=== PATIENT | female | born 1960 | race Caucasian/White ===

== ENCOUNTER 2019-11-10 20:29 | Emergency (ER) | payer MEDICARE, SELFPAY ==
[2019-11-10 20:31] VITALS: BP 140/84; PULSE 91; RESP 16; TEMP 37; O2SAT 97
[2019-11-10 20:49] VITALS: BP 140/84; PULSE 91; RESP 16; TEMP 37; O2SAT 97; BMI 30.4
--- NOTE | 2019-11-10 20:57 | CT_ITS ---
Procedure: CT ABDOMEN PELVIS W CON Patient Age:59Y CLINICAL INDICATION: lower abd pain, bloody stools-started at noon monday. COMPARISON: No exams were available for comparison TECHNIQUE: 75 CC OPTIRAY 350 IV CONTRAST UTILIZED Axial images obtained with sagittal and coronal reformats. All CT scans at the facility use one or more dose reduction, viz: automated exposure control, m THE a/kV adjustment per patient size (including targeted exams where dose is matched to indication, i.e. head), or iterative reconstruction technique. FINDINGS: lower thorax: no acute finding THE moderate-generous size hiatal hernia measures up to 4.5 cm diameter. oblique ge junction is above the hiatus ABDOMEN: Liver: No masses or biliary dilatation. Gallbladder: small contracted GB. No radio opaque stones. CBD WNL Pancreas: No masses or peripancreatic fluid collections. spleen: normal size, subtle inhomogeneous enhancement of the spleen may likely reflects early enhancement pattern Adrenals: unremarkable Kidneys/ureters: unremarkable PELVIS: UTERUS NORMAL SIZE, TO THE LEFT OF MIDLINE. NO ADNEXAL MASSES. NO FREE FLUID Bladder: Nondistended. No obvious stones or masses. ABDOMEN & PELVIS: Stomach bowel: Nondistended. No obvious mass or thickening. LARGE BOWEL. [id number] stool at the right and transverse colon.. Upper normal wall thickness at right colon may merely reflect lack distension. however blood in stool of would encourage colonoscopy NO DIVERTICULITIS EVIDENT. NO SIGNIFICANT DIVERTICULAR DISEASE IDENTIFIED APPENDIX NORMAL, well visualized but. terminal ileum unremarkable Peritoneum: No abnormal fluid collections. No obvious inflammatory changes. No free air. Lymph nodes: No enlarged lymph nodes apparent. Vasculature: no evidence of abdominal aortic aneurysm.. minimal atherosclerotic calcification lower abdominal aorta. no retroperitoneal hemorrhage evident. Bones: no acute fracture pronounced degenerative arthritic changes of both hips. l3/4 with degenerative disc space narrowing and spondylosis IMPRESSION: no acute findings abdomen or pelvis Hiatal hernia., with upper normal wall thickness here upper normal wall thickness at the right colon WELL AREA towards splenic flexure noted-most likely reflecting lack distension.. however if the blood in stool persist of consider further evaluation with colonoscopy. prominent degenerative changes bilateral hip joints incidentally noted Dictated by: Noble Camarillo MD 11/11/2019 09:10 Electronically signed by Noble Camarillo MD in [place] 11/11/2019 09:10
[2019-11-10 21:00] VITALS: BP 134/81; PULSE 84; RESP 18; O2SAT 98
[2019-11-10 21:06] LABS: Microscopic, Urine URINE MICROSCOPIC (MICROSCOPIC)
[2019-11-10 21:13] LABS: Appearance,Urine CLEAR (Clear); Bilirubin,Urine Negative (Negative); Blood, Urine 1+ (Negative); Color,Urine YELLOW (Yellow); Glucose,Urine (UA) Negative (Negative); Ketones,Urine Negative (Negative); Leukocyte Esterase,Urine TRACE (Negative); Nitrate,Urine Negative (Negative); Protein,Urine Negative (Negative); Urobilinogen,Urine 0.2 EU/dl (0.2)
[2019-11-10 21:13] LABS: Basophils # 0.1 K/mm3 (0-0.2); Basophils % 1.1 % (0.1-2.0); Eosinophils # 0.1 K/mm3 (0.0-0.4); Eosinophils % 1.9 % (0.1-12.0); Hematocrit 42.4 % (37.0-47.0); Hemoglobin 13.3 g/dL (12.2-16.2); Lymphocytes # 2.4 K/mm3 (0.7-4.5); Lymphocytes % 34.4 % (10-50); Mean Corpuscular HGB Conc 31.5 g/dL (31.8-35.4); Mean Corpuscular Hemoglobin 28.7 pg (27.0-31.2); Mean Platelet Volume 8.3 fl (7.4-10.4); Monocytes # 0.4 K/mm3 (0.1-1.0); Monocytes % 5.3 % (1.7-9.3); Neutrophils # 4.1 K/mm3 (1.8-7.8); Neutrophils % 57.3 % (37.0-80.0); Platelet Count 253 K/mm3 (142-424); Red Blood Count 4.65 M/mm3 (4.20-5.40); Red Cell Distribution Width 13.6 % (11.5-17.5); White Blood Count 7.1 K/mm3 (4.8-10.8)
[2019-11-10 21:20] LABS: Occult Blood,Stool Positive (Negative)
[2019-11-10 21:22] LABS: Alanine Aminotransferase 32 U/L (12-78); Albumin Level 4.4 g/dl (3.5-5.0); Albumin/Globulin Ratio 1.4 (1.1-1.8); Alkaline Phosphatase 93 U/L (38-126); Amylase 68 U/L (30-110); Anion Gap 13.7 mEq/L (5-15); Aspartate Amino Transferase 48 U/L (14-36); Bilirubin,Total 0.3 mg/dl (0.2-1.3); Blood Urea Nitrogen 9 mg/dl (7-17); Calcium 9.3 mg/dl (8.4-10.2); Carbon Dioxide 24 mmol/L (22.0-30.0); Chloride 103 mmol/L (98-107); Creatinine Clearance Estimated 82 mL/min (50-200); Estimated Glomerular Filt Rate 64 ml/min (>60); GFR (African American) 77 ML/MIN (>60); Globulin 3.2 g/dL (1.3-3.2); Glucose 102 mg/dl (74-100); Lipase 215 U/L (23-300); Potassium 3.7 mmoL/L (3.5-5.1); Sodium 137 mmol/L (136-145); Total Protein,Serum 7.6 g/dl (6.3-8.2)
[2019-11-10 21:27] LABS: C-Reactive Protein 3.2 mg/L (0-4)
--- NOTE | 2019-11-10 21:28 | HMH.EDNVD ---
ED Disposition Clinical Impression: BRBPR (bright red blood per rectum) Abdominal pain Qualifiers: Abdominal location: lower abdomen, unspecified Qualified Code(s): R10.30 - Lower abdominal pain, unspecified Disposition: Home, Self-Care Condition on Discharge: Good Instructions: DI for Acute Abdomen Additional Instructions: call pcp in am Referrals: Provider,Referral, [Primary Care Provider] - - Critical Care Critical Care Time: No Attestation: On 11/10/19, the high probability of a clinically significant, sudden or life threatening deterioration of the following system(s) required my full and direct attention, intervention and personal management. The time I documented below is in addition to time spent performing reported procedures but includes the following listed in this critical care notation. Medical Decision Making - Medical Records Medical records reviewed: Yes: I reviewed the patient's medical records. - Azeem Inquiry Pt receiving controlled substance: No Vital Signs: 11/10/19 20:49 Temperature 98.6 F Temperature Source Oral Pulse Rate [Right] 91 H Respiratory Rate 16 Blood Pressure [Right Arm] 140/84 Blood Pressure Mean [Right Arm] 102 Blood Pressure Source [Right Arm] Automatic Cuff Blood Pressure Position [Right Arm] Sitting 02 Sat by Pulse Oximetry 97 Oxygen Delivery Method Room Air - Lab Data Lab results reviewed: Yes: I reviewed the patient's lab results. Lab Results 11/10/19 20:45: Urine Color Yellow, Urine Appearance Clear, Urine pH 6.0, Ur Specific [place] 1.010, Urine Protein Negative, Urine Glucose (UA) Negative, Urine Ketones Negative, Urine Blood 1+, Urine Nitrate Negative, Urine Bilirubin Negative, Urine Urobilinogen 0.2, Ur Leukocyte Esterase Trace, Urine RBC 3-5, Ur Squamous Epith Cells 5-10 11/10/19 21:02: WBC 7.1, RBC 4.65, Hgb 13.3, Hct 42.4, MCV 91.0, MCH 28.7, MCHC 31.5 L, RDW 13.6, Plt Count 253, MPV 8.3, Neut % (Auto) 57.3, Lymph % (Auto) 34.4, [place] % (Auto) 5.3, Eos % (Auto) 1.9, Baso % (Auto) 1.1, Neut # (Auto) 4.1, Lymph # (Auto) 2.4, [place] # (Auto) 0.4, Eos # (Auto) 0.1, Baso # (Auto) 0.1, ESR 25 11/10/19 21:02: Sodium 137, Potassium 3.7, Chloride 103, Carbon Dioxide 24, Anion Gap 13.7, BUN 9, Creatinine 0.90, Estimated Creat Clear 82, Estimated GFR 64, Est GFR ( Amer) 77, Glucose 102 H, Calcium 9.3, Total Bilirubin 0.3, AST 48 H, ALT 32, Alkaline Phosphatase 93, C-Reactive Protein 3.2, Total Protein 7.6, Albumin 4.4, Globulin 3.2, Albumin/Globulin Ratio 1.4, Amylase 68, Lipase 215 11/10/19 21:05: Stool Occult Blood Positive A Result diagrams: 11/10/19 21:02 11/10/19 21:02 Orders (Tests/Meds): ED MEDICATIONS Generic Name Dose Route Start Last Admin Trade Name Freq PRN Reason Stop Dose Admin Sodium Chloride 1,000 mls @ 999 mls/hr 11/10/19 21:00 11/10/19 21:10 Sod Chlor 0.9% 1000ml Bag IV 11/10/19 22:00 999 mls/hr .[id number] [place] Administration Discontinued Medications Generic Name Dose Route Start Last Admin Trade Name Freq PRN Reason Stop Dose Admin Ioversol 75 ml 11/10/19 22:19 11/10/19 22:20 Rad-Optiray 350 100ml Vial IV 11/10/19 22:20 75 ml ONCE ONE Administration Protocol Pantoprazole Sodium 80 mg 11/10/19 20:57 11/10/19 21:10 Protonix 40mg Vial IV 11/10/19 20:58 80 mg ONCE ONE Administration Sodium Chloride 10 ml 11/10/19 22:19 11/10/19 22:20 Rad-Saline Flush 10ml Syringe IV 11/10/19 22:20 10 ml ONCE ONE Administration ORDERS Category Date Time Status CT abdomen pelvis w con Stat Cat Scan 11/10/19 20:57 Taken - CT Data CT Scan: Abdomen, Pelvis Time Received: 23:[address] Reviewed: Yes: I have viewed the radiologist's interpretation Preliminary Findings: Normal/NAD Nausea/Vomiting/Diarrhea HPI - General Chief complaint: Abdominal Pain Stated complaint: Blood in stools, abd pain Time Seen by Provider: 11/10/19 21:00 Mode of Arrival: Ambulatory Source of Information:
[2019-11-10 21:39] LABS: Erythrocyte Sedimentation Rate 25 mm/hr (0-30)
[2019-11-10 22:00] VITALS: BP 139/80; PULSE 90; RESP 16; O2SAT 98
[2019-11-10 23:00] VITALS: BP 144/86; PULSE 89; RESP 18; O2SAT 97
--- NOTE | 2019-11-10 23:30 | PC.NURSE ---
saw was discharged prior to 2329. so not vitals for that time.
[2019-11-10 23:36] VITALS: BP 144/86; PULSE 89; RESP 16; TEMP 37; O2SAT 97
== END 2019-11-10 23:37 | disposition home or self-care (01) ==
PROVIDERS: Emergency Provider Emergency Medicine
DX: K62.5 Hemorrhage of anus and rectum (principal); R10.30 Lower abdominal pain, unspecified; F12.10 Cannabis abuse, uncomplicated; E78.5 Hyperlipidemia, unspecified; K21.9 Gastro-esophageal reflux disease without esophagitis; Z91.040 Latex allergy status
CPT/HCPCS: 74177; 80053; 81001; 82150; 82272; 83690; 85025; 85651; 86140; 96365; 96375; 99284; G0328; Q9967

== ENCOUNTER → 2020-03-11 18:51 | Outpatient (CLI) | payer MEDICARE, SELFPAY ==
[2020-03-11 19:04] LABS: Basophils # 0.1 K/mm3 (0-0.2); Basophils % 0.6 % (0.1-2.0); Eosinophils # 0.1 K/mm3 (0.0-0.4); Hematocrit 45.3 % (37.0-47.0); Hemoglobin 14.9 g/dL (12.2-16.2); Lymphocytes # 2.4 K/mm3 (0.7-4.5); Lymphocytes % 26.7 % (10-50); Mean Corpuscular HGB Conc 32.8 g/dL (31.8-35.4); Mean Corpuscular Hemoglobin 29.3 pg (27.0-31.2); Mean Corpuscular Volume 89.4 fl (81-99); Monocytes # 0.5 K/mm3 (0.1-1.0); Monocytes % 5.1 % (1.7-9.3); Neutrophils # 5.9 K/mm3 (1.8-7.8); Neutrophils % 66.6 % (37.0-80.0); Platelet Count 351 K/mm3 (142-424); Red Blood Count 5.07 M/mm3 (4.20-5.40); Red Cell Distribution Width 13.3 % (11.5-17.5); White Blood Count 8.9 K/mm3 (4.8-10.8)
[2020-03-11 19:09] LABS: Chloride 103 mmol/L (98-107)
[2020-03-11 19:10] LABS: Potassium 4.6 mmoL/L (3.5-5.1); Sodium 140 mmol/L (136-145)
[2020-03-11 19:12] LABS: Alanine Aminotransferase 16 U/L (12-78); Anion Gap 14.6 mEq/L (5-15); Aspartate Amino Transferase 26 U/L (14-36); Blood Urea Nitrogen 13 mg/dl (7-17); Carbon Dioxide 27 mmol/L (22.0-30.0); Estimated Glomerular Filt Rate 85 ml/min (>60); GFR (African American) 103 ML/MIN (>60)
[2020-03-11 19:13] LABS: Albumin Level 4.1 g/dl (3.5-5.0); Albumin/Globulin Ratio 1.3 (1.1-1.8); Alkaline Phosphatase 93 U/L (38-126); Bilirubin,Total 0.5 mg/dl (0.2-1.3); Calcium 10.2 mg/dl (8.4-10.2); Chol/HDL Ratio 6.6 (1-3.5); Cholesterol 283 mg/dl (140-200); Globulin 3.1 g/dL (1.3-3.2); Glucose 123 mg/dl (74-100); HDL Cholesterol 43 mg/dl (40-60); Total Protein,Serum 7.2 g/dl (6.3-8.2); Triglycerides 243 mg/dl (30-150); VLDL Cholesterol 49 mg/dL (0-40)
[2020-03-11 19:29] LABS: Free T4 (Free Thyroxine) 1.33 ng/dl (0.78-2.19)
[2020-03-11 19:44] LABS: Thyroid Stimulating Hormone 2.82 uIU/mL (0.465-4.68)
== END ==
PROVIDERS: Visit Provider Emergency Medicine
DX: R10.9 Unspecified abdominal pain (principal); E05.90 Thyrotoxicosis, unspecified without thyrotoxic crisis or storm; Z79.899 Other long term (current) drug therapy
CPT/HCPCS: 80053; 80061; 84439; 84443; 85025

== ENCOUNTER → 2020-09-29 14:33 | Outpatient (CLI) | payer MEDICARE, BC, SELFPAY ==
[2020-09-29 14:51] LABS: Basophils # 0.1 K/mm3 (0-0.2); Basophils % 0.9 % (0.1-2.0); Eosinophils # 0.1 K/mm3 (0.0-0.4); Eosinophils % 1.3 % (0.1-12.0); Hematocrit 42.7 % (37.0-47.0); Hemoglobin 13.8 g/dL (12.2-16.2); Lymphocytes # 2.3 K/mm3 (0.7-4.5); Lymphocytes % 33.7 % (10-50); Mean Corpuscular HGB Conc 32.4 g/dL (31.8-35.4); Mean Corpuscular Hemoglobin 29.1 pg (27.0-31.2); Mean Corpuscular Volume 89.7 fl (81-99); Mean Platelet Volume 9.3 fl (7.4-10.4); Monocytes # 0.4 K/mm3 (0.1-1.0); Monocytes % 5.3 % (1.7-9.3); Neutrophils # 4.1 K/mm3 (1.8-7.8); Neutrophils % 58.9 % (37.0-80.0); Platelet Count 321 K/mm3 (142-424); Red Blood Count 4.76 M/mm3 (4.20-5.40); Red Cell Distribution Width 13.8 % (11.5-17.5)
[2020-09-29 14:55] LABS: Alanine Aminotransferase 14 U/L (12-78); Albumin Level 4.3 g/dl (3.5-5.0); Albumin/Globulin Ratio 1.4 (1.1-1.8); Alkaline Phosphatase 85 U/L (38-126); Anion Gap 14.1 mEq/L (5-15); Aspartate Amino Transferase 25 U/L (14-36); Bilirubin,Total 0.8 mg/dl (0.2-1.3); Blood Urea Nitrogen 16 mg/dl (7-17); Carbon Dioxide 23 mmol/L (22.0-30.0); Chloride 107 mmol/L (98-107); Chol/HDL Ratio 4.2 (1-3.5); Cholesterol 178 mg/dl (140-200); Estimated Glomerular Filt Rate 85 ml/min (>60); GFR (African American) 103 ML/MIN (>60); Glucose 97 mg/dl (74-100); HDL Cholesterol 42 mg/dl (40-60); Potassium 4.1 mmoL/L (3.5-5.1); Sodium 140 mmol/L (136-145); Total Protein,Serum 7.3 g/dl (6.3-8.2); Triglycerides 104 mg/dl (30-150); VLDL Cholesterol 21 mg/dL (0-40)
[2020-09-29 15:05] LABS: Direct LDL Cholesterol 115.36 mg/dL (100-129)
[2020-09-29 15:12] LABS: Free T4 (Free Thyroxine) 1.34 ng/dl (0.78-2.19)
[2020-09-29 15:14] LABS: 25-OH Vitamin D, Total < 12.8 ng/mL (30-100)
[2020-09-29 15:25] LABS: Thyroid Stimulating Hormone 2.39 uIU/mL (0.465-4.68)
[2020-09-29 17:11] LABS: Erythrocyte Sedimentation Rate > 140 mm/hr (0-30)
== END ==
PROVIDERS: Visit Provider Emergency Medicine
DX: R10.9 Unspecified abdominal pain (principal); R63.4 Abnormal weight loss; E78.5 Hyperlipidemia, unspecified; E55.9 Vitamin D deficiency, unspecified
CPT/HCPCS: 80053; 80061; 82306; 84439; 84443; 85025; 85651

== ENCOUNTER → 2020-10-06 08:57 | Outpatient (CLI) | payer MEDICARE, BC, SELFPAY ==
--- NOTE | 2020-10-06 08:57 | MR_ITS ---
PROCEDURE: MR LUMBAR SPINE WO CON CLINICAL INDICATION: back pain Pt c/o lbp with bilateral leg weakness, rt worse than left. Pt denies trauma or injury and states she cannot walk without a cane. Pt states she has had symptoms [id number]. COMPARISON: No exams were available for comparison TECHNIQUE: Standard multiplanar multiecho sequences are performed without contrast. 3-D MIP and myelographic images are also rendered and reviewed FINDINGS: There is normal alignment. The spinal cord ends at the L1 level. L1-L2: Small anterior osteophytes. Incidental lipomas or hemangiomas at T12 L1 and L2. L2-L3: Unremarkable. L3-L4: Degenerative disc disease with type 2 endplate changes. Minimal bulging disc with mild facet ligamentum hypertrophy with mild bilateral foraminal narrowing. L4-5: Minimal bulging disc slightly eccentric toward the left. Mild facet hypertrophic change. L5-S1: Minimal bulging disc. Mild facet and ligamentum hypertrophy. No canal stenosis or extruded herniated disc evident. 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 IMPRESSION: Mild lumbar spondylosis as detailed above. No extruded herniated disc or canal stenosis. Please see above for detail. Dictated by: Scot Warner MD 10/08/2020 11:07 Scot Warner MD in [facility] 10/08/2020 11:07
--- NOTE | 2020-10-06 09:42 | XR_ITS ---
PROCEDURE: XR HIP RT 2-3V W/PELVIS CLINICAL INDICATION: hip pain right hip COMPARISON: No exams were available for comparison FINDINGS: Severe osteoarthritic changes are involving the right hip with loss of joint space osteosclerosis and formation with subchondral cystic changes the femoral head and acetabulum. No fracture or dislocation. No lytic or blastic change. IMPRESSION: Severe osteoarthritis right. Dictated by: Scot Warner MD 10/06/2020 16:19 Scot Warner MD in [facility] 10/06/2020 16:19
--- NOTE | 2020-10-06 09:42 | XR_ITS ---
PROCEDURE: XR HIP LT 2-3V W/PELVIS CLINICAL INDICATION: hip pain COMPARISON: No exams were available for comparison FINDINGS: There are severe osteoarthritic changes of the left hip with loss of joint space osteosclerosis osteophyte formation and subchondral cystic changes of the femoral head and acetabulum. No fracture or dislocation. There are some dysplastic changes the left femoral head with mild flattening. IMPRESSION: Severe osteoarthritis of the left hip with developing dysplastic changes of the femoral head. Dictated by: Scot Warner MD 10/06/2020 16:20 Scot Warner MD in [facility] 10/06/2020 16:20
== END ==
PROVIDERS: PCP Emergency Medicine; Visit Provider Emergency Medicine
DX: M54.16 Radiculopathy, lumbar region (principal); M54.5 Low back pain; M25.552 Pain in left hip
CPT/HCPCS: 72148; 73502; 76376

== ENCOUNTER → 2020-10-08 07:52 | Outpatient (CLI) | payer MEDICARE, BC, SELFPAY ==
--- NOTE | 2020-10-08 07:52 | MM_ITS ---
PROCEDURE: MM DIG SCREENING MAMM BI W/CAD Digital Breast Tomosynthesis Included CLINICAL INDICATION: screening There is no personal or family history of breast cancer. We have requested previous films [place], [place] approximately 3 weeks ago and they have not arrived as yet. COMPARISON: No exams were available for comparison TECHNIQUE: Standard CC and MLO images and 3D Tomosynthesis was obtained. R2 CAD reviewed. FINDINGS: Mild scattered diffuse fibroglandular densities are seen throughout both breasts. Numerous benign-appearing microcalcifications are seen in each breast. There is no suspicious lesion and no suspicious microcalcifications. If previous studies arrive an addendum can be dictated IMPRESSION: Fibrofatty parenchyma with no suspicious lesions seen BI-RAD Category: 2 Benign Finding(s) FOLLOW-UP: 1YR 1 Year Follow-up (A letter has been sent to the patient regarding results of the study.) Dictated by: Dr. Héctor Marcelino MD 10/30/2020 07:42 Dr. Héctor Marcelino MD in [facility] 10/30/2020 07:42
== END ==
PROVIDERS: PCP Emergency Medicine; Visit Provider Emergency Medicine
DX: Z12.31 Encounter for screening mammogram for malignant neoplasm of breast (principal)
CPT/HCPCS: 77063; 77067

== ENCOUNTER → 2020-10-19 09:48 | Outpatient (CLI) | payer MEDICARE, MEDICAID, SELFPAY ==
--- NOTE | 2020-10-19 10:01 | XR_ITS ---
PROCEDURE: XR DEXA AXIAL SKELETON CLINICAL HISTORY: screening COMPARISON: No exams were available for comparison FINDINGS: The right hip BMD is 0.828 grams/cm2 with a T-score of -0.9. The left hip BMD is 0.751 with a T-score of -1.6. The lumbar spine BMD is 1.054 with a T-score of 0.1. IMPRESSION: Osteopenia of the left hip joint, associated with moderately increased fracture risk. FRAX score for a 10 year fracture risk as described below; Major osteoporotic fracture at 27 percent Hip fracture 0.6 percent. Based on these results a follow-up exam is recommended in 2 year. Dictated by: Hiral Mitchell 10/19/2020 10:58 Hiral Mitchell in [facility] 10/19/2020 10:58
== END ==
PROVIDERS: PCP Emergency Medicine; Visit Provider Emergency Medicine
DX: Z78.0 Asymptomatic menopausal state (principal)
CPT/HCPCS: 77080

== ENCOUNTER 2020-11-06 09:00 | Outpatient (RCR) | payer MEDICARE, BC, SELFPAY ==
--- NOTE | 2020-10-05 13:47 | HMH.PTOPEV ---
PT Outpatient Evaluation Rehab PT Outpatient Evaluation Start: 10/05/20 13:36 Freq: Status: Active Protocol: Document 10/05/20 13:36 HELENE (Rec: 10/05/20 13:47 HELENE [id number]) Electronically Signed By Jerry Nesbitt, PT 10/05/20 13:36 Outpatient Therapy Subjective History Subjective History Pt reports insidious onset B LE pain and weakness over the last ~12 months. Pt reports s/ s have gotten progressively worse recently, and 'I've gotten really stiff in my hips '. Pt reports severe B hip/ thigh area pain and weakness, swelling in L>R LE, pain in B ankles, intermittent LBP, and intermittent episodes 'where it feels like my left leg is going to give out'. Chief Complaint Pain,Stiff,Swelling,Gives out/ Unstable,Paresthesia,Weakness Symptom Type Ache,Sharp,Dull,Stabbing, Burning,Numbness,Tingling Symptoms Relieved By Rest/Positioning Symptoms Aggravated By Standing,Bending/Stooping, Physical Activity,Walking, Lifting Prior Functional Limitations Lifting,Housework,Standing, Walking,Balance,Bending/ Stooping Current Functional Limitations Lifting,Housework,Standing, Walking,Balance,Bending/ Stooping Symptom Description Constant but Variable Level of pain today (0-10) 9 Pain scale - at its best (0-10) 8 Pain scale - at its worst (0-10) 10 Lumbopelvic Eval Posture Thoracic Spine Posture Standing Position Flattened Lumbar Spine Posture Standing Position Flattened Assistive device Assistive Devices Straight Cane Gait Observation General Gait Pattern Observation Narrow Based Gait,Ataxic Gait Palapation tenderness bilateral paraspinal tenderness Yes: 2/4 buttock tenderness Yes: 3/4 Manual Muscle Test Bilateral Knee Extension Strength Grade 4 Good Knee Flexion Strength Grade 4 Good Hip Flexion Strength Grade 3+ Fair+ Hip Abduction Strength Grade 3 Fair Hip Adduction Strength Grade 3 Fair Hip External Rotation Strength Grade 3 Fair Hip Internal Rotation Strength Grade 3 Fair Gluteus Gianluca Strength Grade 3+ Fair+ Extensor Hallucis Longus Strength Grade 4 Good Ankle Dorsiflexion Strength Grade 4 Good Gastronemius/Soleus Strength Grade 4 Good Hip/Knee Eval Palpation T
--- NOTE | 2020-11-06 09:27 | HMH.RHREAS ---
Rehab Reassessment Rehab OP Re-assessment Start: 11/06/20 09:15 Freq: Status: Active Protocol: Document 11/06/20 09:15 HELENE (Rec: 11/06/20 09:27 HELENE [id number]) Electronically Signed By Jerry Nesbitt, PT 11/06/20 09:15 Rehab Re-assessment Subjective Subjective PT REPORTS 6-8/10 GLOBAL BACK AND BLE PAIN ON VAS, AND FEELS IMPROVEMENT IN B LE STRENGTH, ENDURANCE, AND GAIT Objective Objective Notes TUG: W/SC 19SEC MMT: B HIP FLX 3+/5, B KNEE EXT 4--4/5, B KNEE FLX 4/5, B HIP EXT,ABD,ADD 3+/5 TTP: B LUMBAR PARA MM 2-3/4 TINETTI: 12 PROM:B HIP FLX W/KNEE FLXED 0- 90, HIP W/KNEE EXT'D 0-40 Assessment Progress Assessment Progressing as Expected Assessment Notes PT W/IMPROVED ROM, GAIT, AND STRENGTH Patient goals met STG'S 01/01 Goals Not Met STG'S 12/01, LTG'S 06/03 Plan Plan PT TO CONT. W/SKILLED P.T. TO MAKE FURTHER IMPROVEMENTS WITH BALANCE, STRENGTH, AND ROM TO ALLOW FOR OPTIMAL FUNCTION Frequency of Therapy 2-3X/WK Duration of therapy 4-6 WKS Time and Billing Re-Eval Time 15 Re-Eval Billing Units 0 PHYSICIAN CERTIFICATION: I certify the specified therapy services for Yoly Olivier are required, authorized, and reviewed every 30 days.
== END 2020-11-06 09:05 | disposition home or self-care (01) ==
LOC: PT 09:00
PROVIDERS: PCP Emergency Medicine; Visit Provider Emergency Medicine
DX: R26.89 Other abnormalities of gait and mobility
CPT/HCPCS: 97010; 97110; 97140; 97163; 97164

== ENCOUNTER → 2020-11-17 09:23 | Outpatient (CLI) | payer MEDICARE, BC, SELFPAY ==
--- NOTE | 2020-11-17 09:26 | CA_ITS ---
APPROVED REPORT EXAM: Comprehensive 2D, Doppler, and color-flow Echocardiogram Customer Relations Assistant: Arianne Douglas CRT Ht: 5 ft 2 in Wt: 160lbs BSA: 1.74 BP: 162/86 mmHg Indications: Hyperlipidemia, Hypertension/HDD, GERD, PRE op hip replacement 2D Dimensions LVOT 1.72 cm (M/F) 1.5-2.5 LA Volume 39.30 mL LA Volume Index 22.60 mL/m2 (M/F) 16-34 M-Mode Dimensions RVDd 2.63 cm (0.9-2.6) LA Diam 3.49 cm (1.9-4.0) LVDd 3.73 cm (3.5-5.7) Ao Diam 3.45 cm (2.0-3.7) LVDs 2.67 cm (3.5-5.7) IVSd 0.98 cm (0.6-1.1) PWd 1.02 cm (0.6-1.1) EF (Teich) 55.60% FS 28.40% EDV (Teich) 59.30 mL TAPSE 1.62 (<1.7) ESV (Teich) 26.30 mL LV Diastology E Decel Time 163.00 (160-240 msec) E/A Ratio 0.59 MED E' 6.50 (< 7 cm/sec) MED A' 9.20 cm/s E'/MED E' Ratio 9.60 (>14) LAT E' 6.00 (<10 cm/sec) LAT A' 12.60 cm/s E/LAT E' Ratio 10.40 (>14) Aortic Valve AO Peak GR. 5.40 mmHg Mitral Valve MV E Max French. 62.00 (40-130 cm/s) MV A Velocity 106.00 (40-130 cm/s) E/A Ratio 0.59 MV Decel. Time 163.00 (160-240 ms) MV PHT 48.00 ms Pulmonary Valve PV Peak Velocity 70.00 (50-150 cm/s) Tricuspid Valve TR P. Velocity 258.00 cm/s RAP Estimate 10.00 mmHg RVSP 36.60 mmHg Left Ventricle Left atrium is mildly enlarged, left ventricle is normal size, mild concentric left ventricular hypertrophy, visually estimated ejection fraction 55% with no regional wall motion abnormality. Grade 1 diastolic dysfunction seen without tissue Doppler evidence of raise left atrial pressure. Right Ventricle Right atrium and right ventricle are normal size and contractility. Aortic Valve Aortic valve is minimally calcified without aortic stenosis or aortic insufficiency. Mitral Valve Mitral valve grossly normal, there is trace mitral regurgitation. Tricuspid Valve Tricuspid grossly normal, there is trace tricuspid regurgitation, tricuspid regurgitation jet velocity is inadequate for calculation of the right ventricular systolic pressure. Pulmonic Valve Pulmonic valve is poorly visualized. Great Vessels Aortic root is normal size. Pericardium No significant pericardial effusion noted. Conclusion 1. Mildly enlarged left atrium, normal left ventricular size, mild concentric left ventricular hypertrophy, visually estimated ejection fraction 55% with no regional wall motion abnormality, grade 1 diastolic dysfunction seen without tissue Doppler evidence of raise left atrial pressure. 2. Trace mitral and tricuspid regurgitation. 3. No significant pericardial effusion noted. Electronically signed by : Jonathon 11/17/2020 19:03:06
== END ==
PROVIDERS: PCP Emergency Medicine; Visit Provider Orthopaedic Surgery
DX: Z01.810 Encounter for preprocedural cardiovascular examination (principal); M25.552 Pain in left hip
CPT/HCPCS: 93306

== ENCOUNTER → 2020-11-19 06:33 | Outpatient (CLI) | payer MEDICARE, BC, SELFPAY ==
--- NOTE | 2020-11-19 06:37 | CT_ITS ---
PROCEDURE: CT HIP LT WO CON CLINICAL HISTORY: LT hip osteoarthrits lt hip preop planning COMPARISON: CT CT ABDOMEN PELVIS W CON from 11/10/2019 CR XR HIP LT 2-3V W/PELVIS from 10/06/2020 TECHNIQUE: Axial images obtained with sagittal and coronal reformats. All CT scans at the facility use one or more dose reduction, viz: automated exposure control, ma/kV adjustment per patient size (including targeted exams where dose is matched to indication, i.e. head), or iterative reconstruction technique. FINDINGS: There are severe osteoarthritic changes of the left hip with loss of joint space superiorly. Numerous subcortical cysts are present in the acetabulum and in the femoral head superiorly with some mild cortical collapse of the femoral head laterally. Prominent osteophytes are present. There is a faint calcific density along the inferior aspect of the hip joint at the femoral head and neck region consistent with a loose body at 18 mm. No significant hip joint effusion. No bony destructive process. IMPRESSION: Severe osteoarthritis of the left hip with subchondral cystic changes and dysplastic changes of the femoral head and suspected loose body along the inferior aspect of the hip joint. Dictated by: Scot Warner MD 11/20/2020 13:49 Scot Warner MD in [facility] 11/20/2020 13:49
== END ==
PROVIDERS: PCP Emergency Medicine; Visit Provider Orthopaedic Surgery
DX: M16.12 Unilateral primary osteoarthritis, left hip (principal)
CPT/HCPCS: 73700

== ENCOUNTER → 2020-11-21 08:16 | Outpatient (CLI) | payer MEDICARE, BC, SELFPAY ==
[2020-11-21 08:19] LABS: Microscopic, Urine URINE MICROSCOPIC (MICROSCOPIC)
[2020-11-21 08:57] LABS: Basophils # 0.1 K/mm3 (0-0.2); Basophils % 0.8 % (0.1-2.0); Eosinophils # 0.1 K/mm3 (0.0-0.4); Hematocrit 42.7 % (37.0-47.0); Hemoglobin 13.8 g/dL (12.2-16.2); Lymphocytes # 1.9 K/mm3 (0.7-4.5); Lymphocytes % 29.1 % (10-50); Mean Corpuscular HGB Conc 32.4 g/dL (31.8-35.4); Mean Corpuscular Hemoglobin 28.8 pg (27.0-31.2); Mean Corpuscular Volume 88.9 fl (81-99); Mean Platelet Volume 8.3 fl (7.4-10.4); Monocytes # 0.3 K/mm3 (0.1-1.0); Monocytes % 4.9 % (1.7-9.3); Neutrophils # 4.2 K/mm3 (1.8-7.8); Neutrophils % 63.1 % (37.0-80.0); Platelet Count 289 K/mm3 (142-424); Red Cell Distribution Width 13.5 % (11.5-17.5); White Blood Count 6.6 K/mm3 (4.8-10.8)
[2020-11-21 10:13] LABS: Appearance,Urine CLEAR (Clear); Bilirubin,Urine Negative (Negative); Blood, Urine TRACE-I (Negative); Color,Urine YELLOW (Yellow); Glucose,Urine (UA) Negative (Negative); Ketones,Urine Negative (Negative); Leukocyte Esterase,Urine Negative (Negative); Nitrate,Urine Negative (Negative); PH,Urine 7.5 (5.0-8.5); Protein,Urine Negative (Negative); Urobilinogen,Urine 0.2 EU/dl (0.2)
[2020-11-21 10:15] LABS: Chloride 105 mmol/L (98-107); Potassium 4.3 mmoL/L (3.5-5.1); Sodium 140 mmol/L (136-145)
[2020-11-21 10:18] LABS: Alanine Aminotransferase 12 U/L (12-78); Albumin Level 4.2 g/dl (3.5-5.0); Albumin/Globulin Ratio 1.6 (1.1-1.8); Alkaline Phosphatase 84 U/L (38-126); Anion Gap 11.3 mEq/L (5-15); Aspartate Amino Transferase 22 U/L (14-36); Bilirubin,Total 0.6 mg/dl (0.2-1.3); Blood Urea Nitrogen 13 mg/dl (7-17); Calcium 9.9 mg/dl (8.4-10.2); Carbon Dioxide 28 mmol/L (22.0-30.0); Estimated Glomerular Filt Rate 102 ml/min (>60); GFR (African American) 123 ML/MIN (>60); Globulin 2.7 g/dL (1.3-3.2); Glucose 107 mg/dl (74-100); Total Protein,Serum 6.9 g/dl (6.3-8.2)
[2020-11-21 10:29] LABS: Amorphous Sediment,Urine 1+ /lpf; RBC,Urine Occasional #/hpf (0-3)
== END ==
PROVIDERS: Visit Provider Orthopaedic Surgery
DX: K62.5 Hemorrhage of anus and rectum (principal); M16.9 Osteoarthritis of hip, unspecified
CPT/HCPCS: 36415; 80053; 81001; 85025; 86850

== ENCOUNTER 2020-11-23 08:35 | Observation (INO) | payer MEDICARE, BC, SELFPAY ==
[2020-11-23] VITALS (26 sets, daily range): BP systolic 80–140; BP diastolic 45–86; PULSE 62–116; RESP 12–20; TEMP 36.3–37.7; O2SAT 98–100; BMI 29.4
--- NOTE | 2020-11-23 08:41 | ECG_ITS ---
APPROVED REPORT Exam: Resting ECG HR:85 bpm ECG Measurements Heart Rate 85 AXES NE 152 P 31 QRSd 72 QRS 22 QT 380 T 32 QTc 452 Conclusion Normal sinus rhythm Normal ECG Electronically signed by : Jaden Trivedi, 11/24/2020 08:49:57
--- NOTE | 2020-11-23 08:41 | XR_ITS ---
PROCEDURE: XR CHEST PORTABLE CLINICAL HISTORY: pre-op COMPARISON: No exams were available for comparison FINDINGS: The cardiomediastinal silhouette and pulmonary vascularity are within normal limits. The lungs are clear without infiltrates, suspicious nodules, or pleural effusions. No acute bony abnormalities. IMPRESSION: No acute findings. Dictated by: Scot Warner MD 11/23/2020 09:21 Scot Warner MD in [place] 11/23/2020 09:21
[2020-11-23 09:21] LABS: Coronavirus 19 IgG Antibody Negative (Negative); Coronavirus 19 IgM Antibody Negative (Negative)
--- NOTE | 2020-11-23 10:03 | HMH.ANESCL ---
[facility] Anesthesia Checklist - Structural Data Admitted From: Home Planned Operative Procedure/s: l RAMAKRISHNA Consent for Planned Operative Procedure(s) Verified: Yes - Additional verifications Anesthesia Reactions: No Hx Blood Transfusions: No Blood Transfusion Reaction: No - Airway Assessment C-Spine Mobility Assessed: Yes TMJ Mobility Assessed: Yes Dentition: Dentures-good fit - Neurological Assessment Level of Consciousness: Awake, Alert, Appropriate - Anesthesia Plan Anesthesia Risk discussed: Yes Anesthesia Plan: Verified ASA Class: II Anesthesia Type: MAC w/Spinal [facility] History I have reviewed the patient's past medical history: Yes Medical History: Reports:: Gastroesophageal Reflux Disease(GERD), Hyperlipidemia, Hypertension, Seizures (2 years ago) Denies:: Cancer, Diabetes Mellitus Type 1, Diabetes Mellitus Type 2, Internal Pacemaker, MRSA *Have you ever received a pneumonia vaccine?: Yes *Have you received a flu vaccine this season?: Yes Other Medical History: Denies: Blood Transfusion Reaction Anesthesia experience/problems:: none Other Surgeries: Yes: Tubal Ligation. No: Pacemaker Amputation: No Fractures: No - *Social History Last grade of school completed: High school graduate Smoking Status: Never smoker Alcohol Intake: never Substance Use Type: marijuana *Occupational Status:: unemployed Housing: apartment Household Members: significant other *Travel in the last 8 weeks: None Family Hx:: Hyperlipidemia, Heart Attack, Cancer, Hypertension, Stroke
--- NOTE | 2020-11-23 14:51 | P.PN_ITS ---
[facility] Anesthesia Record Part I Intake, IV Amount: 2,500 Estimated blood loss (mL): 250 Urine output (mL): 450 Blood Pressure: 80/50 SaO2: 100 Pulse Rate: 73 Respiratory Rate: 12 Temperature: 97.8 F Patient is:: Awake, Stable Stable to PACU at:: 14:40
--- NOTE | 2020-11-23 14:51 | XR_ITS ---
PROCEDURE: XR HIP LT 2-3V W/PELVIS CLINICAL INDICATION: surgery follow-up surgery COMPARISON: CR XR HIP LT 2-3V W/PELVIS from 10/06/2020 FINDINGS: Status post left hip hemiarthroplasty. There is good alignment. No evidence of orthopedic complication. Postsurgical gas is present. There is a Adams catheter in place. Osteoarthritic changes are present involving the right hip severe in nature. IMPRESSION: Status post left-sided hip hemiarthroplasty with good alignment Dictated by: Scot Warner MD 11/23/2020 15:44 Scot Warner MD in [place] 11/23/2020 15:44
[2020-11-23 15:16] LABS: Microscopic,Cath URINE MICROSCOPIC (MICROSCOPIC)
[2020-11-23 15:31] LABS: Appearance,Urine/Cath CLEAR (Clear); Bilirubin,Cath Negative (Negative); Blood, Urine/Cath TRACE-L (Negative); Color,Urine/Cath YELLOW (Yellow); Glucose,Urine/Cath (UA) Negative (Negative); Ketones,Urine/Cath Negative (Negative); Leukocyte Esterase,Cath Negative (Negative); Nitrate,Cath Negative (Negative); Protein,Urine/Cath Negative (Negative); Specific Gravity, Urine/Cath 1.025 (1.005-1.030); Urobilinogen,Cath 0.2 EU/dl (0.2)
[2020-11-23 15:48] LABS: Bacteria,Urine/Cath 1+ /lpf
[2020-11-23 15:49] LABS: Mucus,Urine/Cath 1+ /lpf
--- NOTE | 2020-11-23 15:55 | PC.NURSE ---
Report received from Nataliia CHOUDHURY.
--- NOTE | 2020-11-23 16:09 | HMH.OPNOTE ---
Date of procedure: 11/23/20 Pre-op Diagnosis:: Advanced degenerative joint disease, left hip Post-op Diagnosis:: Same Procedure performed:: Uncemented total hip arthroplasty, left hip Surgeon:: Gurmeet Mitchell MD Paper Colorer(s):: Yeni Britt HAND POTTER:: Matthew Hutton Anesthesia: spinal Estimated blood loss (mL): 200 Clinical Note:: Patient is a 60-year-old female with severe degenerative arthritis of her left hip, unresponsive to conservative management. The arthritis is causing severe pain and significant disability and has not responded well to conservative management. Her mobility, ADLs and quality of life is severely impacted. The pain is also affecting her lifestyle, activities of daily living and significantly impacting her sleep. Also she is at a high risk of falls from the arthritis and stiffness. Therefore a total hip arthroplasty is indicated to relieve pain and to reduce the disability and risk of falls. She also has significant degenerative joint disease of the right hip; she is more symptomatic on the left side and has decided to proceed with a left total hip arthroplasty to begin with. Please refer to my office note for full details. Operative findings:: Preoperative examination and imaging findings were consistent with the above diagnosis. Intraoperatively, end-stage degenerative arthritis of the hip joint is noted. The femoral head is grossly arthritic and misshapen. The capsule and soft tissue around the hip joint were contacted with marked decrease in hip range of motion. The joint capsule and surrounding soft tissue were thickened and inflamed. Broken off osteophytes/loose bodies were noted around the edge of the acetabulum. Marked thinning of the posterior acetabular wall noted. The bone quality is good. Overall it was a difficult procedure given the amount of acetabular wear, degree of arthritis and stiffness of the hip joint. Operative note:: On the day of the procedure the patient was met in the preoperative area and the patient was positively identified. A physical examination was performed and documented. The operative site was appropriately marked and initialed by me. I again reviewed the diagnosis, natural history and management options in detail including both nonsurgical and surgical. We discussed the proposed surgery, risks and benefits and alternatives in detail. The complications discussed include but are not limited to infection, bleeding, injury to nerves, blood vessels and tendons, DVT and PE, fracture, limb length inequality, dislocation, implant malpositioning, implant failure, squeaking, loosening, acetabular wear, osteolysis, periprosthetic femur fracture, heterotopic ossification, abductor weakness and limp, incomplete relief of pain, incomplete recovery of function, chronic pain, likely need for further surgery in future including revision, anesthetic complications including heart attack, stroke and even . We also discussed the postoperative recovery and rehabilitation. Patient verbalized a good understanding and wished to proceed with the proposed surgery. Patient understood the risks, agreed to proceed with surgery, signed the consent form and no guarantees or assurances were given or implied. The patient was brought to the operating room and a spinal anesthesia was administered by the tobacco stripping machine operator. The patient was then positioned in the right lateral decubitus position with the left hip facing up. We used [place] hip positioner for this. All the bony prominences were appropriately padded. The left hip was then prepped with isopropyl alcohol followed by chlorhexidine and draped in the usual sterile fashion. The entire operative team wore isolation suits and the Operating Room traffic was controlled. The skin incision was marked for a posterior approach to the hip joint. The perineum and the operative site were sealed off with Ioban drape. A preprocedure timeout was performed as per hospital protocol identifying the patien
--- NOTE | 2020-11-23 16:19 | PC.NURSE ---
Dr Mitchell and Johann Patterson PANELBOARD TANK PUMPER both at bedside. See emar for further orders.
--- NOTE | 2020-11-23 16:25 | PC.NURSE ---
Pt arrived to floor via bed and Pacu staff x2. Pt fully alert and oriented. S/P left hip arthroplasty. Abduction device in place and is to remain in place for 6wks. Ice pack to left hip incision site. Site dressing is foam tape that is CDI. SCUD device x1 on rt leg, thigh high. Lungs clear throughout. Hypoactive bs all quads. No edema. Pulses strong ble. Left foot and leg remain mostly numb still as well as her rt arm and hand. (Reports Carpal Tunnel in this hand). Adams Cath patent to bsd with clear yellow urine noted in tubing and drainage bag. LR now infusing at 75ml /hr.
--- NOTE | 2020-11-23 16:50 | HMH.ORTHHP ---
*Admission Date: 11/23/20 *Reason for consult:: S/p total hip arthroplasty, left *History of present illness: Patient is a 60-year-old female who has advanced degenerative arthritis of both her hip joints unresponsive to conservative management. She was admitted to hospital following an uncomplicated primary left total hip arthroplasty earlier today. She has been having worsening bilateral hip pain for many years. There is no history of any injury. She moved to [place] from [place] last year. She says her hip pain has gradually gotten worse over the years. Her left hip is worse than the right. She localizes the pain to anterior and posterior aspect of the hip joints with radiation into the upper thigh and both knee joints. All the symptoms are worse on the left side. She reports that she has constant pain and rates that a 6 out of 10 at rest and a 10 out of 10 at its worst. She states standing, sitting and walking aggravates her pain. She has tried over the counter arthritis medication, heat and rest with no relief. She also reports severe stiffness of both hip joints. Her walking ability is severely limited and she cannot walk even few feet without pain. She uses a cane to walk with and has severe limp. All her activities of daily living and walking are severely limited because of the hip pain and stiffness. She also reports night pain and sleep disturbance on a daily basis. Her left hip gives out and she is at risk of falls. No history of any distal tingling or numbness. She reports some low back pain without radicular symptoms as well as bilateral hip pain. She reports no improvement with physical therapy. No history of any previous hip injections or surgery. No history of any previous significant hip injuries. She is retired, lives with her son and does not work. Her medical history includes hypertension, hyperlipidemia, GERD and osteopenia. She is a non-smoker. Evaluation including clinical examination, x-rays and CT scan are consistent with severe degenerative arthritis of the left hip. A left total hip arthroplasty is indicated to reduce the risk of falls, improve her pain, mobility and quality of life. The surgical and nonsurgical alternatives were discussed in detail with the patient as well as the risks and benefits of the surgery. Please refer to my office note for full details. [facility] History I have reviewed the patient's past medical history: Yes Medical History: Reports:: Gastroesophageal Reflux Disease(GERD), Hyperlipidemia, Hypertension, Seizures (2 years ago) Denies:: Cancer, Diabetes Mellitus Type 1, Diabetes Mellitus Type 2, Internal Pacemaker, MRSA *Have you ever received a pneumonia vaccine?: Yes *Have you received a flu vaccine this season?: Yes Other Medical History: Denies: Blood Transfusion Reaction Anesthesia experience/problems:: none Other Surgeries: Yes: Tubal Ligation. No: Pacemaker Amputation: No Fractures: No - *Social History Last grade of school completed: High school graduate Smoking Status: Never smoker Alcohol Intake: never Substance Use Type: marijuana *Occupational Status:: unemployed Housing: apartment Household Members: significant other *Travel in the last 8 weeks: None Family Hx:: Hyperlipidemia, Heart Attack, Cancer, Hypertension, Stroke Review of Systems - Review of Systems Review of systems:: pertinent systems reviewed and negative unless documented below - Constitutional Denies chills, Denies fever(s) - Eyes Denies change in vision - ENT Denies abnormal hearing - *Cardiovascular Denies chest pain, Denies shortness of breath - *Respiratory Denies chest congestion, Denies shortness of breath - *Gastrointestinal Denies abdominal pain, Denies change in bowel habits - *Musculoskeletal Reports abnormal walking, Reports joint pain, Reports deformity, Reports limited joint movement - Integumentary/Breasts Denies non-healing lesions, Denies skin ulcer - *Neurologic Reports abnorma
--- NOTE | 2020-11-23 19:23 | PC.NURSE ---
Report given to JuaniRN
[2020-11-24] VITALS (11 sets, daily range): BP systolic 96–133; BP diastolic 52–90; PULSE 68–112; RESP 14–20; TEMP 36.4–37.4; O2SAT 97–99
--- NOTE | 2020-11-24 00:57 | PC.NURSE ---
REPORT CALLED TO COURTNEY ROUSE RN AT THIS TIME
--- NOTE | 2020-11-24 04:55 | PC.NURSE ---
shift summary pt is alert and oriented X4. pts lung sounds are clear with sats maintained 95% or above on room air, with a rate ranging from 16-18. pts pain is controlled at this time. pt denies nausea, vomiting, or diarrhea. dressing in place cdi. olivera in place with clear yellow in color urine.
[2020-11-24 06:11] LABS: Basophils % 0.3 % (0.1-2.0); Eosinophils # 0.1 K/mm3 (0.0-0.4); Hematocrit 30.7 % (37.0-47.0); Hemoglobin 10.3 g/dL (12.2-16.2); Lymphocytes # 1.6 K/mm3 (0.7-4.5); Mean Corpuscular HGB Conc 33.7 g/dL (31.8-35.4); Mean Corpuscular Hemoglobin 29.4 pg (27.0-31.2); Mean Corpuscular Volume 87.1 fl (81-99); Mean Platelet Volume 8.1 fl (7.4-10.4); Monocytes # 0.4 K/mm3 (0.1-1.0); Monocytes % 6.7 % (1.7-9.3); Neutrophils # 3.7 K/mm3 (1.8-7.8); Platelet Count 224 K/mm3 (142-424); Red Blood Count 3.52 M/mm3 (4.20-5.40); Red Cell Distribution Width 13.6 % (11.5-17.5); White Blood Count 5.8 K/mm3 (4.8-10.8)
[2020-11-24 06:20] LABS: Anion Gap 4.6 mEq/L (5-15); Blood Urea Nitrogen 13 mg/dl (7-17); Carbon Dioxide 27 mmol/L (22.0-30.0); Chloride 108 mmol/L (98-107); Creatinine Clearance Estimated 68 mL/min (50-200); Estimated Glomerular Filt Rate 102 ml/min (>60); GFR (African American) 123 ML/MIN (>60); Glucose 104 mg/dl (74-100); Potassium 3.6 mmoL/L (3.5-5.1); Sodium 136 mmol/L (136-145)
[2020-11-24 06:41] LABS: Calcium 8.3 mg/dl (8.4-10.2)
--- NOTE | 2020-11-24 07:41 | HMH.PHAVTE ---
[facility] Pharm[facility] VTE Monitoring - Patient Demographics Admission date: 11/23/20 Report Date: 11/24/20 Time: 07:41 Allergies/Adverse Reactions: Patient Allergies latex Allergy (Intermediate, Verified 11/23/20 09:00) Rash Height: 1.57 m Weight: 73.028 kg Patient Problems: Current Active Problems Primary osteoarthritis of left hip (Acute) S/P total hip arthroplasty (Acute) - VTE Risk Labs: VTE Related Lab Results Hgb 10.3 g/dL (12.2-16.2) L 11/24/20 05:34 Hct 30.7 % (37.0-47.0) L 11/24/20 05:34 Plt Count 224 K/mm3 (142-424) 11/24/20 05:34 BUN 13 mg/dl (7-17) 11/24/20 05:34 Creatinine 0.60 mg/dl (0.52-1.04) 11/24/20 05:34 Estimated Creat Clear 68 mL/min (50-200) 11/24/20 05:34 Was VTE Risk Assessment Performed: Yes VTE Score: 2 VTE Risk Level: Very Low Risk - Prophylaxis VTE Prophylaxis Ordered?: Yes Types of VTE Prophylaxis: IPCS Thigh High, Pharmacological Location of Applied Device: Right Leg Pharmacologic Type: Other (XARELTO)
--- NOTE | 2020-11-24 07:42 | HMH.PHAINT ---
MEDICATION RECONCILIATION COMPLETED ON PATIENT USING EXTERNAL FILL HISTORY FROM PHARMACY. -DEYANIRA ROBERTO, TALAD
--- NOTE | 2020-11-24 10:04 | SW/DCPLANNER ---
Addendum entered by [facility] 11/27/20 13:48: Per Chyna with [facility] they can accept this patient for today. Patient will discharge today. COVID results (negative) have been faxed. I have spoke with nurse (Susu) and she will inform Valarie that patient will discharge today. Addendum entered by [facility] 11/27/20 09:38: Chyna with [facility] is still waiting to hear back from patients insurance. Chyna has stated that another COVID swab will be needed for this patient. This has been ordered. I will continue to follow up with Chyna. Addendum entered by [facility] 11/26/20 13:27: I have spoke with Chyna from [facility]: currently still waiting for approval from insurance. Addendum entered by [facility] 11/26/20 09:43: Patient is aware and concurs with [facility] for SNF level of care if accepted. Addendum entered by [facility] 11/26/20 09:40: Thea from [facility] notified yesterday evening that [facility] has denied approval for this patient due to being out of network. Updated patient information has been faxed to Chyna with [facility] and prior auth has been started. I will continue to follow up with Chyna. Addendum entered by [facility] 11/25/20 09:20: Thea with [facility] has started precert for this patient. I will continue to follow up with patient/Thea. Patient information has also been faxed to [facility] and they are willing to accept if [facility] is out of network. Addendum entered by [facility] 11/24/20 10:47: Patient information has been faxed to Emil Morillo and [facility]. Original Note: I have spoke with this patient this morning regarding discharge plans once patient is medically stable for discharge. Patient did have a hip replacement surgery yesterday 11/23/20. Patient stated that she resides at home with her son whom works 12 hour shifts at [employer]. Patient stated that she feels she will need placement at time of discharge. Patient resides in [place] and is interested in [facility] or [facility] at time of discharge. I will speak with Loren from [facility] and Thea from [facility] regarding this referral. Patients insurance is [employer] Medicare and will require a prior authorization. I will follow up with patient once I speak with facilities.
--- NOTE | 2020-11-24 10:25 | HMH.PTEV ---
Physical Therapy Evaluation Rehab PT IP Evaluation Start: 11/23/20 16:04 Freq: ONCE Status: Active Protocol: Document 11/24/20 10:18 [facility] (Rec: 11/24/20 10:25 [facility] [id number]) Subjective/History History History kaia is a 60-year-old female who has advanced degenerative arthritis of both her hip joints unresponsive to conservative management. She was admitted to hospital following an uncomplicated primary left total hip arthroplasty earlier today. She has been having worsening bilateral hip pain for many years. There is no history of any injury. She moved to [place] from [place] last year. She says her hip pain has gradually gotten worse over the years. Her left hip is worse than the right. She localizes the pain to anterior and posterior aspect of the hip joints with radiation into the upper thigh and both knee joints. All the symptoms are worse on the left side. She reports that she has constant pain and rates that a 6 out of 10 at rest and a 10 out of 10 at its worst. She states standing, sitting and walking aggravates her pain. She has tried over the counter arthritis medication, heat and rest with no relief. She also reports severe stiffness of both hip joints. Her walking ability is severely limited and she cannot walk even few feet without pain. She uses a cane to walk with and has severe limp. All her activities of daily living and walking are severely limited because of the hip pain and stiffness. She also reports night pain and sleep disturbance on a daily basis.
--- NOTE | 2020-11-24 10:52 | HMH.CONS ---
*Admission Date: 11/23/20 *Reason for consult:: Medical *History of present illness: 60-year-old female patient lying in bed resting quietly she denies any respiratory distress or chest pain during the night, reports pain is at a tolerable level. A left total hip arthroplasty performed 11/23/20. Discussed possible discharge to rehab facility and she is agreeable to this [facility] History I have reviewed the patient's past medical history: Yes Medical History: Reports:: Gastroesophageal Reflux Disease(GERD), Hyperlipidemia, Hypertension, Seizures (2 years ago) Denies:: Cancer, Diabetes Mellitus Type 1, Diabetes Mellitus Type 2, Internal Pacemaker, MRSA *Have you ever received a pneumonia vaccine?: Yes *Have you received a flu vaccine this season?: Yes Other Medical History: Denies: Blood Transfusion Reaction Anesthesia experience/problems:: none Laterality Cases: Left: Arthroscopy Hip, Bilateral: Carpal Tunnel Release Other Surgeries: Yes: No Previous Surgery, Tubal Ligation. No: Pacemaker Amputation: No Fractures: Yes - *Social History Last grade of school completed: 9th or 10th Smoking Status: Never smoker Alcohol Intake: never Substance Use Type: marijuana *Occupational Status:: disabled Housing: house Household Members: children *Travel in the last 8 weeks: None Family Hx:: Asthma, Cancer, Coronary Artery Disease, Diabetes, Heart Attack, Hyperlipidemia, Hypertension, Stroke, Substance abuse, Alcoholism Review of Systems - Review of Systems Review of systems:: pertinent systems reviewed and negative unless documented below - Constitutional Denies anorexia, Denies fatigue - Eyes Denies blind spots, Denies change in vision - ENT Denies abnormal hearing, Denies nosebleed - *Cardiovascular Denies chest pain, Denies shortness of breath - *Respiratory Denies change in phlegm color, Denies chest congestion - *Gastrointestinal Denies abdominal pain, Denies change in stools - *Musculoskeletal Reports abnormal walking, Reports joint pain - *Neurologic Reports abnormal walking, Denies abnormal hearing, Denies dizziness, Denies numbness, Denies tingling/numbness/burning sensations, Denies seizure-like activity - Psychiatric Denies abnormal sleep pattern, Denies hearing things others do not hear, Denies behavioral changes - Endocrine Denies cold intolerance, Denies heat intolerance - Hematologic/Lymphatic Denies easy bleeding, Denies easy bruising - Allergic/Immunologic Denies GI upset with certain foods, Denies tongue swelling Meds Home Medications Medication Instructions Recorded Confirmed Type Cholecalciferol (Vitamin D3) 1,000 unit PO DAILY 11/19/20 11/23/20 History [Vitamin D3 1,000 Unit Cap] Cholecalciferol (Vitamin D3) 1,250 mcg PO WEEKLY 11/19/20 11/23/20 History [Vitamin D3 50,000 unit Cap] Gabapentin 600 mg PO TID 11/19/20 11/23/20 History Hydrocod/Acet 5/325 mg [[place] 1 tab PO TID 11/19/20 11/23/20 History 5/325mg tablet] Allergies Allergy/AdvReac Type Severity Reaction Status Date / Time latex Allergy Intermediate Rash Verified 11/23/20 09:00 Exam Vital signs and Labs for Last 24 Hours: Temp Pulse Resp BP Pulse Ox 98.4 F 103 H 16 122/70 99 11/24/20 08:00 11/24/20 08:00 11/24/20 08:00 11/24/20 08:00 11/24/20 08:00 Laboratory Results - last 24 hr 11/23/20 10:40: Urine Color Yellow, Urine Appearance Clear, Urine pH 6.0, Ur Specific [place] 1.025, Urine Protein Negative, Urine Glucose (UA) Negative, Urine Ketones Negative, Urine Blood Trace-l, Urine Nitrate Negative, Urine Bilirubin Negative, Urine Urobilinogen 0.2, Ur Leukocyte Esterase Negative, Urine RBC 3-5, Urine WBC 3-5, Ur Squamous Epith Cells 3-5, Urine Bacteria 1+ 11/24/20 05:34: WBC 5.8, RBC 3.52 L D, Hgb 10.3 L, Hct 30.7 L, MCV 87.1, MCH 29.4, MCHC 33.7, RDW 13.6, Plt Count 224, MPV 8.1, Neut % (Auto) 64.0, Lymph % (Auto) 28.0, [place] % (Auto) 6.7, Eos % (Auto) 1.0, Baso % (Auto) 0.3, Neut # (Auto) 3.7
--- NOTE | 2020-11-24 11:04 | HMH.OTEV ---
OT Inpatient Evaluation Rehab OT IP Evaluation Start: 11/23/20 16:04 Freq: ONCE Status: Complete Protocol: Document 11/24/20 10:59 [facility] (Rec: 11/24/20 11:03 [facility] [id number]) Rehab OT IP Assessment Subjective History Pt oriented x 3 on arrival for evaluation. Pt had a L total hip arthroplasty on 11/23/20. Pt has a past medical history of GERD, Hyperlipidemia, HTN, and Seizures. Pt claims prior to surgery she lived at home alone. She did report two of her sons would stay with her ever now and then . Pt claims she was completely independent with all ADLs and IADL's. Pt would use a cane or walker when needed due to hip/knee pain. Subjective I hope this helps. Objective Patient Orientation Person,Place,Birthday Upper Extremity Gross ROM WFL Bed Mobility bed mobility-scooting,bed mobility - supine/sit,bed mobility - rolling Assist Level Moderate x 1 (50% assist) Transfer Training Sit/Stand Transfer Assist Level Moderate x 2 (50% assist) Rehab OT IP prob,goals,plan Problems Date of Evaluation: 11/24/20 OT IP Problems Bed Mobility,Transfers,Gait, Balance,Self care,Safety Rehab Potential Rehab Potential Good Equipment Needs Assistive Devices Rolling / Wheeled Walker Plan OT intervention Plan Bed Mobility,Transfers,Gait, Balance,Self care,Safety, Therapeutic Exercise OT Plan Frequency BID Duration LOS Discharge Goals Bed Mobility Ability Assistance x1 Sit to Stand Chair Transfer Ability Minimal x 1 (25% assist) Chair Transfer Ability Minimal x 1 (25% assist) Chair Transfer Technique Sit to/from Ambulatory Chair Transfer Assistive Devices Rolling Walker Feeding Ability Independent Lower Body Dressing Ability Assistance X1 Upper Body Dressing Ability Standby Assistance Bathing Ability Assistance x1 Performing Toilet Hygiene Ability Standby Assistance Overall Commode/Toilet Transfer Ability Assistance x1 Commode/Toilet Transfer Technique Sit to/from Ambulatory Discharge Plan OT Discharge Plan Pt reports concern about retu
--- NOTE | 2020-11-24 12:55 | HMH.ANESII ---
[facility] Anesthesia Record Part II Discharge Time: 15:50 Destination: Medical Surgical Department PACU nurse assessment reviewed?: Yes Patient Condition:: Good Anesthesia Complications:: None Swallowing reflex intact?: Yes Cyanosis?: No Blood Pressure: 122/76 Pulse Rate: 68 Temperature: 97.5 F Mental Status: Alert & Oriented Pain level:: 0 Nausea and/or vomitting:: None Intake, IV Amount: 0
--- NOTE | 2020-11-24 13:16 | HMH.ORTHPN ---
Subjective Date: 11/24/20 Time: 12:00 Principal diagnosis: S/p total hip arthroplasty, left Interval history: Patient is status post LEFT total hip arthroplasty post op day #1. Patient is lying down in the bed; says she is doing well and reports no problems. Patient has minimal pain and says it's well-controlled with medication. No history of any nausea or vomiting. No history of any cough, chest pain, shortness of breath or palpitations. Patient says she is eating and drinking well. No history of any distal tingling or numbness. She reports having some numbness and pain in her right arm after surgery but this has since resolved. PN: Obj Ex Vital signs: Temp Pulse Resp BP Pulse Ox 97.5 F L 68 17 122/76 97 11/24/20 12:56 11/24/20 12:56 11/24/20 12:38 11/24/20 12:56 11/24/20 12:38 Narrative: Laboratory Results - last 24 hr 11/23/20 10:40: Urine Color Yellow, Urine Appearance Clear, Urine pH 6.0, Ur Specific [place] 1.025, Urine Protein Negative, Urine Glucose (UA) Negative, Urine Ketones Negative, Urine Blood Trace-l, Urine Nitrate Negative, Urine Bilirubin Negative, Urine Urobilinogen 0.2, Ur Leukocyte Esterase Negative, Urine RBC 3-5, Urine WBC 3-5, Ur Squamous Epith Cells 3-5, Urine Bacteria 1+ 11/24/20 05:34: WBC 5.8, RBC 3.52 L D, Hgb 10.3 L, Hct 30.7 L, MCV 87.1, MCH 29.4, MCHC 33.7, RDW 13.6, Plt Count 224, MPV 8.1, Neut % (Auto) 64.0, Lymph % (Auto) 28.0, [place] % (Auto) 6.7, Eos % (Auto) 1.0, Baso % (Auto) 0.3, Neut # (Auto) 3.7, Lymph # (Auto) 1.6, [place] # (Auto) 0.4, Eos # (Auto) 0.1, Baso # (Auto) 0.0 11/24/20 05:34: Sodium 136, Potassium 3.6, Chloride 108 H, Carbon Dioxide 27, Anion Gap 4.6 L, BUN 13, Creatinine 0.60, Estimated Creat Clear 68, Estimated GFR 102, Est GFR ( Amer) 123, Glucose 104 H, Calcium 8.3 L D Intake & Output 11/22/20 11/23/20 11/24/20 11/25/20 11:59 11:59 11:59 11:59 Intake Total 3220 / 3220 840 / 840 Output Total 3800 / 3800 Balance -580 / -580 840 / 840 Weight 161 lb Exam General appearance: alert, active, awake, no acute distress Cardiovascular: regular rate & rhythm, normal peripheral pulses Respiratory: No respiratory distress noted, speaks in full sentences ABD: soft and non tender Neuro: alert, awake, oriented x 3 Psych: normal mood and affect Genitourinary: Catheter in situ. On examination of the lower extremities the limb lengths are equal. Thigh and calf are soft and nontender. On examination of the LEFT hip the dressings are clean, dry and intact. No bleeding, soakage or strikethrough noted. Distal pulses are 2+. Distal sensation is intact to light touch throughout. No motor deficits noted distally. On examination of her right upper extremity, she has full range of pain-free movements. Distal neurovascular status is intact. - Urinary Catheter Management Adams Cath placed during this visit: no Progress Note: A&P (1) Primary osteoarthritis of left hip Status: Acute (2) S/P total hip arthroplasty Status: Acute Assessment and Plan for All Diagnoses:: I have reviewed the clinical findings and progress with the patient. Patient is doing well and reports no problems. Patient is mobilizing well weightbearing as tolerated on the LEFT side with the walker and to continue the same. Continue DVT prophylaxis. Continue abduction pillow when in bed and continue standard precautions for the posterior approach hip replacement. Discontinue IV fluids. Discontinue the urinary catheter. Case management looking into discharge planning.
--- NOTE | 2020-11-24 16:14 | PC.NURSE ---
Addendum entered by Anni Zacarias RN 11/24/20 19:16: aware of blood culture results. Original Note: PT IS A&OX4. SHE HAS C/O PAIN X1 THIS SHIFT, MEDICATION ADMIN PER MAR WITH FAVORABLE RELIEF. SHE IS ON RA. SHE SAT IN CHAIR FOR APPROX. 1 HOUR TODAY. SHE IS A X1 ASSIST WITH A WALKER TO BED/CHAIR. ABDUCTOR PILLOW IN PLACE WHEN IN BED. GREY REMOVED PER MD PAGE ORDER AND IVF DC/D PER HIS ORDER. CALL LIGHT WITHIN REACH, VSS. WILL CONT. TO MONITOR.
--- NOTE | 2020-11-24 19:17 | PC.NURSE ---
PT IS A&OX4. SHE HAS C/O PAIN X1 THIS SHIFT, MEDICATION ADMIN PER MAR WITH FAVORABLE RELIEF. SHE IS ON RA. SHE SAT IN CHAIR FOR APPROX. 1 HOUR TODAY. SHE IS A X1 ASSIST WITH A WALKER TO BED/CHAIR. ABDUCTOR PILLOW IN PLACE WHEN IN BED. GREY REMOVED PER MD PAGE ORDER AND IVF DC/D PER HIS ORDER. CALL LIGHT WITHIN REACH, VSS. WILL CONT. TO MONITOR.
[2020-11-25] VITALS (8 sets, daily range): BP systolic 96–154; BP diastolic 51–80; PULSE 85–105; RESP 15–20; TEMP 36.4–37.2; O2SAT 98–100; BMI 32.8
--- NOTE | 2020-11-25 04:18 | PC.NURSE ---
pt stated pain to left hip prn med given per order. abductor pillow in place while in bed. assist to bsc. vss. alert and oriented. call light in reach. pt slept most of shift. will continue to monitor
[2020-11-25 07:41] LABS: Basophils % 0.4 % (0.1-2.0); Eosinophils # 0.1 K/mm3 (0.0-0.4); Eosinophils % 1.3 % (0.1-12.0); Hematocrit 31.3 % (37.0-47.0); Hemoglobin 10.2 g/dL (12.2-16.2); Lymphocytes # 2.1 K/mm3 (0.7-4.5); Lymphocytes % 24.6 % (10-50); Mean Corpuscular HGB Conc 32.7 g/dL (31.8-35.4); Mean Corpuscular Hemoglobin 28.8 pg (27.0-31.2); Mean Corpuscular Volume 88.1 fl (81-99); Monocytes # 0.6 K/mm3 (0.1-1.0); Monocytes % 6.5 % (1.7-9.3); Neutrophils # 5.8 K/mm3 (1.8-7.8); Neutrophils % 67.1 % (37.0-80.0); Platelet Count 235 K/mm3 (142-424); Red Blood Count 3.55 M/mm3 (4.20-5.40); Red Cell Distribution Width 13.6 % (11.5-17.5); White Blood Count 8.6 K/mm3 (4.8-10.8)
[2020-11-25 07:48] LABS: Anion Gap 5.2 mEq/L (5-15); Blood Urea Nitrogen 14 mg/dl (7-17); Calcium 8.4 mg/dl (8.4-10.2); Carbon Dioxide 29 mmol/L (22.0-30.0); Chloride 108 mmol/L (98-107); Creatinine Clearance Estimated 76 mL/min (50-200); Estimated Glomerular Filt Rate 102 ml/min (>60); GFR (African American) 123 ML/MIN (>60); Glucose 98 mg/dl (74-100); Potassium 3.2 mmoL/L (3.5-5.1); Sodium 139 mmol/L (136-145)
--- NOTE | 2020-11-25 09:00 | HMH.CONFU ---
Internal Medicine - PN: Subj *Date: 11/25/20 *Time: 09:14 Interval history: 60-year-old female patient sitting up in bed, she reports she did have some increased pain during the night, explained to patient to ask for pain medicine when pain begins and not wait until very intense. Thank you for involving medicine team in the care of this patient Exam Vital signs and Labs for Last 24 Hours: Temp Pulse Resp BP Pulse Ox 97.5 F L 89 16 99/51 L 100 11/25/20 07:43 11/25/20 07:43 11/25/20 07:43 11/25/20 07:43 11/25/20 07:43 Laboratory Results - last 24 hr 11/25/20 07:19: WBC 8.6 D, RBC 3.55 L, Hgb 10.2 L, Hct 31.3 L, MCV 88.1, MCH 28.8, MCHC 32.7, RDW 13.6, Plt Count 235, MPV 8.0, Neut % (Auto) 67.1, Lymph % (Auto) 24.6, [place] % (Auto) 6.5, Eos % (Auto) 1.3, Baso % (Auto) 0.4, Neut # (Auto) 5.8, Lymph # (Auto) 2.1, [place] # (Auto) 0.6, Eos # (Auto) 0.1, Baso # (Auto) 0.0 11/25/20 07:19: Sodium 139, Potassium 3.2 L, Chloride 108 H, Carbon Dioxide 29, Anion Gap 5.2, BUN 14, Creatinine 0.60, Estimated Creat Clear 76, Estimated GFR 102, Est GFR ( Amer) 123, Glucose 98, Calcium 8.4 I & O for Last 24 hours: Intake & Output 11/22/20 11/23/20 11/24/20 11/25/20 23:59 23:59 23:59 23:59 Intake Total 2500 / 2500 2400 / 2520 500 / 500 Output Total 4550 / 4550 Balance 2500 / 1500 -2150 / -2029 500 / 500 Weight 161 lb 178 lb 9 oz - Constitutional no acute distress - *Routine HEENT Exam Head: Present: normocephalic Eye: Present: EOMI ENT: Present: mucous membranes moist - *Routine Neck Exam Present: supple, trachea midline. Absent: tracheal deviation - *Routine Respiratory Exam Present: CTA bilaterally. Absent: accessory muscle use - *Routine Cardiovascular Exam Present: RRR - *Routine Abdominal Exam Present: soft, normoactive bowel sounds. Absent: tenderness, rigid - *Routine Extremities Exam Present: pulses intact, tenderness. Absent: cyanosis, edema, calf tenderness - *Routine Skin Exam Present: dry, warm, wounds. Absent: intact, cyanosis Comments: Skin clean dry and intact left hip - *Routine Neurological Exam Present: alert, oriented X3. Absent: sensory deficit, pronator drift, altered mental status - Routine Psychiatric Exam Present: normal affect, normal thought process. Absent: auditory hallucinations, visual hallucinations Assessment and Plan (1) Primary osteoarthritis of left hip Status: Acute Category: Medical Code(s): M16.12 - Unilateral primary osteoarthritis, left hip (2) S/P total hip arthroplasty Status: Acute Qualifiers: Laterality: left Qualified Code(s): Z96.642 - Presence of left artificial hip joint Category: Surgical Code(s): Z96.649 - Presence of unspecified artificial hip joint - Assessment and plan all Dx Assessment and Plan for all problems:: Rounded with Dr. Newton, all orders per Dr. Newton: 1. Would recommend Xarelto for anticoagulation 2. Patient is agreeable to rehab and primary care agrees
--- NOTE | 2020-11-25 16:37 | P.PN_ITS ---
Subjective Date: 11/25/20 Time: 16:30 Principal diagnosis: S/p total hip arthroplasty, left Interval history: Patient is status post LEFT total hip arthroplasty post op day #2. Patient is lying down on the bed and says she is doing well; she reports no problems. Patient has minimal pain and says it's well-controlled with medication. No history of any nausea or vomiting. No history of any cough, chest pain, shortness of breath or palpitations. Patient says she is eating and drinking well. No history of any distal tingling or numbness. PN: Obj Ex Vital signs: Temp Pulse Resp BP Pulse Ox 98.3 F 85 18 96/62 L 99 11/25/20 11:40 11/25/20 11:40 11/25/20 11:40 11/25/20 11:40 11/25/20 11:40 Narrative: Laboratory Results - last 24 hr 11/25/20 07:19: WBC 8.6 D, RBC 3.55 L, Hgb 10.2 L, Hct 31.3 L, MCV 88.1, MCH 28.8, MCHC 32.7, RDW 13.6, Plt Count 235, MPV 8.0, Neut % (Auto) 67.1, Lymph % (Auto) 24.6, [place] % (Auto) 6.5, Eos % (Auto) 1.3, Baso % (Auto) 0.4, Neut # (Auto) 5.8, Lymph # (Auto) 2.1, [place] # (Auto) 0.6, Eos # (Auto) 0.1, Baso # (Auto) 0.0 11/25/20 07:19: Sodium 139, Potassium 3.2 L, Chloride 108 H, Carbon Dioxide 29, Anion Gap 5.2, BUN 14, Creatinine 0.60, Estimated Creat Clear 76, Estimated GFR 102, Est GFR ( Amer) 123, Glucose 98, Calcium 8.4 Intake & Output 11/23/20 11/24/20 11/25/20 11/26/20 11:59 11:59 11:59 11:59 Intake Total 3220 / 3220 2180 / 2180 240 / 240 Output Total 3800 / 3800 750 / 750 Balance -580 / -580 1430 / 1430 240 / 240 Weight 161 lb 178 lb 9 oz Exam General appearance: alert, active, awake, no acute distress Cardiovascular: regular rate & rhythm, normal peripheral pulses Respiratory: No respiratory distress noted, speaks in full sentences ABD: soft and non tender Neuro: alert, awake, oriented x 3 Psych: normal mood and affect On examination of the lower extremities the limb lengths are equal. Thigh and calf are soft and nontender. On examination of the LEFT hip the dressings are clean, dry and intact. The dressings are changed by me. There is no soakage of the dressings. The incision looks clean and healthy. No evidence of any infection or other complications is noted. Distal pulses are 2+. Distal sensation is intact to light touch throughout. No motor deficits noted distally. - Urinary Catheter Management Adams Cath placed during this visit: no Progress Note: A&P (1) Primary osteoarthritis of left hip Status: Acute (2) S/P total hip arthroplasty Status: Acute Assessment and Plan for All Diagnoses:: I have reviewed the clinical findings and progress with the patient. Patient is doing well and reports no problems. Patient is mobilizing well weightbearing as tolerated on the LEFT side with a walker and to continue the same. Continue DVT prophylaxis. Continue abduction pillow when in bed and continue standard precau tions for the posterior approach hip replacement. Case management looking into discharge planning. Follow-up in my office in 2 weeks? time with check x-ray. Please feel free to call our office at [phone] for any orthopaedic questions. Continue medical management as per Dr. Newton.
--- NOTE | 2020-11-25 17:29 | PC.NURSE ---
it was noted this am to have redness to bottom and a dressing was placed for further protection, pt removed dressing from her bottom. pt took self to bathroom after being educated on the importance of asking for assistance d/t being weak post surgery, pt refused to let staff put a new dressing on, has refused to let staff turn her in bed, has refused to let staff pull her up in bed, she insist she does it herself even after being educated by multiple nurses about shearing and causing breakdown to her bottom. she refused to let staff take a photo of her buttocks to show the redness. Nette Payan rn and Jayna Pretty rn was present. otherwise, pt is A7Ox4, has c/o pain x2 this shift, states adequate relief when reassessed. has had abductor pillow in place t/o shift. does well when ambulating with staff and walker to bathroom.
--- NOTE | 2020-11-26 02:30 | PC.NURSE ---
No acute changes overnight. Pt A&O x4. Pt has c/o incisional pain, norco given per mar with desired effects. Lugns CTA, on room air. Pt able to ambulate with standby assist and walker to bathroom. Incision on left hip CDI. Bowel sounds x4, no BM this shift. IV patent, SL. VSS, call light in reach. no concerns at this time.
[2020-11-26 03:34] VITALS: BP 93/55; PULSE 90; RESP 16; TEMP 36.9; O2SAT 98
[2020-11-26 04:43] VITALS: BMI 33.3
[2020-11-26 07:53] VITALS: BP 134/93; PULSE 118; RESP 20; TEMP 37.1; O2SAT 98
--- NOTE | 2020-11-26 12:17 | HMH.ACPN2 ---
Internal Medicine - PN: Subj *Date: 11/26/20 *Time: 08:10 Interval history: pt seen this am. pt states she is getting oob and doing well. pt states she has two open areas to buttocks. Exam Vital signs and Labs for Last 24 Hours: Temp Pulse Resp BP Pulse Ox 98.7 F 118 H 20 134/93 H 98 11/26/20 07:53 11/26/20 07:53 11/26/20 07:53 11/26/20 07:53 11/26/20 07:53 I & O for Last 24 hours: Intake & Output 11/24/20 11/25/20 11/26/20 11/27/20 11:59 11:59 11:59 11:59 Intake Total 3220 / 3220 2180 / 2180 960 / 960 Output Total 3800 / 3800 750 / 750 450 / 450 Balance -580 / -580 1430 / 1430 510 / 510 Weight 178 lb 9 oz 181 lb 3 oz - Constitutional no acute distress - *Routine HEENT Exam Head: Present: normocephalic Eye: Present: PERRL ENT: Present: mucous membranes moist - *Routine Neck Exam Present: supple. Absent: lymphadenopathy - *Routine Respiratory Exam Present: CTA bilaterally - *Routine Cardiovascular Exam Present: RRR - *Routine Abdominal Exam Present: soft, normoactive bowel sounds. Absent: tenderness - *Routine Extremities Exam Present: normal capillary refill. Absent: cyanosis, clubbing, edema - *Routine Skin Exam Present: warm. Absent: rash Comments: dressing to left hip c/d/i two small open areas with dark lines on coccyx - *Routine Neurological Exam Present: alert, oriented X3 - Routine Psychiatric Exam Present: normal affect Assessment and Plan (1) Primary osteoarthritis of left hip Status: Acute Category: Medical Code(s): M16.12 - Unilateral primary osteoarthritis, left hip (2) S/P total hip arthroplasty Status: Acute Qualifiers: Laterality: left Qualified Code(s): Z96.642 - Presence of left artificial hip joint Category: Surgical Code(s): Z96.649 - Presence of unspecified artificial hip joint (3) Stage II decubitus ulcer Status: Acute Qualifiers: Pressure injury location: sacral region Qualified Code(s): L89.152 - Pressure ulcer of sacral region, stage 2 Category: Medical Code(s): L89.92 - Pressure ulcer of unspecified site, stage 2 - Assessment and plan all Dx Assessment and Plan for all problems:: rounded with dr ontiveros all orders per dr ontiveros apply polymen to buttocks turn q2 ok to dc when ready
--- NOTE | 2020-11-26 12:25 | HMH.DCSUM ---
General - General Admission date:: 11/23/20 Discharge date: 11/27/20 [facility] HPI: Patient is a 60-year-old female with advanced degenerative arthritis of both hip joints unresponsive to conservative management. Patient was admitted to hospital following an uncomplicated primary left total hip arthroplasty on 11/23/2020. She has been having worsening pain in both her hip joints for several years and the condition has gradually gotten worse. Her left side is more symptomatic than the right. She states that over the last few months, her pain has gradually gotten worse. She localizes the pain to anterior and posterior aspect of the hip joints with radiation into the upper thigh and both knee joints. All the symptoms are worse on the left side. She reports that she has constant pain and rates that a 6 out of 10 at rest and a 10 out of 10 at its worst. She states standing, sitting and walking aggravates her pain. She has tried over the counter arthritis medication, heat and rest with no relief. She also reports severe stiffness of both hip joints. Her walking ability is severely limited and she cannot walk even few feet without pain. She uses a cane to walk with and has severe limp. All her activities of daily living and walking are severely limited because of the hip pain and stiffness. She also reports night pain and sleep disturbance on a daily basis. Her left hip gives out and she is at risk of falls. No history of any distal tingling or numbness. She reports some low back pain without radicular symptoms as well as bilateral hip pain. She reports no improvement with physical therapy. No history of any previous hip injections or surgery. No history of any previous significant hip injuries. She is retired, lives with her son and does not work. Her medical history includes hypertension, hyperlipidemia, GERD and osteopenia. She is a non-smoker. Evaluation including clinical examination, x-rays and CT scan are consistent with severe degenerative arthritis of the left hip. A left total hip arthroplasty is indicated to reduce the risk of falls, improve her pain, mobility and quality of life. The surgical and nonsurgical alternatives were discussed in detail with the patient as well as the risks and benefits of the surgery. Please refer to my office note for full details. Hospital Course Hospital Course: Following uncomplicated primary total hip arthroplasty, patient was admitted to the inpatient service and has progressed well. The postoperative check x-ray was satisfactory with good alignment and fixation of the components. Patient was advised to ambulate weightbearing as tolerated on the LEFT side. Patient managed this very well using the walker. Her pain is well controlled with oral analgesics. The surgical incision is clean and dry without any active discharge or signs of infection. Distal neurovascular status is intact. No clinical evidence of DVT. Patient is eating and drinking well without any problems. Patient is medically stable at the time of discharge and was medically cleared for discharge by Dr. Dumas. Patient was also cleared for discharge by physical therapy. The dressings were changed on the second postoperative day and the wound is healthy and healing well. No signs of any erythema, induration or discharge. Patient was started on Xarelto 10 mg daily for DVT prophylaxis after surgery. On the day of discharge, the wound is clean and dry. The patient's vital signs have been stable throughout and patient is afebrile at the time of discharge. She is being discharged to a residential facility for postoperative rehab. Condition at discharge: improved and stable. Treatments and Procedures: Total hip arthroplasty, left hip; date of surgery 11/23/2020. Objective Vital signs: Temp Pulse Resp BP Pulse Ox 98.7 F 118 H 20 134/93 H 98 11/26/20 07:53 11/26/20 07:53 11/26/20 07:53 11/26/20 07:53 11/26/20 07:53 no acute dist
--- NOTE | 2020-11-26 13:12 | P.PN_ITS ---
Subjective Date: 11/26/20 Time: 12:30 Principal diagnosis: S/p total hip arthroplasty, left Interval history: Patient is status post LEFT total hip arthroplasty post op day #3. Patient is lying down on the bed and says she is doing well. Patient has minimal pain and says it's well-controlled with medication. No history of any nausea or vomiting. No history of any cough, chest pain, shortness of breath or palpitations. Patient says she is eating and drinking well. No history of any distal tingling or numbness. She still awaiting acceptance by SNF for rehab. PN: Obj Ex Vital signs: Temp Pulse Resp BP Pulse Ox 98.7 F 118 H 20 134/93 H 98 11/26/20 07:53 11/26/20 07:53 11/26/20 07:53 11/26/20 07:53 11/26/20 07:53 Narrative: Exam General appearance: alert, active, awake, no acute distress Cardiovascular: regular rate & rhythm, normal peripheral pulses Respiratory: No respiratory distress noted, speaks in full sentences ABD: soft and non tender Neuro: alert, awake, oriented x 3 Psych: normal mood and affect On examination of the lower extremities the limb lengths are equal. Thigh and calf are soft and nontender. On examination of the LEFT hip the dressings are cl prisca, dry and intact. She has early stage pressure ulceration over the sacral area. Distal pulses are 2+. Distal sensation is intact to light touch throughout. No motor deficits noted distally. - Urinary Catheter Management Adams Cath placed during this visit: no Progress Note: A&P (1) Primary osteoarthritis of left hip Status: Acute (2) S/P total hip arthroplasty Status: Acute (3) Stage II decubitus ulcer Status: Acute Assessment and Plan for All Diagnoses:: I have reviewed the clinical findings and progress with the patient. Patient is doing well and reports no problems. Patient is mobilizing well weightbearing as tolerated on the LEFT side with the walker and to continue the same. Continue DVT prophylaxis. Continue abduction pillow when in bed and continue standard precautions for the posterior approach hip replacement. Protect the sacral area with appropriate dressing and turning the patient frequently. Case management looking into discharge planning-still awaiting insurance approval for transfer to a assisted facility. Recommend DVT prophylaxis for 6 weeks postop. Follow-up in my office in 2 weeks? time with check x-ray. Please feel free to c all our office at [phone] for any orthopaedic questions. Medical management as per Dr. Newton/Dr. Daugherty.
[2020-11-26 15:47] VITALS: BP 135/82; PULSE 105; RESP 18; TEMP 36.8; O2SAT 97
--- NOTE | 2020-11-26 19:53 | PC.NURSE ---
Pt alert and oriented and able to make needs known. RR even and unlabored. Meds given per sep. Have encouraged pt to rotate off coccyx and encouraged a pressure dsg on coccyx. Pt has refused and says she wants to leave coccyx madhu. Redness noted to coccyx. Have called and made Dr. Newton's office aware so he can look at as well. VSS. Lungs cta, s1,s2,bs x 4. Educated pt on abductor pillow, while in bed,verbs understanding. CB in reach.
[2020-11-26 19:57] VITALS: RESP 18
[2020-11-26 20:00] VITALS: BP 138/75; PULSE 114; RESP 16; TEMP 36.8; O2SAT 99
[2020-11-26 23:20] VITALS: RESP 17
[2020-11-27 01:44] VITALS: RESP 18
[2020-11-27 04:00] VITALS: BP 133/67; PULSE 105; RESP 16; TEMP 36.8; O2SAT 100
--- NOTE | 2020-11-27 04:40 | PC.NURSE ---
Pt oriented times 4. Difficult for patient to control pain this shift. At beginning of shift she stated That girl just kept moving my legs so rough and was found in tears due to throbbing pain in LLE. Gave pain Rx x 3 throughout this shift. Patient has not called out since 0200 for pain medicine and is resting comfortably with eyes closed. Patient has redness to sacral and coccyx area. Patient refused to apply a mepilex to bottom. Patient has been alternating sleeping Right and left side this shift, will continue to monitor for any acute changes.
[2020-11-27 05:38] VITALS: BMI 32.4
[2020-11-27 08:00] VITALS: BP 148/75; PULSE 95; RESP 16; TEMP 37.3; O2SAT 98
--- NOTE | 2020-11-27 10:00 | P.PN_ITS ---
Internal Medicine - PN: Subj *Date: 11/27/20 *Time: 08:00 Interval history: pt states she had to take morphine due to pain. pt states she is doing well, walking in room and sitting up in chair Exam Vital signs and Labs for Last 24 Hours: Temp Pulse Resp BP Pulse Ox 99.2 F 95 H 16 148/75 H 98 11/27/20 08:00 11/27/20 08:00 11/27/20 08:00 11/27/20 08:00 11/27/20 08:00 I & O for Last 24 hours: Intake & Output 11/24/20 11/25/20 11/26/20 11/27/20 11:59 11:59 11:59 11:59 Intake Total 3220 / 3220 2180 / 2180 960 / 960 1505 / 1505 Output Total 3800 / 3800 750 / 750 450 / 450 1000 / 1000 Balance -580 / -580 1430 / 1430 510 / 510 505 / 505 Weight 178 lb 9 oz 181 lb 3 oz 176 lb 4 oz - Constitutional no acute distress - *Routine HEENT Exam Head: Present: normocephalic Eye: Present: PERRL ENT: Present: mucous membranes moist - *Routine Neck Exam Present: supple. Absent: lymphadenopathy - *Routine Respiratory Exam Present: CTA bilaterally - *Routine Cardiovascular Exam Present: RRR - *Routine Abdominal Exam Present: soft, normoactive bowel sounds. Absent: tenderness - *Routine Extremities Exam Absent: cyanosis, clubbing, edema - *Routine Skin Exam Present: warm. Absent: rash Comments: dressing to left hip c/d/i 2 small stage 2 on coccyx with purple streaks - *Routine Neurological Exam Present: alert, oriented X3 - Routine Psychiatric Exam Present: normal affect Assessment and Plan (1) Primary osteoarthritis of left hip Status: Acute Category: Medical Code(s): M16.12 - Unilateral primary osteoarthritis, left hip (2) S/P total hip arthroplasty Status: Acute Qualifiers: Laterality: left Qualified Code(s): Z96.642 - Presence of left artificial hip joint Category: Surgical Code(s): Z96.649 - Presence of unspecified artificial hip j oint - Assessment and plan all Dx Assessment and Plan for all problems:: waiting for ltc placement
--- NOTE | 2020-11-27 14:17 | HMH.ORTHPN ---
Subjective Date: 11/27/20 Time: 14:15 Principal diagnosis: S/p total hip arthroplasty, left Interval history: Patient is status post LEFT total hip arthroplasty post op day #4. Patient is sitting up on the bed; says she is doing well [place]. She reports some pain and says it's well-controlled with as needed pain medication. No history of any nausea or vomiting. No history of any cough, chest pain, shortness of breath or palpitations. Patient says she is eating and drinking well. No history of any distal tingling or numbness. PN: Obj Ex Vital signs: Temp Pulse Resp BP Pulse Ox 99.2 F 95 H 16 148/75 H 98 11/27/20 08:00 11/27/20 08:00 11/27/20 08:00 11/27/20 08:00 11/27/20 08:00 Narrative: Exam General appearance: alert, active, awake, no acute distress Cardiovascular: regular rate & rhythm, normal peripheral pulses Respiratory: No respiratory distress noted, speaks in full sentences ABD: soft and non tender Neuro: alert, awake, oriented x 3 Psych: normal mood and affect On examination of the lower extremities the limb lengths are equal. Thigh and calf are soft and nontender. On examination of the LEFT hip the dressings are clean, dry and intact. Distal pulses are 2+. Distal sensation is intact to light touch throughout. No motor deficits noted distally. Patient has a sacral decubitus ulcer which is protected with dressing. - Urinary Catheter Management Adams Cath placed during this visit: no Progress Note: A&P (1) Primary osteoarthritis of left hip Status: Acute (2) S/P total hip arthroplasty Status: Acute Assessment and Plan for All Diagnoses:: I have reviewed the clinical findings and progress with the patient. Patient is doing well without any major problems. Patient is mobilizing well weightbearing as tolerated on the LEFT side with the walker and to continue the same. Continue DVT prophylaxis. Continue abduction pillow when in bed and continue standard precautions for the posterior approach hip replacement. Patient is approved for transfer to [facility] for rehab. Follow-up in my office in 10 days? time with check x-ray. Please feel free to call our office at [phone] for any orthopaedic questions. Continue medical management as per Dr. Newton.
--- NOTE | 2020-11-27 16:14 | PC.NURSE ---
THIS RN PLACED 4X4 POLYMER ON PATIENT'S COCCYX AREA DUE TO STAGE II ULCER. THIS RN PROVIDED D/C INSTRUCTIONS AND WOUND CARE TO [facility] AT [facility], NO QUESTIONS ASKED.
== END 2020-11-27 15:20 ==
LOC: 2ND 08:37 → OB 15:51 → ICU 11-24 01:00 → 2ND 11-24 14:49
PROVIDERS: Admitting Provider Orthopaedic Surgery; PCP Emergency Medicine; Visit Provider Orthopaedic Surgery
PROC: (CPT 27130; principal; 2020-11-23 10:30)
DX: M16.12 Unilateral primary osteoarthritis, left hip (principal); I10 Essential (primary) hypertension; E78.5 Hyperlipidemia, unspecified; Z79.899 Other long term (current) drug therapy; L89.152 Pressure ulcer of sacral region, stage 2
CPT/HCPCS: 27130; 36415; 71045; 73502; 80048; 81001; 85025; 86328; 93005; 94761; 96374; 97116; 97161; 97166; 97530; 97535; C1713; C1776; G0283; G0378; J3370; U0003

== ENCOUNTER 2020-11-29 11:23 | Emergency (ER) | payer MEDICARE, BC, SELFPAY ==
[2020-11-29] VITALS (8 sets, daily range): BP systolic 104–139; BP diastolic 58–94; PULSE 78–115; RESP 16–22; TEMP 36.6–37; O2SAT 94–100; BMI 31.2
--- NOTE | 2020-11-29 11:44 | HMH.EDGENADL ---
ED Disposition Clinical Impression: Acute postoperative pain of left hip, Left leg swelling Disposition: Home, Self-Care Condition on Discharge: Good Additional Instructions: Percocet as prescribed for pain. Do not take [place] while taking Percocet. Dr. Mitchell's office will call you tomorrow to arrange follow-up. Additional instructions for CONTROLLED SUBSTANCES: You have been prescribed a medication that is a controlled substance. Controlled substances include pain medications known as opiates and sedative nerve medications known as benzodiazepines. Tramadol, fioricet, and gabapentin are also controlled substances. Some common opiates include: Codeine (such as Tylenol #3) Hydrocodone (Vicodin, Lortab, Lorcet, [place]) Oxycodone (Percocet, Percodan, Oxycodone, Oxy IR) Some common benzodiazepines include: Diazepam (Valium) Lorazepam (Ativan) Alprazolam (Xanax) Clonazepam (Klonopin) Oxazepam (Serax) All of these controlled substances are highly addictive and frequently abused. Misuse can and frequently does lead to addiction as well as overdose and . Medication should be stored in a locked cabinet or other secure storage unit. Do not store the medication in a motor vehicle. Short term supplies, 3 days or less, are prescribed because of the highly addictive nature of the medication. Any of the controlled substance medication NOT taken should be disposed of properly and NOT SAVED. The recommended method of disposing of unused medications is: Place the medicines in a sealable plastic bag. If the medicine is a solid, crush it or add water to dissolve it. Add something undesirable (cat litter, coffee grounds, etc.) Dispose of sealed bag in household trash Do not flush or pour unused medicines down a sink or drain. Controlled substances should not be shared, given away or sold. Because of the addictive nature and frequent abuse, these medications are sometimes stolen. These medications should be kept in a safe place where they cannot be stolen. Do not keep them in your car or purse. Lost or stolen prescriptions for controlled substances WILL NOT BE REFILLED in this emergency department, regardless of whether a police report was filed. Prescriptions: Oxycodone HCl/Acetaminophen [Percocet 5/325mg tablet] 1 tab PO Q6HP PRN #15 tab PRN Reason: Moderate To Severe Pain Transmission Status: Received by [id number] Referrals: Frank Newton MD [Primary Care Provider] - - Critical Care Critical Care Time: No Attestation: On 11/29/20, the high probability of a clinically significant, sudden or life threatening deterioration of the following system(s) required my full and direct attention, intervention and personal management. The time I documented below is in addition to time spent performing reported procedures but includes the following listed in this critical care notation. Medical Decision Making - Medical Records Medical records reviewed: Yes: I reviewed the patient's medical records. MR Comment: Reviewed operative report 11/23/2020, reviewed discharge summary - Azeem Inquiry Pt receiving controlled substance: Yes Azeem was queried for this patient: Yes Risks and benefits of using a controlled substance: were discussed with pt by me Vital Signs: 11/29/20 11:26 11/29/20 12:00 11/29/20 12:31 Temperature 98.6 F Temperature Source Oral Pulse Rate 110 H 99 H Pulse Rate [Radial] 115 H Respiratory Rate 22 Blood Pressure 131/94 H 104/58 L Blood Pressure [Right Arm] 139/68 Blood Pressure Mean 102 77 Blood Pressure Mean [Right Arm] 91 Blood Pressure Position [Right Arm] Sitting 02 Sat by Pulse Oximetry 98 98 99 Oxygen Delivery Method Room Air 11/29/20 13:00 11/29/20 13:30 11/29/20 14:00 Temperature Temperature Source Pulse Rate 92 H 101 H 96 H Pulse Rate [Radial] Respiratory Rate 18 Blood Pressure 126/73 132/74 132/72 Blood Pressure [Right
--- NOTE | 2020-11-29 12:23 | CA_ITS ---
APPROVED REPORT Bilateral Lower Extremity Venous Study for DVT. Steam Fitter: JANY Indications swelling L leg, recent Lt hip replacement 11/23/2020 Vein Imaging CFV (L): compressive, spontaneous, phasic, augmentation FEM (L): compressive, spontaneous, phasic, augmentation POP (L): compressive, spontaneous, phasic, augmentation DFV (L): compressive, spontaneous, phasic, augmentation PTV (L): compressive, spontaneous, phasic, augmentation GSV (L): compressive, spontaneous, phasic, augmentation Peroneals (L):compressive, spontaneous, phasic, augmentation GAS (L): compressive, spontaneous, phasic, augmentation Findings Negative for DVT at this time. Conclusion Negative for DVT Soft tissue edema. Electronically signed by : Hiral Mitchell, 12/02/2020 16:58:36
--- NOTE | 2020-11-29 12:26 | XR_ITS ---
PROCEDURE INFORMATION: Exam: XR Left Hip Exam date and time: 11/29/2020 12:26 PM Age: 60 years old Clinical indication: Hip pain; Prior surgery; Surgery date: 3-7 days post-operative; Surgery type: Left hip surgery on 11/23/2020, severe pain since having surgery. ; Additional info: Pain, recent hip replacement TECHNIQUE: Imaging protocol: XR Left hip. Views: 2 or 3 views hip with pelvis when performed. COMPARISON: CR XR HIP LT 2-3V W/PELVIS 11/23/2020 2:56 PM FINDINGS: Bones/joints: osseous structures of the pelvis are without an acute process. rami are intact. Sacroiliac joints without separation/diastases/fracture. Iliac bones without acute process. Degenerative changes within the visualized portions of the caudal aspect of the lumbar spine. Total hip arthroplasty on the left. No dislocation or acute fracture. No evidence of loosening. Severe degenerative changes within the right hip including joint space narrowing, bony sclerosis, osteophytosis and mild remodeling. Soft tissues: Unremarkable. IMPRESSION: 1. No acute process. 2. Total hip arthroplasty on the left. No dislocation or acute fracture. No evidence of loosening. 3. Severe degenerative changes within the right hip including joint space narrowing, bony sclerosis, osteophytosis and mild remodeling. Bone on bone appearance.
--- NOTE | 2020-11-29 12:28 | PC.NURSE ---
vascular called in for doppler
--- NOTE | 2020-11-29 13:55 | PC.NURSE ---
MD Jefferson paged per ER physician request.
--- NOTE | 2020-11-29 14:00 | PC.NURSE ---
dsging applied to lt hip, sacral dsging applied to coccyx
--- NOTE | 2020-11-29 14:19 | PC.NURSE ---
DENISE report given to
== END 2020-11-29 16:10 | disposition home or self-care (01) ==
PROVIDERS: Emergency Provider Emergency Medicine; PCP Emergency Medicine
DX: G89.18 Other acute postprocedural pain (principal); M16.12 Unilateral primary osteoarthritis, left hip; I10 Essential (primary) hypertension; K21.9 Gastro-esophageal reflux disease without esophagitis; E78.5 Hyperlipidemia, unspecified; Z91.040 Latex allergy status; Z79.899 Other long term (current) drug therapy
CPT/HCPCS: 73502; 93971; 99282

== ENCOUNTER → 2021-01-12 12:42 | Outpatient (CLI) | payer MEDICARE, BC, SELFPAY ==
--- NOTE | 2021-01-12 12:49 | XR_ITS ---
PROCEDURE: XR HIP LT 2-3V W/PELVIS CLINICAL INDICATION: sp LT TOTAL HIP sx 11/23/20 COMPARISON: CR XR HIP LT 2-3V W/PELVIS from 11/29/2020 FINDINGS: Total left hip prosthesis is present on the left with good alignment and no obvious orthopedic complication. No significant change. IMPRESSION: Good alignment status post total left hip prosthesis Dictated by: Scot Warner MD 01/12/2021 13:37 Scot Warner MD in [place] 01/12/2021 13:37
== END ==
PROVIDERS: PCP Emergency Medicine; Visit Provider Orthopaedic Surgery
DX: M25.552 Pain in left hip; Z96.642 Presence of left artificial hip joint
CPT/HCPCS: 73502

== ENCOUNTER → 2021-04-02 09:23 | Outpatient (CLI) | payer MEDICARE, BC, SELFPAY ==
--- NOTE | 2021-04-02 09:29 | XR_ITS ---
PROCEDURE: XR HIP RT 2-3V W/PELVIS CLINICAL INDICATION: right hip pain COMPARISON: CR XR HIP RT 2-3V W/PELVIS from 10/06/2020 CR XR HIP LT 2-3V W/PELVIS from 01/12/2021 FINDINGS: There is severe osteoarthritic changes of the right hip with subchondral cystic changes. There is loss of the hip joint space with osteophyte formation. These findings are similar compared to 10/06/2020. No fracture or dislocation. IMPRESSION: Severe osteoarthritis of the right hip with subchondral cystic changes Dictated by: Scot Warner MD 04/02/2021 14:55 Scot Warner MD in [place] 04/02/2021 14:55
--- NOTE | 2021-04-02 09:29 | XR_ITS ---
PROCEDURE: XR HAND RT MIN 3V CLINICAL INDICATION: right hand pain COMPARISON: No exams were available for comparison FINDINGS: No fracture or dislocation. No lytic or blastic change. There is normal mineralization. Osteoarthritic changes are present involving the 1st metacarpal-carpal joint. The 1st interphalangeal joint, the DIP and PIP joints of digits 4 through. No erosive change. No fracture or dislocation. Other findings:None. IMPRESSION: Mild osteoarthritis Dictated by: Scot Warner MD 04/02/2021 14:57 Scot Warner MD in [place] 04/02/2021 14:57
--- NOTE | 2021-04-02 09:29 | XR_ITS ---
PROCEDURE: XR HIP LT 2-3V W/PELVIS CLINICAL INDICATION: left total hip COMPARISON: CR XR HIP LT 2-3V W/PELVIS from 01/12/2021 CR XR HIP RT 2-3V W/PELVIS from 04/02/2021 FINDINGS: Total left hip prosthesis is in place. There is good alignment with no significant change. No evidence of orthopedic hardware malfunction. IMPRESSION: Good alignment status post total left hip prosthesis placement Dictated by: Scot Warner MD 04/02/2021 14:59 Scot Warner MD in [place] 04/02/2021 14:59
== END ==
PROVIDERS: PCP Emergency Medicine; Visit Provider Orthopaedic Surgery
DX: M25.551 Pain in right hip (principal); M79.641 Pain in right hand; Z96.641 Presence of right artificial hip joint
CPT/HCPCS: 73130; 73502

== ENCOUNTER 2021-04-02 11:15 | Outpatient (RCR) | payer MEDICARE, BC, SELFPAY | END 2021-04-02 11:57 | disposition home or self-care (01) | LOC: OT 11:15 | PROVIDERS: Visit Provider Orthopaedic Surgery | DX: G56.01 Carpal tunnel syndrome, right upper limb (principal) | CPT/HCPCS: 97763 ==

== ENCOUNTER → 2021-06-29 08:58 | Outpatient (CLI) | payer MEDICARE, BC, MEDICAID, SELFPAY ==
--- NOTE | 2021-06-29 09:11 | XR_ITS ---
PROCEDURE: XR WRIST LT MIN 3V CLINICAL INDICATION: left wrist pain/CTS COMPARISON: CR XR WRIST RT MIN 3V from 06/29/2021 FINDINGS: No fracture or dislocation. No significant arthritic change. There is a well-circumscribed lucency involving the lunate measuring 4 mm consistent with a benign-appearing cyst. Along the dorsal aspect of the wrist at the distal carpal region there appears to be a small bony exostosis. IMPRESSION: No acute finding. 4 mm cystic lesion of the lunate. Mild bony hypertrophy along the dorsal aspect of the wrist distally Dictated by: Scot Warner MD 06/29/2021 14:11 Scot Warner MD in [place] 06/29/2021 14:11
--- NOTE | 2021-06-29 09:11 | XR_ITS ---
PROCEDURE: XR WRIST RT MIN 3V CLINICAL INDICATION: RIGHT WRIST PAIN/ CTS COMPARISON: No exams were available for comparison FINDINGS: No fracture or dislocation. No lytic or blastic change. There is normal mineralization. Minimal osteoarthritic change 1st metacarpal-carpal joint. Mild generalized osteopenia Other findings:None. IMPRESSION: Minimal osteoarthritis 1st carpal metacarpal joint with mild osteopenia Dictated by: Scot Warner MD 06/29/2021 14:31 Scot Warner MD in [place] 06/29/2021 14:31
== END ==
PROVIDERS: PCP Emergency Medicine; Visit Provider Orthopaedic Surgery
DX: G56.03 Carpal tunnel syndrome, bilateral upper limbs (principal)
CPT/HCPCS: 73110

== ENCOUNTER 2021-07-02 09:49 | Emergency (ER) | payer MEDICARE, BC, MEDICAID, SELFPAY ==
[2021-07-02] VITALS (8 sets, daily range): BP systolic 115–137; BP diastolic 73–88; PULSE 94–110; RESP 16–18; TEMP 36.8; O2SAT 96–98; BMI 31.6
--- NOTE | 2021-07-02 10:23 | CT_ITS ---
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 All CT scans at the facility use one or more dose reduction, viz: automated exposure control, ma/kV adjustment per patient size (including targeted exams where dose is matched to indication, i.e. head), or iterative reconstruction technique. FINDINGS: No midline shift, mass effect, intracranial hemorrhage, hydrocephalus, or extra-axial fluid collection is evident. The calvarium has an unremarkable appearance. No mastoid effusion. No sinus air-fluid level. IMPRESSION: No acute intracranial finding Dictated by: Scot Warner MD 07/02/2021 10:54 Scot Warner MD in [place] 07/02/2021 10:54
[2021-07-02 10:34] LABS: Basophils # 0.1 K/mm3 (0-0.2); Basophils % 0.9 % (0.1-2.0); Eosinophils # 0.2 K/mm3 (0.0-0.4); Eosinophils % 2.6 % (0.1-12.0); Hematocrit 44.1 % (37.0-47.0); Hemoglobin 14.7 g/dL (12.2-16.2); Lymphocytes # 2.5 K/mm3 (0.7-4.5); Lymphocytes % 41.6 % (10-50); Mean Corpuscular HGB Conc 33.4 g/dL (31.8-35.4); Mean Corpuscular Hemoglobin 30.7 pg (27.0-31.2); Mean Corpuscular Volume 91.7 fl (81-99); Mean Platelet Volume 8.4 fl (7.4-10.4); Monocytes # 0.4 K/mm3 (0.1-1.0); Monocytes % 5.9 % (1.7-9.3); Neutrophils # 2.9 K/mm3 (1.8-7.8); Platelet Count 285 K/mm3 (142-424); Red Blood Count 4.81 M/mm3 (4.20-5.40); Red Cell Distribution Width 12.9 % (11.5-17.5)
--- NOTE | 2021-07-02 10:35 | PC.NURSE ---
pt to CT
[2021-07-02 10:48] LABS: Chloride 107 mmol/L (98-107)
[2021-07-02 10:49] LABS: Potassium 3.9 mmoL/L (3.5-5.1); Sodium 141 mmol/L (136-145)
[2021-07-02 10:51] LABS: Blood Urea Nitrogen 13 mg/dl (7-17); Creatinine Clearance Estimated 79 mL/min (50-200); Estimated Glomerular Filt Rate 101 ml/min (>60); GFR (African American) 123 ML/MIN (>60)
[2021-07-02 10:52] LABS: Alanine Aminotransferase 21 U/L (12-78); Albumin Level 4.2 g/dl (3.5-5.0); Albumin/Globulin Ratio 1.5 (1.1-1.8); Alkaline Phosphatase 60 U/L (38-126); Anion Gap 17.9 mEq/L (5-15); Aspartate Amino Transferase 33 U/L (14-36); Bilirubin,Total 0.4 mg/dl (0.2-1.3); Calcium 9.4 mg/dl (8.4-10.2); Carbon Dioxide 20 mmol/L (22.0-30.0); Globulin 2.8 g/dL (1.3-3.2); Glucose 98 mg/dl (74-100)
[2021-07-02 10:58] LABS: Ethyl Alcohol < 10 mg/dl (0-10)
[2021-07-02 11:32] LABS: Lactic Acid 1.3 mmol/L (0.7-2.1)
--- NOTE | 2021-07-02 12:12 | PC.NURSE ---
pt is now more alert, states she does have hx of seizures. States she was previously [place] but states has not been on seizure medication since moving.
--- NOTE | 2021-07-02 12:23 | PC.NURSE ---
Pt ambulating with staff assistance to bathroom
[2021-07-02 12:34] LABS: Microscopic, Urine URINE MICROSCOPIC (MICROSCOPIC)
--- NOTE | 2021-07-02 12:40 | HMH.EDGENADL ---
ED Disposition Clinical Impression: Generalized seizure Urinary tract infection Qualifiers: Hematuria presence: with hematuria Disposition: Home, Self-Care Condition on Discharge: Good Instructions: DI for Seizure Disorder -- Adult Additional Instructions: Please refrain from driving, taking baths alone, operating heavy machinery or swimming alone until you are able to be evaluated by a neurologist. You have been given referral for neurology on an outpatient basis to help manage your seizure disorder. If your condition worsens or any other concerns arise, please return to the emergency department for reassessment. Referrals: Frank Newton MD [Primary Care Provider] - Marlena Lagunas MD [Staff Physician] - - Critical Care Critical Care Time: No Attestation: On 07/02/21, the high probability of a clinically significant, sudden or life threatening deterioration of the following system(s) required my full and direct attention, intervention and personal management. The time I documented below is in addition to time spent performing reported procedures but includes the following listed in this critical care notation. Medical Decision Making - Medical Records Medical records reviewed: Yes: I reviewed the patient's medical records. - Azeem Inquiry Pt receiving controlled substance: Yes (Has home Rx for norco ) Azeem was queried for this patient: No (No controlled substances in the ER) Risks and benefits of using a controlled substance: were not discussed with pt by me Vital Signs: 07/02/21 09:50 07/02/21 10:00 07/02/21 10:30 Temperature 98.2 F Temperature Source Oral Pulse Rate 103 H 99 H Pulse Rate [Right Radial] 110 H Respiratory Rate 18 18 18 Blood Pressure 119/73 121/82 Blood Pressure [Right Arm] 125/74 Blood Pressure Mean 82 95 Blood Pressure Mean [Right Arm] 91 Blood Pressure Source [Right Arm] Automatic Cuff Blood Pressure Position [Right Arm] Supine 02 Sat by Pulse Oximetry 97 98 97 Oxygen Delivery Method Room Air Room Air Room Air 07/02/21 11:00 07/02/21 11:30 07/02/21 12:00 Temperature Temperature Source Pulse Rate 101 H 94 H 97 H Pulse Rate [Right Radial] Respiratory Rate 16 16 16 Blood Pressure 137/88 115/76 128/84 Blood Pressure [Right Arm] Blood Pressure Mean 100 89 93 Blood Pressure Mean [Right Arm] Blood Pressure Source [Right Arm] Blood Pressure Position [Right Arm] 02 Sat by Pulse Oximetry 98 97 98 Oxygen Delivery Method Room Air Room Air Room Air - Lab Data Lab results reviewed: Yes: I reviewed the patient's lab results. Lab Results 07/02/21 10:00: WBC 6.0, RBC 4.81, Hgb 14.7, Hct 44.1, MCV 91.7, MCH 30.7, MCHC 33.4, RDW 12.9, Plt Count 285, MPV 8.4, Neut % (Auto) 49.0, Lymph % (Auto) 41.6, Irion % (Auto) 5.9, Eos % (Auto) 2.6, Baso % (Auto) 0.9, Neut # (Auto) 2.9, Lymph # (Auto) 2.5, Irion # (Auto) 0.4, Eos # (Auto) 0.2, Baso # (Auto) 0.1 07/02/21 10:00: Sodium 141, Potassium 3.9, Chloride 107, Carbon Dioxide 20 L, Anion Gap 17.9 H, BUN 13, Creatinine 0.60, Estimated Creat Clear 79, Estimated GFR 101, Est GFR ( Amer) 123, Glucose 98, Calcium 9.4, Total Bilirubin 0.4, AST 33, ALT 21, Alkaline Phosphatase 60, Total Protein 7.0, Albumin 4.2, Globulin 2.8, Albumin/Globulin Ratio 1.5 07/02/21 10:00: Plasma/Serum Alcohol < 10 07/02/21 11:07: Lactate 1.3 07/02/21 12:27: Urine Color Yellow, Urine Appearance Clear, Urine pH 6.0, Ur Specific Pryor 1.020, Urine Protein Negative, Urine Glucose (UA) Negative, Urine Ketones Negative, Urine Blood Trace-i, Urine Nitrate Positive, Urine Bilirubin Negative, Urine Urobilinogen 0.2, Ur Leukocyte Esterase Negative, Urine RBC 3-5, Urine WBC 3-5, Ur Squamous Epith Cells Occasional, Urine Bacteria None 07/02/21 12:27: Urine Opiates Screen Positive H, Urine Methadone Screen Negative, Ur Barbituates Screen Negative, Ur Phencyclidine Scrn Negative, Ur Amphetamines Screen Negative, U Benzodiazepines Scrn Negative, Uri
[2021-07-02 12:42] LABS: Appearance,Urine CLEAR (Clear); Bilirubin,Urine Negative (Negative); Blood, Urine TRACE-I (Negative); Color,Urine YELLOW (Yellow); Glucose,Urine (UA) Negative (Negative); Ketones,Urine Negative (Negative); Leukocyte Esterase,Urine Negative (Negative); Nitrate,Urine POSITIVE (Negative); Protein,Urine Negative (Negative); Urobilinogen,Urine 0.2 EU/dl (0.2)
[2021-07-02 12:54] LABS: Squamous Epithelial Cell,Urine Occasional #/hpf (0-5)
[2021-07-02 12:57] LABS: Benzodiazepines Screen,Urine Negative ng/ml (<200)
[2021-07-02 12:58] LABS: Amphetamine/Metha Screen,Urine Negative ng/ml (<1000)
[2021-07-02 12:59] LABS: Barbiturates Screen,Urine Negative ng/ml (<200); Cannabinoid Screen,Urine Negative ng/ml (<50)
[2021-07-02 13:00] LABS: Cocaine Screen,Urine Negative ng/ml (<300)
[2021-07-02 13:01] LABS: Methadone Screen,Urine Negative ng/ml (<300); Opiate Screen,Urine Positive ng/ml (<300)
[2021-07-02 13:02] LABS: Phencyclidine Screen,Urine Negative ng/ml (<25)
--- NOTE | 2021-07-02 14:05 | PC.NURSE ---
have called pt son to notify him pt is ready for d/c
== END 2021-07-02 14:53 | disposition home or self-care (01) ==
PROVIDERS: Emergency Provider Emergency Medicine; PCP Emergency Medicine
DX: G40.009 Localization-related (focal) (partial) idiopathic epilepsy and epileptic syndromes with seizures of localized onset, not intractable, without status epilepticus (principal); N39.0 Urinary tract infection, site not specified; K21.9 Gastro-esophageal reflux disease without esophagitis; E78.5 Hyperlipidemia, unspecified; I10 Essential (primary) hypertension; Z79.899 Other long term (current) drug therapy
CPT/HCPCS: 70450; 80053; 80305; 81001; 83605; 85025; 99283

== ENCOUNTER → 2021-08-30 16:00 | Outpatient (CLI) | payer MEDICARE, BC, SELFPAY ==
[2021-08-30 14:58] LABS: Amphetamine/Metha Screen,Urine Negative ng/ml (<1000)
[2021-08-30 14:59] LABS: Barbiturates Screen,Urine Negative ng/ml (<200); Benzodiazepines Screen,Urine Negative ng/ml (<200)
[2021-08-30 15:00] LABS: Cannabinoid Screen,Urine Negative ng/ml (<50); Cocaine Screen,Urine Negative ng/ml (<300)
[2021-08-30 15:01] LABS: Methadone Screen,Urine Negative ng/ml (<300)
[2021-08-30 15:02] LABS: Opiate Screen,Urine Negative ng/ml (<300); Phencyclidine Screen,Urine Negative ng/ml (<25)
== END ==
PROVIDERS: Visit Provider Emergency Medicine
DX: R56.9 Unspecified convulsions (principal); Z79.899 Other long term (current) drug therapy
CPT/HCPCS: 80305

== ENCOUNTER → 2021-09-06 09:46 | Outpatient (CLI) | payer MEDICARE, MEDICAID, SELFPAY ==
[2021-09-06 11:28] LABS: Sodium 138 mmol/L (136-145)
[2021-09-06 11:29] LABS: Chloride 105 mmol/L (98-107); Potassium 5.3 mmoL/L (3.5-5.1)
[2021-09-06 11:32] LABS: Calcium 9.3 mg/dl (8.4-10.2); Glucose 86 mg/dl (74-100)
[2021-09-06 11:33] LABS: Anion Gap 9.3 mEq/L (5-15); Blood Urea Nitrogen 14 mg/dl (7-17); Carbon Dioxide 29 mmol/L (22.0-30.0); Estimated Glomerular Filt Rate 73 ml/min (>60); GFR (African American) 88 ML/MIN (>60)
== END ==
PROVIDERS: PCP Emergency Medicine; Visit Provider Specialist
DX: G40.909 Epilepsy, unspecified, not intractable, without status epilepticus (principal)
CPT/HCPCS: 36415; 80048

== ENCOUNTER → 2021-09-08 07:49 | Outpatient (CLI) | payer MEDICARE, BC, SELFPAY ==
--- NOTE | 2021-09-08 07:49 | MR_ITS ---
FINAL REPORT CLINICAL HISTORY: seizure ACTIVITY 15ML PROHANCE INJECTED PRIOR CT HEAD 07-02-21 FINDINGS: Multiplanar MR imaging of the brain was performed without and with contrast. There is mild age-appropriate atrophy. Scattered foci of increased T2 signal are seen in the cerebral white matter that have a nonspecific appearance but likely represent mild chronic ischemic/gliotic changes. There is no evidence of intracranial hemorrhage or mass. No abnormal ventricular dilatation is identified. There is no evidence of shift of the midline structures. No abnormal extra-axial fluid collection is seen. No area of abnormal restricted diffusion is identified. The posterior fossa and brainstem have an unremarkable appearance. No abnormal contrast enhancement is seen. Normal major vessel vascular flow voids are seen. IMPRESSION: Mild atrophy and chronic ischemic/gliotic changes. No acute intracranial abnormality. Reviewed, Interpreted and Dictated by Dudley Sagastume III, MD Transcribed by Karson Win Authenticated by Dudley Sagastume III, MD on 09/08/2021 11:39:07 AM [facility]
== END ==
PROVIDERS: PCP Emergency Medicine; Visit Provider Specialist
DX: G40.909 Epilepsy, unspecified, not intractable, without status epilepticus (principal)
CPT/HCPCS: 70553; A9576

== ENCOUNTER → 2021-09-16 06:02 | Outpatient (CLI) | payer MEDICARE, BC, SELFPAY ==
--- NOTE | 2021-09-16 06:04 | CA_ITS ---
APPROVED REPORT Exam: Pharmacologic Technologist: Fara Ho, Ht: 5 ft 2 in Wt: 161 lbs BSA: 1.74 m2 HR: 91 bpm BP: 141/86 mmHg Rhythm: NSR, PVC Medical History Medical History: HTN, Hyperlipidemia Medications: Hydrocodone,,,,, Acetaminophen,,,,, Levetiracetam,,,,, DOxycycline,,,,, CHOLECALCIFEROL,,,,, Allergies: LATEX Cardiac Risk Factors: HTN, Hyperlipidemia, FHX of CAD Stress Test Details Test: LEXISCAN HR Resting HR: 90 bpm Max Heart Rate (APMHR): 158.911830 bpm Max HR Achieved: 114 bpm Target HR (85% APMHR): 134.203410 bpm % of APMHR: 72.15 Recovery HR: 106 bpm BP Resting BP: 141/86 mmHg Max BP: 141/86 mmHg Recovery BP: 133.0/76.0 mmHg ECG Resting ECG: NSR, PVC Clinical Exercise duration: 04:10 min Highest Stage Achieved: Exercise capacity: 1.0 METs Stress ECG Conclusion PT HAD MILD SOA, MILD CHEST PRESSURE, AND MILD STOMACH CRAMPS. NO SIGNIFICANT CHANGES. UNREMARKABLE LEXISCAN STRESS. MYOVIEW IMAGES REPORTED SEPARATELY. Test Summary REST 03:57 . . 90 . 141/ 86 . . Stage 1 01:00 . . 113 . . . . Stage 2 01:00 . . 110 . 105/ 62 . . Stage 3 01:00 . . 108 . 104/ 63 . . Stage 4 01:00 . . 103 . . . . Stage 4 01:10 . . 102 . . . Stop exercise at 04:10 RECOVERY 01:00 . . 99 . 109/ 70 . . RECOVERY 02:00 . . 108 . 109/ 70 . . RECOVERY 03:00 . . 96 . 139/ 80 . . RECOVERY 04:00 . . 102 . 133/ 76 . . RECOVERY 04:27 . . 101 . 133/ 76 . . Electronically signed by : Jonathon Mon MD 09/17/2021 09:19:33
--- NOTE | 2021-09-16 06:04 | NM_ITS ---
APPROVED REPORT Exam: Nuclear Stress Test Indication: FM HX, SOB, PALPITATIONSFATIGUE, ABN EKG Patient Location: Outpatient Stress Tech: Amrita Baker [place] Tech:Yeni Quintero VALERIEJose RT(R)(N) Ht: 5 ft 2 in Wt: 147 lbs Bra Size: 38DD HR: 91 bpm BP: 141/86 mmHg BSA: 1.68 m2 BMI: 26.8 History: FM HX, SOB, PALPITATIONSFATIGUE, ABN EKG PT COULD NOT LAY ON STOMACH FOR PRONE Procedure: Patient received a 0.4 mg of intravenous Lexiscan, resting heart rate 91 bpm, resting blood pressure 141/86 mmHg, with Lexiscan maximum heart rate achived was 113 bpm which is Less than 85 % of the maximum predicted heart rate and blood pressure was 105/62 mmHg. With Lexiscan, patient denied any complaint of chest pain. Electrocardiogram Resting electrocardiogram shows sinus rhythm nonspecific ST-T changes, with Lexiscan there is less than 1.[address] segment depression noted from the baseline EKG. The EKG portion of the Lexiscan is nondiagnostic. Cardiac Stress and Resting SPECT Images: Cardiac Stress and Resting SPECT images were obtained using technetium 99m Myoview 31.1 mCi stress and 10.61 mCi at rest. Gated SPECT for analysis of segmental wall motion and calculation of the ejection fraction also done. Cardiac stress and resting SPECT images show uniform myocardial activity without segmental perfusion abnormality, computer derived ejection is 58% with no regional wall motion abnormality. Right ventricle is normal size and contractility. There is transient ischemic dilatation noted in the study which is likely falsely abnormal. Conclusion: 1. The EKG portion of the Lexiscan is nondiagnostic. 2. No scintigraphic evidence of reversible ischemia seen, computer derived ejection fraction 58% with no regional wall motion abnormality, right ventricle is normal size and contractility. There is transient ischemic dilatation noted in the study which is likely falsely abnormal. 3. Likely normal Lexiscan Myoview study. Electronically signed by : Jonathon Mon MD 09/17/2021 09:22:24
--- NOTE | 2021-09-16 06:04 | CA_ITS ---
APPROVED REPORT EXAM: Comprehensive 2D, Doppler, and color-flow Echocardiogram Trauma Therapist: Chinyere Diggs, RCS, RVS Ht: 5 ft 2 in Wt: 161lbs BSA: 1.74 BP: 147/82 mmHg Indications: Abn ekg, Pre-op Hip, HTN, HLD Echo Enhancing Agent Comments: Technically limited due to abnormal cardiac seating/limited acoustic windows 2D Dimensions IVSd 0.91 cm LVEF (Visual) 84.70 % PWd 0.84 cm LA Volume 43.90 mL LVDd 4.75 cm LA Volume Index 25.20 mL/m2 (M/F) 16-34 LVDs 2.19 cm Aortic Root 2.45 cm Left Atrium 2.61 cm LVOT 1.66 cm (M/F) 1.5-2.5 LV Diastology E Decel Time 170.00 (160-240 msec) E/A Ratio 0.77 MED E' 8.30 (< 7 cm/sec) MED A' 12.90 cm/s E'/MED E' Ratio 12.89 (>14) LAT E' 9.80 (<10 cm/sec) LAT A' 13.40 cm/s E/LAT E' Ratio 10.92 (>14) Aortic Valve LVOT Max 107.00 (70-110 cm/s) LVOT VTI 24.04 cm AoV Peak French. 139.00 (50-130 cm/s) AO Peak GR. 7.70 mmHg AO Mean GR. 3.90 (<5 mmHg) AO VTI 26.78 (18-25 cm) LUCILLE (VTI) 1.94 (2.5-4.5 cm2) Mitral Valve MV A Velocity 139.00 (40-130 cm/s) E/A Ratio 0.77 MV Decel. Time 170.00 (160-240 ms) Pulmonary Valve PV Peak Velocity 101.00 (50-150 cm/s) Tricuspid Valve TR P. Velocity 206.00 cm/s Left Ventricle Left atrium is mildly enlarged, left ventricle is normal size, mild concentric left ventricular hypertrophy, visually estimated ejection fraction 55% with no regional wall motion abnormality, grade 1 diastolic dysfunction seen without tissue Doppler evidence of raise left atrial pressure. Right Ventricle Right atrium and right ventricle are normal size and contractility. Aortic Valve Aortic valve is minimally thickened and fibrosed, there is no aortic stenosis or aortic insufficiency. Mitral Valve Mitral valve grossly normal, there is trace mitral regurgitation. Tricuspid Valve Tricuspid grossly normal, there is trace tricuspid regurgitation, tricuspid regurgitation jet velocity is inadequate for calculation of the right ventricular systolic pressure. Pulmonic Valve Pulmonic valve is poorly visualized. Great Vessels Aortic root is normal size. Inferior vena cava is normal size with normal inspiratory collapse. Pericardium No significant pericardial effusion noted. Conclusion 1. Mildly enlarged left atrium, normal left ventricular size, mild concentric left ventricular hypertrophy, visually estimated ejection fraction 55% with no regional wall motion abnormality, grade 1 diastolic dysfunction seen without tissue Doppler evidence of raise left atrial pressure. 2. Trace mitral and tricuspid regurgitation. 3. No significant pericardial effusion noted. 4. Inferior vena cava is normal size with normal inspiratory collapse. Electronically signed by : Jonathon Mon MD 09/17/2021 14:58:36
== END ==
PROVIDERS: PCP Emergency Medicine; Visit Provider Physician Assistant
DX: R00.0 Tachycardia, unspecified (principal); R94.31 Abnormal electrocardiogram [ECG] [EKG]; Z01.810 Encounter for preprocedural cardiovascular examination
CPT/HCPCS: 78452; 93017; 93306; J2785

== ENCOUNTER → 2021-09-23 09:57 | Outpatient (CLI) | payer MEDICARE, BC, SELFPAY | PROVIDERS: PCP Emergency Medicine; Visit Provider Specialist | DX: G40.909 Epilepsy, unspecified, not intractable, without status epilepticus (principal); G47.9 Sleep disorder, unspecified | CPT/HCPCS: 95816; 95819 ==

== ENCOUNTER → 2021-09-24 20:57 | Outpatient (CLI) | payer MEDICARE, BC, SELFPAY | PROVIDERS: PCP Emergency Medicine; Visit Provider Specialist | DX: G47.33 Obstructive sleep apnea (adult) (pediatric) (principal) | CPT/HCPCS: 95810 ==

== ENCOUNTER 2022-03-12 05:19 | Emergency (ER) | payer MEDICARE, BC, SELFPAY ==
[2022-03-12 05:20] VITALS: BP 135/89; PULSE 91; RESP 14; TEMP 37.1; O2SAT 97; BMI 30.1
--- NOTE | 2022-03-12 05:44 | HMH.EDSKAF ---
ED Disposition Clinical Impression: Paronychia Disposition: Home, Self-Care Condition on Discharge: Good Instructions: DI for Paronychia Additional Instructions: keep clean and use meds and see pcp monday am at 0900 Prescriptions: cephALEXin [cephALEXin 500mg capsule*] 500 mg PO TID #30 cap Transmission Status: Pending to [id number] clindamycin HCL [Clindamycin HCl] 300 mg PO TID #30 cap Transmission Status: Pending to [id number] Referrals: Frank Newton MD [Primary Care Provider] - - Critical Care Critical Care Time: No Attestation: On 03/12/22, the high probability of a clinically significant, sudden or life threatening deterioration of the following system(s) required my full and direct attention, intervention and personal management. The time I documented below is in addition to time spent performing reported procedures but includes the following listed in this critical care notation. Medical Decision Making - Medical Records Medical records reviewed: Yes: I reviewed the patient's medical records. - Azeem Inquiry Pt receiving controlled substance: No Vital Signs: 03/12/22 05:20 Temperature 98.7 F Temperature Source Oral Pulse Rate [Right] 91 H Respiratory Rate 14 Blood Pressure [Right Arm] 135/89 Blood Pressure Mean [Right Arm] 104 02 Sat by Pulse Oximetry 97 Medical Decision Narrative: has prob paronychia rt middle finger Skin/Abscess/FB HPI - General Chief complaint: Skin/Abscess/Foreign Body Stated complaint: Right middle finger leaking and swollen Time Seen by Provider: 03/12/22 05:44 Mode of Arrival: Ambulatory Source of Information: Patient, Medical Record Limitations: No Limitations Description of Symptoms (Recalled from ER Triage Doc. by RN): pt states after changing nail belizean on monday her lt middle finger became red and swollen. pt c/o lt middle finger pain - History of Present Illness HPI narrative: pt with swelling and reddness to rt middle finger - with assoc pain MD complaint: other (swollen rt middle finger ) Onset (ago): day(s) Tetanus up to date: no Location: R hand Severity: moderate Associated symptoms: denies other symptoms Treatments prior to arrival: none - Related Data Home Medications Medication Instructions Recorded Confirmed levetiracetam 500 mg tablet See Rx Instructions .ROUTE 12/06/21 02/14/22 .COMPLEX tab Previous Rx's Medication Instructions Recorded cholecalciferol (vitamin D3) 1,250 1,250 mcg PO WEEKLY #12 cap 02/14/22 mcg (50,000 unit) capsule cholecalciferol (vitamin D3) 25 1,000 unit PO DAILY #90 cap 02/14/22 mcg (1,000 unit) capsule hydrocodone 5 mg-acetaminophen 325 1 tab PO BID #60 tab 02/14/22 mg tablet metoprolol succinate 25 mg See Rx Instructions .ROUTE 03/02/22 tablet,extended release 24 hr .COMPLEX #30 tab cephALEXin [cephALEXin 500mg 500 mg PO TID #30 cap 03/12/22 capsule*] clindamycin HCL [Clindamycin HCl] 300 mg PO TID #30 cap 03/12/22 Allergies Allergy/AdvReac Type Severity Reaction Status Date / Time latex Allergy Intermediate Rash Verified 02/14/22 09:46 [facility] History - Hepatitis A Screen Attestation statement:: This patient has been screened for Hepatitis A risk factors. I have reviewed the patient's past medical history: Yes Medical History: Reports:: Gastroesophageal Reflux Disease(GERD), Hyperlipidemia, Hypertension, Seizures Denies:: Cancer, Diabetes Mellitus Type 1, Diabetes Mellitus Type 2, Internal Pacemaker, MRSA Other Medical History: Reports: Arthritis. Denies: Blood Transfusion Reaction Laterality Cases: Left: Arthroscopy Hip, Total Hip Replacement, Bilateral: Carpal Tunnel Release Other Surgeries: Yes: No Previous Surgery, Tubal Ligation. No: Pacemaker Amputation: No Fractures: Yes - Social History Smoking Status: Never smoker Alcohol Intake: never Alcohol Intake Frequency:: other Substance Use Type: marijuana Occupational Status:
[2022-03-12 06:05] VITALS: BP 130/85; PULSE 70; RESP 18; TEMP 36.6; O2SAT 99
== END 2022-03-12 06:08 | disposition home or self-care (01) ==
PROVIDERS: Emergency Provider Emergency Medicine; PCP Emergency Medicine
DX: L03.011 Cellulitis of right finger (principal); B96.89 Other specified bacterial agents as the cause of diseases classified elsewhere
CPT/HCPCS: 90714; 90471; 87070; 87186; 87205; 90715; 96372; 99283; J0696

== ENCOUNTER → 2022-05-11 17:15 | Outpatient (CLI) | payer MEDICARE, BC, SELFPAY ==
[2022-05-11 14:45] LABS: Creatine Kinase 47 U/L (30-135); Uric Acid 4.9 mg/dl (2.5-6.2)
[2022-05-11 14:55] LABS: Erythrocyte Sedimentation Rate 17 mm/hr (0-30)
[2022-05-11 15:23] LABS: Amphetamine/Metha Screen,Urine Negative ng/ml (<1000)
[2022-05-11 15:24] LABS: Barbiturates Screen,Urine Negative ng/ml (<200)
[2022-05-11 15:25] LABS: Benzodiazepines Screen,Urine Negative ng/ml (<200)
[2022-05-11 15:27] LABS: Cannabinoid Screen,Urine Positive ng/ml (<50); Methadone Screen,Urine Negative ng/ml (<300)
[2022-05-11 15:28] LABS: Cocaine Screen,Urine Negative ng/ml (<300)
[2022-05-11 15:30] LABS: Opiate Screen,Urine Positive ng/ml (<300); Phencyclidine Screen,Urine Negative ng/ml (<25)
[2022-05-13 11:17] LABS: RA Latex Turbid. <10.0 IU/mL (<14.0)
[2022-05-13 16:16] LABS: Antinuclear Antibodies, IFA Negative (.)
== END ==
PROVIDERS: PCP Emergency Medicine; Visit Provider Emergency Medicine
DX: Z79.899 Other long term (current) drug therapy (principal); E66.3 Overweight; G40.909 Epilepsy, unspecified, not intractable, without status epilepticus; M25.551 Pain in right hip; M79.2 Neuralgia and neuritis, unspecified
CPT/HCPCS: 80305; 82550; 84550; 85651; 86038; 86431

== ENCOUNTER → 2022-08-01 08:45 | Outpatient (CLI) | payer MEDICARE, BC, SELFPAY ==
[2022-08-01 15:45] LABS: Basophils # 0.1 K/mm3 (0-0.2); Basophils % 1.7 % (0.1-2.0); Eosinophils # 0.1 K/mm3 (0.0-0.4); Eosinophils % 1.4 % (0.1-12.0); Hematocrit 43.2 % (37.0-47.0); Hemoglobin 13.6 g/dL (12.2-16.2); Lymphocytes # 1.9 K/mm3 (0.7-4.5); Lymphocytes % 22.1 % (10-50); Mean Corpuscular HGB Conc 31.5 g/dL (31.8-35.4); Mean Corpuscular Hemoglobin 27.7 pg (27.0-31.2); Mean Corpuscular Volume 87.9 fl (81-99); Mean Platelet Volume 8.6 fl (7.4-10.4); Monocytes # 0.4 K/mm3 (0.1-1.0); Monocytes % 4.9 % (1.7-9.3); Neutrophils # 5.9 K/mm3 (1.8-7.8); Neutrophils % 69.9 % (37.0-80.0); Platelet Count 477 K/mm3 (142-424); Red Blood Count 4.91 M/mm3 (4.20-5.40); Red Cell Distribution Width 13.8 % (11.5-17.5); White Blood Count 8.4 K/mm3 (4.8-10.8)
[2022-08-01 16:05] LABS: Amphetamine/Metha Screen,Urine Negative ng/ml (<1000); Barbiturates Screen,Urine Negative ng/ml (<200)
[2022-08-01 16:06] LABS: Benzodiazepines Screen,Urine Negative ng/ml (<200)
[2022-08-01 16:07] LABS: Cannabinoid Screen,Urine Negative ng/ml (<50); Cocaine Screen,Urine Negative ng/ml (<300)
[2022-08-01 16:08] LABS: Methadone Screen,Urine Negative ng/ml (<300); Opiate Screen,Urine Negative ng/ml (<300)
[2022-08-01 16:09] LABS: Phencyclidine Screen,Urine Negative ng/ml (<25)
[2022-08-01 16:14] LABS: Alanine Aminotransferase 14 U/L (12-78); Albumin Level 4.3 g/dl (3.5-5.0); Albumin/Globulin Ratio 1.4 (1.1-1.8); Alkaline Phosphatase 99 U/L (38-126); Anion Gap 15.4 mEq/L (5-15); Aspartate Amino Transferase 24 U/L (14-36); Bilirubin,Total 0.6 mg/dl (0.2-1.3); Blood Urea Nitrogen 9 mg/dl (7-17); Calcium 9.7 mg/dl (8.4-10.2); Carbon Dioxide 23 mmol/L (22.0-30.0); Chloride 105 mmol/L (98-107); Cholesterol 253 mg/dl (140-200); Estimated Glomerular Filt Rate 101 ml/min (>60); GFR (African American) 122 ML/MIN (>60); Glucose 100 mg/dl (74-100); HDL Cholesterol 42 mg/dl (40-60); Potassium 4.4 mmoL/L (3.5-5.1); Sodium 139 mmol/L (136-145); Total Protein,Serum 7.3 g/dl (6.3-8.2); Triglycerides 168 mg/dl (30-150); VLDL Cholesterol 34 mg/dL (0-40)
[2022-08-01 16:25] LABS: Direct LDL Cholesterol 169.61 mg/dL (100-129)
[2022-08-01 16:30] LABS: Erythrocyte Sedimentation Rate 37 mm/hr (0-30)
[2022-08-01 16:31] LABS: Free T4 (Free Thyroxine) 1.46 ng/dl (0.78-2.19)
[2022-08-01 16:32] LABS: 25-OH Vitamin D, Total 69.5 ng/mL (30-100)
[2022-08-01 16:45] LABS: Thyroid Stimulating Hormone 2.59 uIU/mL (0.465-4.68)
== END ==
PROVIDERS: PCP Emergency Medicine; Visit Provider Emergency Medicine
DX: Z79.899 Other long term (current) drug therapy (principal); E66.3 Overweight; E55.9 Vitamin D deficiency, unspecified; Z68.27 Body mass index [BMI] 27.0-27.9, adult
CPT/HCPCS: 80053; 80061; 80305; 82306; 84439; 84443; 85025; 85651

== ENCOUNTER 2024-02-17 12:55 | Emergency (ER) | payer MEDICARE, BC, SELFPAY ==
[2024-02-17 12:56] VITALS: BP 179/111; PULSE 107; RESP 20; TEMP 36.9; O2SAT 93; BMI 23.8
[2024-02-17 13:01] VITALS: BP 203/110; PULSE 110; O2SAT 97
[2024-02-17 13:02] VITALS: BP 179/111; PULSE 110; O2SAT 98
--- NOTE | 2024-02-17 13:12 | ECG_ITS ---
APPROVED REPORT Exam: Resting ECG HR:93 bpm ECG Measurements Heart Rate 93 AXES AK 166 P 47 QRSd 76 QRS 8 QT 345 T 38 QTc 395 Conclusion SINUS RHYTHM POSSIBLE LEFT ATRIAL ENLARGEMENT [-0.1mV P-WAVE IN V1/V2] LOW QRS VOLTAGE IN PRECORDIAL LEADS [QRS DEFLECTION < 1.0 mV IN CHEST LEADS] BORDERLINE ECG Electronically signed by : TEE FISHER, 02/17/2024 18:20:37
--- NOTE | 2024-02-17 13:23 | PC.NURSE ---
DR KAPLAN AT BEDSIDE
[2024-02-17 13:30] VITALS: BP 162/87; PULSE 81; O2SAT 97
--- NOTE | 2024-02-17 13:31 | XR_ITS ---
PROCEDURE INFORMATION: Exam: XR Chest Exam date and time: 02/17/2024 1:31 PM Age: 64 years old Clinical indication: Patient HX: Cough with whitish sputum; Additional info: Dizziness TECHNIQUE: Imaging protocol: Radiologic exam of the chest. Views: 1 view. COMPARISON: CR XR CHEST PORTABLE 11/23/2020 9:16 AM FINDINGS: Lungs: Unremarkable. No consolidation. Pleural spaces: Unremarkable. No pleural effusion. No pneumothorax. Heart/Mediastinum: Unremarkable. No cardiomegaly. Bones/joints: Unremarkable. Small hiatal hernia. IMPRESSION: No acute findings. Small hiatal hernia.
[2024-02-17] MEDS: hydroCHLOROthiazide 25MG TABLET 25 MG PO (13:41)
[2024-02-17 13:46] LABS: Albumin Level 4.1 g/dl (3.5-5.0); Chloride 108 mmol/L (98-107); Potassium 4.6 mmoL/L (3.5-5.1); Sodium 138 mmol/L (136-145)
[2024-02-17 13:49] LABS: Alanine Aminotransferase 23 U/L (12-78); Albumin/Globulin Ratio 1.4 (1.1-1.8); Alkaline Phosphatase 80 U/L (38-126); Anion Gap 10.6 mEq/L (5-15); Aspartate Amino Transferase 54 U/L (14-36); Bilirubin,Total 0.8 mg/dl (0.2-1.3); Blood Urea Nitrogen 12 mg/dl (7-17); Calcium 9.8 mg/dl (8.4-10.2); Carbon Dioxide 24 mmol/L (22.0-30.0); Creatinine Clearance Estimated 52 mL/min (50-200); Estimated Glomerular Filt Rate 84 ml/min (>60); GFR (African American) 102 ML/MIN (>60); Globulin 2.9 g/dL (1.3-3.2); Glucose 120 mg/dl (74-100); Magnesium 2.2 mg/dl (1.6-2.3)
[2024-02-17 14:00] VITALS: BP 163/85; PULSE 75; O2SAT 97
[2024-02-17 14:02] LABS: Troponin I < 0.01 ng/ml (0.00-0.034)
--- NOTE | 2024-02-17 14:03 | HMH.EDGENADL ---
Discharge Plan Disposition Patient Disposition: Home, Self-Care Prescriptions Prescriptions: New hydrochlorothiazide 25 mg tablet 25 mg PO DAILY Qty: 30 4RF No Action methylprednisolone [Medrol (Jono)] 4 mg tablets,dose pack See Rx Instructions PO PER PKG DIR Qty: 21 0RF Rx Instructions: PO PER PKG DIR levetiracetam 500 mg tablet See Rx Instructions .ROUTE .COMPLEX Qty: 60 2RF Dose Instruction: TAKE ONE TABLET BY MOUTH 2 TIMES A DAY Rx Instructions: TAKE ONE TABLET BY MOUTH 2 TIMES A DAY cholecalciferol (vitamin D3) 1,250 mcg (50,000 unit) capsule See Rx Instructions .ROUTE .COMPLEX Qty: 14 2RF Dose Instruction: TAKE ONE CAPSULE BY MOUTH EVERY WEEK Rx Instructions: TAKE ONE CAPSULE BY MOUTH EVERY WEEK cholecalciferol (vitamin D3) 25 mcg (1,000 unit) tablet 25 mcg .ROUTE .COMPLEX Qty: 30 2RF Rx Instructions: 25 mcg; metoprolol succinate 25 mg tablet extended release 24 hr See Rx Instructions .ROUTE .COMPLEX Qty: 30 0RF Dose Instruction: TAKE ONE TABLET BY MOUTH ONCE A DAY Rx Instructions: TAKE ONE TABLET BY MOUTH ONCE A DAY Referrals Follow up/Referrals: Bibi Kerr PA [Primary Care Provider] - See instructions Activity Restrictions/Add. Instructions Additional Instructions/Restrictions: Take hydrochlorothiazide 25 mg daily until following up with your family doctor. Call your family doctor to establish care for this visit to the emergency department and schedule follow-up within 48 hours to ensure improvement. If you have any worsening of your condition or any other concerning signs or symptoms, return to the emergency department or your primary care doctor for further evaluation. Clinical Impressions Clinical Impression: Peripheral vertigo Print Language Print Language: [place] Discharge ED Provider: Javy Krishnan General Adult HPI General Chief complaint: Dizziness Stated complaint: dizzy, diff standing Time Seen by Provider: 02/17/24 13:10 Mode of Arrival: Wheelchair Source of Information: Patient Limitations: Physical Limitations Description of Symptoms (Recalled from ER Triage Doc. by RN): pt reports increased dizziness weakness. sweating History of Present Illness HPI narrative: Please note that above description of symptoms, in this electronic medical record under categorization of recalled from ER triage doctor by RN are reflective of an initial nursing assessment, however, is not reflective of my full history and physical exam that was personally taken and clarified. Consequentially, this preceding description of symptoms, which may include the patient's categorized chief complaint in the EMR, do not reflect my personal clinical impression, and the ultimate description of history of present illness and patient stated complaints should be deferred to this section of the note. Unless stated otherwise or congruent with this section of the note, additional signs, symptoms, or incongruence should be interpreted as inaccurate with my clinical impression. Related Data Previous Rx's ?Medication ?Instructions ?Recorded methylprednisolone 4 mg tablets in See Rx Instructions PO PER PKG DIR 05/17/23 a dose pack (Medrol (Jono)) #21 tabs levetiracetam 500 mg tablet See Rx Instructions .Route 11/13/23 .COMPLEX #60 tabs cholecalciferol (vitamin D3) 1,250 See Rx Instructions .Route 12/11/23 mcg (50,000 unit) capsule .COMPLEX #14 caps cholecalciferol (vitamin D3) 25 25 mcg .Route .COMPLEX #30 tabs 02/13/24 mcg (1,000 unit) tablet metoprolol succinate 25 mg See Rx Instructions .Route 02/13/24 tablet,extended release 24 hr .COMPLEX #30 tabs hydrochlorothiazide 25 mg tablet 25 mg PO DAILY #30 tabs 02/17/24 Allergies Allergy/AdvReac Type Severity Reaction Status Date / Time latex Allergy Intermediate Rash Verified 05/17/23 09:24 [facility] Disclaimer: The information contained in this section may have been updated after the patient was seen, as this information can be updated by other users. Medical History Abnormal electrocardiography Edema Encounter for pre-operative cardiovascular clearance Sinus tachycardia Social History Smoking Status: Never smoker second hand exposure: Yes alcohol intake: never substance use type: marijuana current occupational status: disabled Travel in the last 8 weeks: Inside the [place] household members: children housing: house current occupational exposures/hazards: No ROS Obtained: Yes All systems reviewed & no additional complaints except as documented Physical Exam General General appearance: alert Head Head exam: atraumatic and normocephalic Eye Eye exam: Present normal appearance, PERRL, EOMI and other (No nystagmus) Neck Neck exam: Present normal inspection, full ROM and trachea midline Respiratory Respiratory exam: Present normal lung sounds bilaterally; Absent respiratory distress, wheezes, stridor, accessory muscle use or prolonged expiratory phase Cardiovascular Cardiovascular exam: Present regular rate, normal rhythm, normal heart sounds and other (Pulses equal symmetric in upper and lower extremities) Abdominal Exam Abdominal exam: Present soft; Absent distention, tenderness or pulsatile mass Extremities Exam Extremities exam: Absent edema Neurological Exam Neurological exam: Present alert, oriented X3, CN II-XII intact, normal gait and other (Cerebellar exam normal); Absent motor sensory deficit Skin Skin exam: Present warm and dry; Absent diaphoresis or erythema Medical Decision Making Medical Records Medical records reviewed: Yes I reviewed the patient's medical records. Azeem Inquiry Pt receiving controlled substance: No Azeem was queried for this patient: No Vital Signs: 02/17/24 12:56 02/17/24 13:01 02/17/24 13:02 Temperature 98.4 F Temperature Source Oral Pulse Rate 110 H 110 H Pulse Rate [Right] 107 H Respiratory Rate 20 Blood Pressure 203/110 H 179/111 H Blood Pressure [Right Arm] 179/111 H Blood Pressure Mean [Right Arm] 133 02 Sat by Pulse Oximetry 93 L 97 98 Oxygen Delivery Method Room Air 02/17/24 13:30 02/17/24 14:00 Temperature Temperature Source Pulse Rate 81 75 Pulse Rate [Right] Respiratory Rate Blood Pressure 162/87 H 163/85 H Blood Pressure [Right Arm] Blood Pressure Mean [Right Arm] 02 Sat by Pulse Oximetry 97 97 Oxygen Delivery Method Lab Data Lab Results 02/17/24 13:20: WBC 6.9, RBC 4.81, Hgb 14.4, Hct 43.0, MCV 89.3, MCH 29.9, MCHC 33.5, RDW 13.5, Plt Count 291, MPV 7.9, Neut % (Auto) 64.1, Lymph % (Auto) 26.8, [place] % (Auto) 6.2, Eos % (Auto) 1.6, Baso % (Auto) 1.2, Neut # (Auto) 4.4, Lymph # (Auto) 1.9, [place] # (Auto) 0.4, Eos # (Auto) 0.1, Baso # (Auto) 0.1 02/17/24 13:35: Sodium 138, Potassium 4.6, Chloride 108 H, Carbon Dioxide 24, Anion Gap 10.6, BUN 12, Creatinine 0.70, Estimated Creat Clear 52, Estimated GFR 84, Est GFR ( Amer) 102, Glucose 120 H, Calcium 9.8, Magnesium 2.2, Total Bilirubin 0.8, AST 54 H, ALT 23, Alkaline Phosphatase 80, Troponin I < 0.01, Total Protein 7.0, Albumin 4.1, Globulin 2.9, Albumin/Globulin Ratio 1.4 02/17/24 13:20 02/17/24 13:35 Orders (Tests/Meds): ED MEDICATIONS Discontinued Medications Generic Name Dose Route Start Last Admin Trade Name Flavioq PRN Reason Stop Dose Admin Hydrochlorothiazide 25 mg 02/17/24 13:32 02/17/24 13:41 Hydrochlorothiazide 25mg Tablet PO 02/17/24 13:33 25 mg ONCE ONE Administration ORDERS Category Date Time Status CXR --portable [XR chest portable] Stat Exams 02/17/24 13:31 Completed CBC w/Auto Diff [Complete Blood Count Auto Diff] Stat Lab 02/17/24 13:20 Completed CMP [Comprehensive Metabolic Panel] Stat Lab 02/17/24 13:35 Completed Magnesium Stat Lab 02/17/24 13:35 Completed Trop I [Troponin I] Stat Lab 02/17/24 13:35 Completed Troponin I Q3H Lab 02/17/24 16:45 Ordered Troponin I Q3H Lab 02/17/24 19:45 Ordered 12-lead EKG Request [ECG Request] Stat Y 02/17/24 13:13 Ordered Medical Decision Narrative: 64-year-old female history of seizure disorder on levetiracetam, BPPV, hypertension presenting with dizziness. Patient states yesterday she started feeling dizzy and lightheaded. Changes in position including standing from seated position make it worse. Not present at rest. No chest pain, shortness of breath, diaphoresis. States that she had positional vertigo in the past and has not had it in a while. No vision changes, or other neurologic deficits. No recent changes medications. She does also note that she has been having ringing in both of her ears for the past few days. History was obtained via conversation with patient. On arrival, patient hemodynamically stable, alert, oriented x4, appropriate, GCS 15, moving all extremities spontaneously, pupils equal and reactive to light. Full physical exam performed and significant for very well-appearing female no acute distress. Cranial nerve, cerebellar, motor and sensory exam within normal limits. No nystagmus. Cardiopulmonary exam within normal notes as well. Differential includes BPPV, M?ni?re's disease, other peripheral vertigo, among others. Independent rotation of workup demonstrates nonactionable CBC or chemistry. Troponin negative. Chest x-ray without acute cardiopulmonary airspace disease on independent rotation. EKG independently interpreted and significant for sinus rhythm 93 beats a minute without ST or T wave changes concerning for acute ischemia. NE 166, QRS 76, QTc 395. [address] normal. On reevaluation, patient still at baseline. Given negative neuroexam, negative cardiac workup, negative workup overall, positional symptoms, I feel is most likely telesales representative of peripheral vertigo, likely M?ni?re's disease given self-reported tinnitus. Because patient at baseline without signs or symptoms of clinical decompensation, deemed appropriate for discharge. Results were relayed to patient who voiced understanding and were agreeable to outpatient management and follow up. I discussed my clinical impression with patient and answered all questions. At this time, the evidence for any other entities in the differential is insufficient to warrant any further testing or ED observation. This was explained as well. Advisory was given that persistent or worsening symptoms require further evaluation. I confirmed the understanding of this discussion. Environmental Sciences Professor disclaimer Much of this encounter note is an electronic proposal writer spoken language to printed text. Electronic proposal writer of the spoken language may permit errors. Although I have reviewed the note, some errors may still exist. Critical Care Critical Care Time Critical Care Time: No
[2024-02-17 14:04] LABS: Basophils # 0.1 K/mm3 (0-0.2); Basophils % 1.2 % (0.1-2.0); Eosinophils # 0.1 K/mm3 (0.0-0.4); Eosinophils % 1.6 % (0.1-12.0); Hemoglobin 14.4 g/dL (12.2-16.2); Lymphocytes # 1.9 K/mm3 (0.7-4.5); Lymphocytes % 26.8 % (10-50); Mean Corpuscular HGB Conc 33.5 g/dL (31.8-35.4); Mean Corpuscular Hemoglobin 29.9 pg (27.0-31.2); Mean Corpuscular Volume 89.3 fl (81-99); Mean Platelet Volume 7.9 fl (7.4-10.4); Monocytes # 0.4 K/mm3 (0.1-1.0); Monocytes % 6.2 % (1.7-9.3); Neutrophils # 4.4 K/mm3 (1.8-7.8); Neutrophils % 64.1 % (37.0-80.0); Platelet Count 291 K/mm3 (142-424); Red Blood Count 4.81 M/mm3 (4.20-5.40); Red Cell Distribution Width 13.5 % (11.5-17.5); White Blood Count 6.9 K/mm3 (4.8-10.8)
[2024-02-17 15:15] VITALS: BP 163/85; PULSE 75; RESP 20; TEMP 36.9; O2SAT 97
== END 2024-02-17 15:15 | disposition home or self-care (01) ==
PROVIDERS: Emergency Provider Emergency Medicine; PCP Physician Assistant
DX: H81.399 Other peripheral vertigo, unspecified ear (principal); I10 Essential (primary) hypertension
CPT/HCPCS: 71045; 80053; 83735; 84484; 85025; 93005; 99284

== ENCOUNTER 2024-02-19 10:02 | Outpatient (CLI) | payer MEDICARE, BC, SELFPAY | END 2024-02-19 23:59 | disposition home or self-care (01) | LOC: RT 10:05 | PROVIDERS: PCP Family Medicine; Visit Provider Family Medicine | DX: R00.0 Tachycardia, unspecified (principal) | CPT/HCPCS: 93270 ==

== ENCOUNTER 2024-02-24 10:16 | Observation (INO) | payer MEDICARE, SELFPAY ==
[2024-02-24] VITALS (11 sets, daily range): BP systolic 100–139; BP diastolic 60–84; PULSE 75–112; RESP 15–19; TEMP 36.5–37.3; O2SAT 96–99; BMI 25.6; BMI 27.8
--- NOTE | 2024-02-24 10:32 | CT_ITS ---
PROCEDURE INFORMATION: Exam: CT Head Without Contrast Exam date and time: 02/24/2024 10:46 AM Age: 64 years old Clinical indication: Injury or trauma; Fall; Blunt trauma (contusions or hematomas); Additional info: Fall head injury, seizure vs. Syncope? TECHNIQUE: Imaging protocol: Computed tomography of the head without contrast. Radiation optimization: All CT scans at this facility use at least one of these dose optimization techniques: automated exposure control; mA and/or kV adjustment per patient size (includes targeted exams where dose is matched to clinical indication); or iterative reconstruction. COMPARISON: MR HEAD/BRAIN WO/W CON 09/08/2021 8:23 AM FINDINGS: Brain: Normal. No hemorrhage. Unremarkable white matter. No mass effect. Cerebral ventricles: No ventriculomegaly. Paranasal sinuses: Visualized sinuses are unremarkable. No fluid levels. Mastoid air cells: Visualized mastoid air cells are well aerated. Bones: Unremarkable. No acute fracture. Soft tissues: Unremarkable. IMPRESSION: No acute intracranial abnormality.
--- NOTE | 2024-02-24 10:34 | HMH.EDGENADL ---
Discharge Plan Disposition Patient Disposition: Admitted Prescriptions Prescriptions: No Action metoprolol succinate 25 mg tablet extended release 24 hr See Rx Instructions .ROUTE .COMPLEX Qty: 90 1RF Dose Instruction: TAKE ONE TABLET BY MOUTH ONCE A DAY Rx Instructions: TAKE ONE TABLET BY MOUTH ONCE A DAY meclizine 25 mg tablet 25 mg PO BID PRN (Reason: dizziness) Qty: 20 0RF Debrox 6.5 % drops 5 drp otic (ear) BID 4 Days Qty: 15 0RF levetiracetam 500 mg tablet See Rx Instructions .ROUTE .COMPLEX Qty: 60 2RF Dose Instruction: TAKE ONE TABLET BY MOUTH 2 TIMES A DAY Rx Instructions: TAKE ONE TABLET BY MOUTH 2 TIMES A DAY cholecalciferol (vitamin D3) 1,250 mcg (50,000 unit) capsule See Rx Instructions .ROUTE .COMPLEX Qty: 14 2RF Dose Instruction: TAKE ONE CAPSULE BY MOUTH EVERY WEEK Rx Instructions: TAKE ONE CAPSULE BY MOUTH EVERY WEEK cholecalciferol (vitamin D3) 25 mcg (1,000 unit) tablet 25 mcg .ROUTE .COMPLEX Qty: 30 2RF Rx Instructions: 25 mcg; hydrochlorothiazide 25 mg tablet 25 mg PO DAILY Qty: 30 4RF Referrals Follow up/Referrals: Provider,Referral, MD [Referring] - See instructions Clinical Impressions Clinical Impression: Syncope, Acute hypokalemia Print Language Print Language: Albanian Discharge ED Provider: Robert Zacarias General Adult HPI General Chief complaint: Fall Stated complaint: possible seizure Time Seen by Provider: 02/24/24 10:23 Mode of Arrival: EMS Source of Information: Patient and EMS Limitations: No Limitations Description of Symptoms (Recalled from ER Triage Doc. by RN): pt presents to ED with c/o fall. pt reports that she does not remember the fall. pt reports that she last remembers walking into the door then waking up to EMS being there. pts sons called EMS. pt reports pain in right hip and right shoulder. pt has hx of seizures. History of Present Illness HPI narrative: Patient is a 64-year-old female presenting today with a questionable seizure and a fall. Patient does not recall the event is amnestic. She is not on any anticoagulants. She does have a history of seizure-like episodes/spells she has been followed by Dr. Marlena Lagunas at [facility]. These have not been confirmed to be epileptic and are suspected to be nonepileptic in nature. Per Dr. Lagunas's note she was referred to Dr. Benedicto Garza an epileptologist and the patient claims that she was never aware of this referral and did not follow-up. She is on Keppra 500 mg twice daily and states she has been compliant with his medications. History is obtained from the patient she is unable to describe the event as her sons called EMS today. She did not bite her tongue did not have any loss of urinary continence. Has had a brain MRI within the last year which was unremarkable. Patient does complain of headache and right shoulder pain. From EMS son state that she may have fallen into a piece of furniture with what ever episode she experienced today. Patient denies any chest pain shortness of breath any history of drug use or alcohol withdrawal or benzo use. She does have a history of neuropathic pain has been on gabapentin denies any recent discontinuation of any medications. Related Data Previous Rx's ?Medication ?Instructions ?Recorded levetiracetam 500 mg tablet See Rx Instructions .Route 11/13/23 .COMPLEX #60 tabs cholecalciferol (vitamin D3) 1,250 See Rx Instructions .Route 12/11/23 mcg (50,000 unit) capsule .COMPLEX #14 caps cholecalciferol (vitamin D3) 25 25 mcg .Route .COMPLEX #30 tabs 02/13/24 mcg (1,000 unit) tablet hydrochlorothiazide 25 mg tablet 25 mg PO DAILY #30 tabs 02/17/24 carbamide peroxide 6.5 % ear drops 5 drp otic (ear) BID 4 days #15 mL 02/19/24 (Debrox) meclizine 25 mg tablet 25 mg PO BID PRN dizziness #20 tabs 02/19/24 metoprolol succinate 25 mg See Rx Instructions .Route 02/19/24 tablet,extended release 24 hr .COMPLEX #90 tabs Allergies Allergy/AdvReac Type Severity Reaction Status Date / Time latex Allergy Intermediate Rash Verified 02/19/24 08:41 [facility] Disclaimer: The information contained in this section may have been updated after the patient was seen, as this information can be updated by other users. Medical History (Updated 02/24/24 @ 12:02 by Robert Zacarias MD) Encounter for colorectal cancer screening Encounter for pre-operative cardiovascular clearance Edema Sinus tachycardia Abnormal electrocardiography Social History Smoking Status: Current every day smoker second hand exposure: Yes alcohol intake: never substance use type: marijuana current occupational status: disabled Travel in the last 8 weeks: Inside the [place] household members: children housing: house current occupational exposures/hazards: No ROS Obtained: Yes All systems reviewed & no additional complaints except as documented Physical Exam General General appearance: alert and in no apparent distress Head Head exam: atraumatic and normocephalic Respiratory Respiratory exam: Present normal lung sounds bilaterally; Absent respiratory distress Cardiovascular Cardiovascular exam: Present regular rate and normal rhythm Abdominal Exam Abdominal exam: Present soft; Absent distention or tenderness Neurological Exam Neurological exam: Present alert, oriented X3 and CN II-XII intact; Absent normal gait or motor sensory deficit Medical Decision Making Azeem Inquiry Pt receiving controlled substance: No Vital Signs: 02/24/24 10:26 02/24/24 10:30 02/24/24 11:00 Temperature 99.1 F Temperature Source Oral Pulse Rate 101 H 101 H Pulse Rate [Left Radial] 112 H Respiratory Rate 19 Blood Pressure 111/64 100/60 L Blood Pressure [Right Arm] 119/66 Blood Pressure Mean [Right Arm] 83 02 Sat by Pulse Oximetry 96 96 96 Oxygen Delivery Method Room Air Room Air Room Air 02/24/24 11:30 Temperature Temperature Source Pulse Rate 101 H Pulse Rate [Left Radial] Respiratory Rate Blood Pressure 114/67 Blood Pressure [Right Arm] Blood Pressure Mean [Right Arm] 02 Sat by Pulse Oximetry 97 Oxygen Delivery Method Room Air Lab Data Lab results reviewed: Yes I reviewed the patient's lab results. Lab Results 02/24/24 10:21: WBC 8.6, RBC 4.79, Hgb 14.1, Hct 42.6, MCV 89.0, MCH 29.4, MCHC 33.1, RDW 13.2, Plt Count 349, MPV 8.7, Neut % (Auto) 60.3, Lymph % (Auto) 29.7, [place] % (Auto) 7.4, Eos % (Auto) 1.6, Baso % (Auto) 0.9, Neut # (Auto) 5.2, Lymph # (Auto) 2.6, [place] # (Auto) 0.6, Eos # (Auto) 0.1, Baso # (Auto) 0.1, Sodium 135 L, Potassium 2.2 L*, Chloride 95 L, Carbon Dioxide 26, Anion Gap 16.2 H, BUN 16, Creatinine 1.10 H, Estimated Creat Clear 51, Estimated GFR 50 L, Est GFR ( Amer) 60, Glucose 182 H, Calcium 8.8, Magnesium 1.8, Total Bilirubin 0.5, AST 37 H, ALT 38, Alkaline Phosphatase 76, Troponin I < 0.01, Total Protein 6.8, Albumin 4.0, Globulin 2.8, Albumin/Globulin Ratio 1.4, TSH 2.24 02/24/24 10:21 02/24/24 10:21 Orders (Tests/Meds): ED MEDICATIONS Generic Name Dose Route Start Last Admin Trade Name Freq PRN Reason Stop Dose Admin Potassium Chloride/Water 100 mls @ 100 mls/hr 02/24/24 11:15 02/24/24 11:25 Potassium Chloride 10meq/100ml Ivpb IV 02/24/24 14:14 100 mls/hr Q1H [place] Administration Discontinued Medications Generic Name Dose Route Start Last Admin Trade Name Freq PRN Reason Stop Dose Admin Lactated Ringer's 1,000 mls @ 999 mls/hr 02/24/24 10:45 02/24/24 10:48 Lactated Ringer's 1000 Ml Bag IV 02/24/24 11:45 999 mls/hr .Q1H1M [place] Administration Potassium Chloride 40 meq 02/24/24 11:01 02/24/24 11:15 Potassium Chloride 20meq Tab PO 02/24/24 11:02 Not Given ONCE ONE Potassium Chloride 40 meq 02/24/24 11:15 02/24/24 11:25 Potassium Chloride 20meq/15ml Udc PO 02/24/24 11:16 40 meq ONCE ONE Administration ORDERS Category Date Time Status CT head/brain wo con Stat Cat Scan 02/24/24 10:32 Completed Humerus XR right [XR humerus RT] Stat Exams 02/24/24 10:35 Completed Shoulder XR right miminum 2 views [XR shoulder RT min Exams 02/24/24 10:35 Completed 2V] Stat CBC w/Auto Diff [Complete Blood Count Auto Diff] Stat Lab 02/24/24 10:21 Completed CMP [Comprehensive Metabolic Panel] Stat Lab 02/24/24 10:21 Completed Magnesium Stat Lab 02/24/24 10:21 Completed TSH [Thyroid Stimulating Hormone] Stat Lab 02/24/24 10:21 Completed Trop I [Troponin I] Stat Lab 02/24/24 10:21 Completed Troponin I Q3H Lab 02/24/24 13:45 Ordered Troponin I Q3H Lab 02/24/24 16:45 Ordered UDS [Drug Screen,Urine] Stat Lab 02/24/24 10:33 Ordered ECG Data Tracing #1: I reviewed this ECG and interpreted as documented below: Ventricular rate of 99 sinus rhythm no acute ischemic changes noted no significant conduction abnormalities normal axis Medical Decision Narrative: 64-year-old female with a normal neurologic exam awake alert oriented GCS of 15 with a nonfocal exam. She presents with questionable seizure-like activity. These episodes have been going on for the last several years she is currently followed by Dr. Lagunas'vel and is on Keppra. States he is only had a few of these episodes within the last year. She does not recall the entire event but does have mild headache and right shoulder and humerus pain which will get imaging from an injury standpoint. She had a normal brain MRI 1 year ago. I do not suspect drug withdrawal she has no toxidromes of any sort. Will get a UDS however. She does admit to doing marijuana which could be contributory. She has no evidence of status epilepticus at the moment. Will not load her with further antiepileptic medications. She understands seizure precautions and has been on these in the past. Will reassess after the emergency workup is completed. Reassessment 12:04 PM patient still awake alert oriented GCS of [address] scan and x-rays performed to person interpreted shows no acute intracranial abnormality no fracture or dislocation in the shoulder or humerus. Labs unremarkable aside from significant hypokalemia potassium of 2.2 initiated oral and IV replacement this will take much longer than could be done in the emergency department she will require admission/observation. Unclear as to the cause of this this will be further evaluated by Dr. Zeferino Junior with hospital medicine who agrees to admit the patient. Critical Care Critical Care Time Critical Care Time: No
--- NOTE | 2024-02-24 10:35 | XR_ITS ---
PROCEDURE INFORMATION: Exam: XR Right Humerus Exam date and time: 02/24/2024 10:43 AM Age: 64 years old Clinical indication: Injury or trauma; Fall; Blunt trauma (contusions or hematomas); Arm, upper; Right; Additional info: Fall, injury TECHNIQUE: Imaging protocol: Radiologic exam of the right humerus. Views: 2 or more views. COMPARISON: CR XR SHOULDER RT MIN 2V 02/24/2024 10:43 AM FINDINGS: Bones/joints: Normal. Soft tissues: Normal. IMPRESSION: No acute findings.
--- NOTE | 2024-02-24 10:35 | XR_ITS ---
PROCEDURE INFORMATION: Exam: XR Right Shoulder Exam date and time: 02/24/2024 10:43 AM Age: 64 years old Clinical indication: Injury or trauma; Fall; Blunt trauma (contusions or hematomas); Shoulder; Right; Additional info: Fall, injury TECHNIQUE: Imaging protocol: Radiologic exam of the right shoulder. Views: 2 or more views. COMPARISON: CR XR SHOULDER RT MIN 2V 02/24/2024 10:43 AM FINDINGS: Bones/joints: No acute fracture or dislocation. Degenerative changes at the acromioclavicular joint. Soft tissues: Normal. IMPRESSION: No acute findings.
--- NOTE | 2024-02-24 10:39 | ECG_ITS ---
APPROVED REPORT Exam: Resting ECG HR:99 bpm ECG Measurements Heart Rate 99 AXES MS 202 P 59 QRSd 94 QRS 38 QT 379 T 44 QTc 435 Conclusion SINUS RHYTHM NORMAL ECG Electronically signed by : PAWAN THOMAS, 02/24/2024 15:18:34
[2024-02-24 10:45] LABS: Basophils # 0.1 K/mm3 (0-0.2); Basophils % 0.9 % (0.1-2.0); Eosinophils # 0.1 K/mm3 (0.0-0.4); Eosinophils % 1.6 % (0.1-12.0); Hematocrit 42.6 % (37.0-47.0); Hemoglobin 14.1 g/dL (12.2-16.2); Lymphocytes # 2.6 K/mm3 (0.7-4.5); Lymphocytes % 29.7 % (10-50); Mean Corpuscular HGB Conc 33.1 g/dL (31.8-35.4); Mean Corpuscular Hemoglobin 29.4 pg (27.0-31.2); Mean Platelet Volume 8.7 fl (7.4-10.4); Monocytes # 0.6 K/mm3 (0.1-1.0); Monocytes % 7.4 % (1.7-9.3); Neutrophils # 5.2 K/mm3 (1.8-7.8); Neutrophils % 60.3 % (37.0-80.0); Platelet Count 349 K/mm3 (142-424); Red Blood Count 4.79 M/mm3 (4.20-5.40); Red Cell Distribution Width 13.2 % (11.5-17.5); White Blood Count 8.6 K/mm3 (4.8-10.8)
[2024-02-24 10:46] LABS: Chloride 95 mmol/L (98-107); Sodium 135 mmol/L (136-145)
[2024-02-24] MEDS: LACTATED RINGERS 1000ML 1,000 ML 999 ML IV (10:48)
[2024-02-24 10:49] LABS: Alanine Aminotransferase 38 U/L (12-78); Aspartate Amino Transferase 37 U/L (14-36); Blood Urea Nitrogen 16 mg/dl (7-17); Creatinine Clearance Estimated 51 mL/min (50-200); Estimated Glomerular Filt Rate 50 ml/min (>60); GFR (African American) 60 ML/MIN (>60)
[2024-02-24 10:50] LABS: Alkaline Phosphatase 76 U/L (38-126); Bilirubin,Total 0.5 mg/dl (0.2-1.3); Calcium 8.8 mg/dl (8.4-10.2); Glucose 182 mg/dl (74-100); Total Protein,Serum 6.8 g/dl (6.3-8.2)
[2024-02-24 10:55] LABS: Potassium 2.2 mmoL/L (3.5-5.1)
--- NOTE | 2024-02-24 10:55 | PC.NURSE ---
aware of potassium of 2.2
[2024-02-24 10:59] LABS: Magnesium 1.8 mg/dl (1.6-2.3)
[2024-02-24 11:00] LABS: Anion Gap 16.2 mEq/L (5-15); Carbon Dioxide 26 mmol/L (22.0-30.0)
[2024-02-24 11:11] LABS: Albumin/Globulin Ratio 1.4 (1.1-1.8); Globulin 2.8 g/dL (1.3-3.2)
[2024-02-24 11:23] LABS: Troponin I < 0.01 ng/ml (0.00-0.034)
[2024-02-24] MEDS: POTASSIUM CHLORIDE 20MEQ/15ML UDC 40 MEQ PO (11:25)
[2024-02-24] MEDS: KCl 10mEq/100ml 100 ML 100 MEQ IV (11:25)
[2024-02-24 11:30] LABS: Thyroid Stimulating Hormone 2.24 uIU/mL (0.465-4.68)
--- NOTE | 2024-02-24 11:58 | PC.NURSE ---
Dr. Zacarias at BS to speak with pt
--- NOTE | 2024-02-24 12:00 | PC.NURSE ---
Dr. Zacarias speaking with Dr. Junior about possible admission
--- NOTE | 2024-02-24 12:02 | PC.NURSE ---
HS aware of admission.
--- NOTE | 2024-02-24 12:17 | PC.NURSE ---
report called to turner on second floor
--- NOTE | 2024-02-24 12:34 | PC.NURSE ---
arrived by w/c from ED
[2024-02-24] MEDS: KCl 20mEq/100ml 100 ML 50 MEQ IV (12:51)
--- NOTE | 2024-02-24 14:05 | HMH.PTEV ---
Physical Therapy Evaluation Rehab PT IP Evaluation Start: 02/24/24 12:03 Freq: ONCE Status: Active Protocol: Document 02/24/24 14:00 PHODanielleBIBIANA (Rec: 02/24/24 14:05 PHORNE [id number]) Subjective/History History History 64 yowf adm to [facility] with possible seizure activity with syncope and hypokalemia. She has PMH of tachycardia and L RAMAKRISHNA. She reports she lives with her sons, 15 ALMITA the home , and she generally uses a cane for all mobility at baseline. Subjective Subjective Pt reports feeling much better since admission, no c/o other than general fatigue. She agrees to mobility assessment this pm. New diagnosis of cancer in past 12 No months? Rehab PT IP Eval Objective Appearance Patient Behavior Appropriate Patient Orientation Person,Place,Time Difficulty following instructions none Speech Pattern Clear Ambulation Patient Able to Ambulate Yes Ambulation Observation IP General Gait Pattern Observation Antalgic Gait,Shuffling Step Ambulation Distance (feet) 15 Ambulation Assistive Device None Ambulation Ability Minimal x 1 (25% assist) Balance Ability to Arise Able, uses arms to help Sitting Balance Steady, safe Standing Balance Steady, wide stance Dynamic Sitting Balance Ability Good Dynamic Standing Balance Ability Fair Transfers Bed Transfer Ability Minimal x 1 (25% assist) Chair Transfer Ability Minimal x 1 (25% assist) Sit to Stand Bed Transfer Ability Minimal x 1 (25% assist) Sit to Stand Chair Transfer Ability Minimal x 1 (25% assist) Rehab PT IP prob,goals,plan Problems Date of Evaluation: 02/24/24 PT IP Problems Bed Mobility,Transfers,Gait Rehab Potential Rehab Potential Good Plan PT Intervention Plan Bed Mobility,Transfers,Self care,Therapeutic Exercise PT Plan Frequency Daily Duration LOS Discharge Goals Bed Transfer Ability Contact Guard/Hand Hold Sit to Stand Chair Transfer Ability Contact Guard/Hand Hold Ambulation Assistive Device Rolling Walker Ambulation Distance (feet) 25 Discharge Plan PT Discharge Plan Pt is currently appropriate to return home once medically stable for d/c. Recommend home health therapy upon d/c. Skilled therapy is indicated to return pt to OF with increased strength, improved transfers and to prevent further falls. Eval Complexity Eval Charge Codes 54110 - High Complexity PHYSICIAN CERTIFICATION: I certify the specified therapy services for Yoly Olivier are required, authorized, and reviewed every 30 days.
[2024-02-24 14:13] LABS: Troponin I 0.02 ng/ml (0.00-0.034)
--- NOTE | 2024-02-24 14:35 | EXP.HP ---
History of Present Illness *Admission Date: 02/24/24 *Reason for visit:: seizure like activity, weakness *History of present illness: Ms. Olivier is a 64-year-old female with reported history of seizure disorder, hypertension who presented to the ER after having an episode at home where she fell and does not remember what happened. Remembers walking in the house after taking her dog out. Then woke up to EMS being there. Her sons heard her fall and called EMS because she fell behind the door, was in a weird position, they thought she had a seizure. Complains of some pain in her right hip and right shoulder. Is back to baseline mentation upon arrival to the ER. She is amnestic to the event, reports to me that she urinated at home. Did not bite her tongue however. Is supposed to be on Keppra twice daily 500 mg and reports taking this regularly. This is her third or fourth seizure in the past several years that she recalls. Previously seen by Dr. Lagunas but has not seen her in over a year. Denies any alcohol use. Does report she smokes marijuana nightly. On workup in the ER, relatively unremarkable other than potassium level of 2.2. Given her weakness, seizure-like episode, and low potassium, medicine consulted for admission and further management On evaluation after arriving to the floor, she complains of some mild shortness of breath and weakness over the past several weeks. Denies any chest pain, is alert and oriented x 3. Mild nausea but no emesis. Has not had a bowel movement in several days per her report. Stable on room air. [facility] Disclaimer: The information contained in this section may have been updated after the patient was seen, as this information can be updated by other users. Medical History (Updated 02/24/24 @ 14:42 by Dharmesh Junior MD) Hypertension Encounter for colorectal cancer screening Encounter for pre-operative cardiovascular clearance Edema Sinus tachycardia Abnormal electrocardiography Surgical History H/O tubal ligation History of left hip replacement Family History No significant family history Social History Smoking Status: Former smoker second hand exposure: Yes alcohol intake: never substance use type: marijuana current occupational status: disabled Travel in the last 8 weeks: [place] the [place] household members: children housing: house current occupational exposures/hazards: No Review of Systems Review of Systems Review of systems (narrative): 14 point review of systems performed, pertinent positives and negatives as per HPI Meds Home Medications and Allergies Home Medications ?Medication ?Instructions ?Recorded ?Confirmed ?Type cholecalciferol (vitamin D3) 25 25 mcg .Route .COMPLEX #30 tabs 02/13/24 02/24/24 Rx mcg (1,000 unit) tablet hydrochlorothiazide 25 mg tablet 25 mg PO DAILY #30 tabs 02/17/24 02/24/24 Rx meclizine 25 mg tablet 25 mg PO BID PRN dizziness #20 tabs 02/19/24 02/24/24 Rx cholecalciferol (vitamin D3) 1,250 1,250 mcg PO WEEKLY 02/24/24 02/24/24 History mcg (50,000 unit) capsule levetiracetam 500 mg tablet 500 mg PO DAILY 02/24/24 02/24/24 History metoprolol succinate 25 mg 25 mg PO DAILY 02/24/24 02/24/24 History tablet,extended release 24 hr New Prescriptions to Start Prescriptions: Allergies Allergy/AdvReac Type Severity Reaction Status Date / Time latex Allergy Intermediate Rash Verified 02/24/24 12:37 Exam Data for Last 24 hours Vital signs and Labs for Last 24 Hours: Temp Pulse Resp BP Pulse Ox O2 Del Method 98.7 F 95 H 15 139/74 99 Room Air 02/24/24 12:29 02/24/24 12:43 02/24/24 12:29 02/24/24 12:29 02/24/24 12:28 02/24/24 12:29 Laboratory Results - last 24 hr 02/24/24 10:21: WBC 8.6, RBC 4.79, Hgb 14.1, Hct 42.6, MCV 89.0, MCH 29.4, MCHC 33.1, RDW 13.2, Plt Count 349, MPV 8.7, Neut % (Auto) 60.3, Lymph % (Auto) 29.7, [place] % (Auto) 7.4, Eos % (Auto) 1.6, Baso % (Auto) 0.9, Neut # (Auto) 5.2, Lymph # (Auto) 2.6, [place] # (Auto) 0.6, Eos # (Auto) 0.1, Baso # (Auto) 0.1, Sodium 135 L, Potassium 2.2 L*, Chloride 95 L, Carbon Dioxide 26, Anion Gap 16.2 H, BUN 16, Creatinine 1.10 H, Estimated Creat Clear 51, Estimated GFR 50 L, Est GFR ( Amer) 60, Glucose 182 H, Calcium 8.8, Magnesium 1.8, Total Bilirubin 0.5, AST 37 H, ALT 38, Alkaline Phosphatase 76, Troponin I < 0.01, Total Protein 6.8, Albumin 4.0, Globulin 2.8, Albumin/Globulin Ratio 1.4, TSH 2.24 02/24/24 13:35: Troponin I 0.02 I & O for Last 24 hours: Intake & Output 02/21/24 02/22/24 02/23/24 02/24/24 23:59 23:59 23:59 23:59 Output Total 0 / 0 Balance 0 / 0 Weight 68.946 kg Constitutional Constitutional: no acute distress, average body habitus, chronically ill appearing and cooperative *Routine HEENT Exam Head: Present normocephalic Eye: Present EOMI and PERRL ENT: Present mucous membranes moist *Routine Neck Exam Neck: Present supple; Absent lymphadenopathy *Routine Respiratory Exam Respiratory: Present CTA bilaterally; Absent rhonchi, wheezes or crackles *Routine Cardiovascular Exam Cardiovascular: Present RRR *Routine Abdominal Exam Abdominal: Present soft and normoactive bowel sounds; Absent tenderness *Routine Rectal Exam Rectal:: deferred *Routine Genitalia Exam Genitalia:: deferred *Routine Extremities Exam Extremities: Absent cyanosis, clubbing or edema *Routine Skin Exam Skin: Present intact and warm; Absent rash *Routine Neurological Exam Neurological: Present alert, oriented X3 and moving all extremities; Absent altered mental status Assessment and Plan *Assessment and plan (1) Acute hypokalemia: Status: Acute Category: Medical Code(s): E87.6 - Hypokalemia (2) Seizure disorder: Status: Chronic Category: Medical Code(s): G40.909 - Epilepsy, unspecified, not intractable, without status epilepticus (3) Syncope: Status: Acute Category: Medical Code(s): R55 - Syncope and collapse (4) Overweight (BMI 25.0-29.9): Status: Acute Category: Medical Code(s): E66.3 - Overweight (5) Hypertension: Status: Acute Category: Medical Code(s): I10 - Essential (primary) hypertension Plan 64-year-old female with history of seizure disorder and hypertension, had an episode at home that was unwitnessed. Concern for seizure activity. Discussed case with ER physician, request admission for treatment of her hypokalemia and monitoring for further seizure activity. Medicine agreed to admit for further management. Receiving IV and oral potassium. Discussed increasing her Keppra. States she has not had a bowel movement in several days either. Problems addressed as follows: Seizure-like activity -On Keppra 500 mg twice daily, will increase to 750 mg twice daily -Needs follow-up with neurology for further evaluation and adjustment of medications -Valium 5 mg as needed if has repeat seizure episode for more than 5-minute Hypokalemia: Potassium levels at 2.2 on admission. Replacing aggressively with both oral and IV. Will repeat labs this afternoon at 8 PM. Repeat potassium and magnesium level pending. Repeat CBC, CMP, magnesium ordered for the morning Kidney function normal with BUN 16, creatinine 1.1. Hypertension: Continue home metoprolol 25 mg daily, holding HCTZ in the setting of hypokalemia Full code Regular diet
[2024-02-24] MEDS: POTASSIUM CHLORIDE 20 MEQ, LIDOCAINE HCL/PF 3 ML in 0.9 % SODIUM CHLORIDE 100 ML 56.5 MEQ IV (14:38)
[2024-02-24] MEDS: POLYETHYLENE GLYCOL 3350 17 GM PACKET PO (15:38)
--- NOTE | 2024-02-24 17:32 | PC.NURSE ---
pt is sitting up in bed upon request set up to eat supper. call light is within reach
[2024-02-24 17:47] LABS: Troponin I 0.02 ng/ml (0.00-0.034)
--- NOTE | 2024-02-24 17:57 | PC.NURSE ---
patient hasa been alert and oriented. vss. seizure pads on bed rails and son has stayed at bs. pt made aware to call for staff before getting up, mobility has been stand by assist. pt was getting 20meq potassium and only received half of the first bag due to pt c/o burning of my arm . made blanca aware and he ordered the second 20 meq bag of potassium with lidocaine. pt had no c/o with it. cb and personal items within reach, son still at bs, pt has no questions or concerns at this time..
[2024-02-24] MEDS: levETIRAcetam 500 MG TABLET 750 MG PO (20:09)
[2024-02-24] MEDS: POTASSIUM CHLORIDE 20MEQ TAB 40 MEQ PO (20:10)
[2024-02-24] MEDS: SENNOSIDES 8.6MG/DOCUSATE 50MG TABLET 1 TAB PO (20:11)
[2024-02-24 20:29] LABS: Anion Gap 9.4 mEq/L (5-15); Blood Urea Nitrogen 15 mg/dl (7-17); Calcium 8.8 mg/dl (8.4-10.2); Carbon Dioxide 31 mmol/L (22.0-30.0); Chloride 99 mmol/L (98-107); Creatinine Clearance Estimated 61 mL/min (50-200); Estimated Glomerular Filt Rate 72 ml/min (>60); GFR (African American) 87 ML/MIN (>60); Glucose 143 mg/dl (74-100); Magnesium 1.9 mg/dl (1.6-2.3); Sodium 137 mmol/L (136-145)
[2024-02-24 20:37] LABS: Potassium 2.4 mmoL/L (3.5-5.1)
[2024-02-24 22:00] LABS: Amphetamine/Metha Screen,Urine Negative ng/ml (<1000); Barbiturates Screen,Urine Negative ng/ml (<200)
[2024-02-24 22:01] LABS: Benzodiazepines Screen,Urine Negative ng/ml (<200)
[2024-02-24 22:02] LABS: Cannabinoid Screen,Urine Positive ng/ml (<50); Cocaine Screen,Urine Negative ng/ml (<300)
[2024-02-24 22:03] LABS: Methadone Screen,Urine Negative ng/ml (<300)
[2024-02-24 22:04] LABS: Opiate Screen,Urine Negative ng/ml (<300); Phencyclidine Screen,Urine Negative ng/ml (<25)
[2024-02-24] MEDS: MILK OF MAGNESIA 30ML UDC 30 ML PO (23:16)
[2024-02-25] VITALS: BP 126/69; PULSE 83; RESP 16; TEMP 37.4; O2SAT 97
[2024-02-25] MEDS: ACETAMINOPHEN 325MG TAB 650 MG PO (03:35)
[2024-02-25 04:00] VITALS: PULSE 72; BMI 29.0
--- NOTE | 2024-02-25 04:57 | PC.NURSE ---
no snycopial episode or seizure activity. noted. pt alert and oriented x4. pt reports constipation. provider made aware. mom ordered and administered. abd soft, positive bowel sounds
[2024-02-25 08:00] VITALS: BP 144/76; PULSE 84; RESP 16; TEMP 36.8; O2SAT 84
[2024-02-25 08:02] LABS: Basophils # 0.1 K/mm3 (0-0.2); Basophils % 1.3 % (0.1-2.0); Eosinophils # 0.1 K/mm3 (0.0-0.4); Eosinophils % 1.8 % (0.1-12.0); Hematocrit 38.4 % (37.0-47.0); Hemoglobin 12.7 g/dL (12.2-16.2); Lymphocytes % 32.9 % (10-50); Mean Corpuscular HGB Conc 33.1 g/dL (31.8-35.4); Mean Corpuscular Hemoglobin 29.2 pg (27.0-31.2); Mean Corpuscular Volume 88.3 fl (81-99); Mean Platelet Volume 8.6 fl (7.4-10.4); Monocytes # 0.5 K/mm3 (0.1-1.0); Neutrophils # 3.5 K/mm3 (1.8-7.8); Neutrophils % 56.1 % (37.0-80.0); Platelet Count 292 K/mm3 (142-424); Red Blood Count 4.35 M/mm3 (4.20-5.40); Red Cell Distribution Width 13.4 % (11.5-17.5); White Blood Count 6.2 K/mm3 (4.8-10.8)
[2024-02-25 08:16] LABS: Alanine Aminotransferase 20 U/L (12-78); Albumin Level 3.1 g/dl (3.5-5.0); Albumin/Globulin Ratio 1.2 (1.1-1.8); Alkaline Phosphatase 64 U/L (38-126); Aspartate Amino Transferase 27 U/L (14-36); Bilirubin,Total 0.3 mg/dl (0.2-1.3); Blood Urea Nitrogen 15 mg/dl (7-17); Calcium 8.6 mg/dl (8.4-10.2); Carbon Dioxide 32 mmol/L (22.0-30.0); Chloride 99 mmol/L (98-107); Creatinine Clearance Estimated 63 mL/min (50-200); Estimated Glomerular Filt Rate 100 ml/min (>60); GFR (African American) 121 ML/MIN (>60); Globulin 2.6 g/dL (1.3-3.2); Glucose 105 mg/dl (74-100); Magnesium 2.2 mg/dl (1.6-2.3); Sodium 136 mmol/L (136-145); Total Protein,Serum 5.7 g/dl (6.3-8.2)
[2024-02-25] MEDS: SENNOSIDES 8.6MG/DOCUSATE 50MG TABLET 1 TAB PO (08:49)
[2024-02-25] MEDS: POTASSIUM CHLORIDE 20MEQ TAB 40 MEQ PO (08:49)
[2024-02-25] MEDS: METOPROLOL SUCCINATE XL 25MG TABLET 25 MG PO (08:49)
[2024-02-25] MEDS: levETIRAcetam 500 MG TABLET 750 MG PO (08:49)
--- NOTE | 2024-02-25 10:03 | EXP.DC.SUM ---
General Admission date:: 02/24/24 Discharge date: 02/25/24 HPI HPI HPI: Ms. Olivier is a 64-year-old female with reported history of seizure disorder, hypertension who presented to the ER after having an episode at home where she fell and does not remember what happened. Remembers walking in the house after taking her dog out. Then woke up to EMS being there. Her sons heard her fall and called EMS because she fell behind the door, was in a weird position, they thought she had a seizure. Complains of some pain in her right hip and right shoulder. Is back to baseline mentation upon arrival to the ER. She is amnestic to the event, reports to me that she urinated at home. Did not bite her tongue however. Is supposed to be on Keppra twice daily 500 mg and reports taking this regularly. This is her third or fourth seizure in the past several years that she recalls. Previously seen by Dr. Lagunas but has not seen her in over a year. Denies any alcohol use. Does report she smokes marijuana nightly. On workup in the ER, relatively unremarkable other than potassium level of 2.2. Given her weakness, seizure-like episode, and low potassium, medicine consulted for admission and further management On evaluation after arriving to the floor, she complains of some mild shortness of breath and weakness over the past several weeks. Denies any chest pain, is alert and oriented x 3. Mild nausea but no emesis. Has not had a bowel movement in several days per her report. Stable on room air. Hospital Course Hospital Course Hospital Course: 64-year-old female with history of seizure disorder and hypertension, had an episode at home that was unwitnessed. Concern for seizure activity. Discussed case with ER physician, request admission for treatment of her hypokalemia and monitoring for further seizure activity. Medicine agreed to admit for further management. Treated with IV and oral potassium replacement. Showing gradual improvement. Potassium 3.0 on morning of discharge, magnesium 2.2. Will continue potassium supplementation at discharge. No further seizure activity. Dose adjusted for her Keppra. Needs follow-up with PCP and neurology as an outpatient. Stable to discharge home. Problems addressed as follows: Seizure-like activity -History of seizure disorder. On Keppra 500 mg twice daily at home. Given her activity, increased Keppra to 750 mg twice daily. Has not seen neurology in over a year. Would benefit from follow-up for routine management. No benzodiazepines needed during admission. Baseline mentation by the time of admission. Hypokalemia: Potassium levels at 2.2 on admission. Replaced aggressively with oral and IV. Improved to 3.0 by morning of discharge. Magnesium normal at 2.2. Kidney function and electrolytes normal with BUN 15, creatinine 0.6. Needs repeat labs in 1 week to monitor improvement and potassium. Discharged home on potassium supplementation 40 mEq daily. Suspect secondary to loss from side effect of medications. Will replace as ordered. Okay to resume HCTZ. If continues to drop with repletion, would hold HCTZ in the outpatient setting. Hypertension: Continue home metoprolol 25 mg daily, HCTZ Exam Data for Last 24 hours Vital signs and Labs for Last 24 Hours: Temp Pulse Resp BP Pulse Ox O2 Del Method 98.3 F 84 16 144/76 H 84 L Room Air 02/25/24 08:00 02/25/24 08:00 02/25/24 08:00 02/25/24 08:00 02/25/24 08:00 02/25/24 08:00 Laboratory Results - last 24 hr 02/24/24 10:21: WBC 8.6, RBC 4.79, Hgb 14.1, Hct 42.6, MCV 89.0, MCH 29.4, MCHC 33.1, RDW 13.2, Plt Count 349, MPV 8.7, Neut % (Auto) 60.3, Lymph % (Auto) 29.7, Garvin % (Auto) 7.4, Eos % (Auto) 1.6, Baso % (Auto) 0.9, Neut # (Auto) 5.2, Lymph # (Auto) 2.6, Garvin # (Auto) 0.6, Eos # (Auto) 0.1, Baso # (Auto) 0.1, Sodium 135 L, Potassium 2.2 L*, Chloride 95 L, Carbon Dioxide 26, Anion Gap 16.2 H, BUN 16, Creatinine 1.10 H, Estimated Creat Clear 51, Estimated GFR 50 L, Est GFR ( Amer) 60, Glucose 182 H, Calcium 8.8, Magnesium 1.8, Total Bilirubin 0.5, AST 37 H, ALT 38, Alkaline Phosphatase 76, Troponin I < 0.01, Total Protein 6.8, Albumin 4.0, Globulin 2.8, Albumin/Globulin Ratio 1.4, TSH 2.24 02/24/24 13:35: Troponin I 0.02 02/24/24 16:45: Troponin I 0.02 02/24/24 20:10: Sodium 137, Potassium 2.4 L*, Chloride 99, Carbon Dioxide 31 H, Anion Gap 9.4, BUN 15, Creatinine 0.80 D, Estimated Creat Clear 61, Estimated GFR 72, Est GFR ( Amer) 87 D, Glucose 143 H D, Calcium 8.8, Magnesium 1.9 02/24/24 21:43: Urine Opiates Screen Negative, Urine Methadone Screen Negative, Ur Barbituates Screen Negative, Ur Phencyclidine Scrn Negative, Ur Amphetamines Screen Negative, U Benzodiazepines Scrn Negative, Urine Cocaine Screen Negative, U Marijuana (THC) Screen Positive H 02/25/24 06:18: WBC 6.2 D, RBC 4.35, Hgb 12.7, Hct 38.4, MCV 88.3, MCH 29.2, MCHC 33.1, RDW 13.4, Plt Count 292, MPV 8.6, Neut % (Auto) 56.1, Lymph % (Auto) 32.9, Garvin % (Auto) 8.0, Eos % (Auto) 1.8, Baso % (Auto) 1.3, Neut # (Auto) 3.5, Lymph # (Auto) 2.0, Garvin # (Auto) 0.5, Eos # (Auto) 0.1, Baso # (Auto) 0.1, Sodium 136, Potassium 3.0 L D, Chloride 99, Carbon Dioxide 32 H, Anion Gap 8.0, BUN 15, Creatinine 0.60 D, Estimated Creat Clear 63, Estimated GFR 100, Est GFR ( Amer) 121 D, Glucose 105 H D, Calcium 8.6, Magnesium 2.2 D, Total Bilirubin 0.3, AST 27 D, ALT 20 D, Alkaline Phosphatase 64, Total Protein 5.7 L, Albumin 3.1 L D, Globulin 2.6, Albumin/Globulin Ratio 1.2 I & O for Last 24 hours: Intake & Output 02/22/24 02/23/24 02/24/24 02/25/24 23:59 23:59 23:59 23:59 Intake Total 240 / 240 440 / 440 Output Total 0 / 0 0 / 0 Balance 240 / 240 440 / 440 Weight 68.946 kg 71.532 kg Constitutional Constitutional: no acute distress, obese, chronically ill appearing and cooperative *Routine HEENT Exam Head: Present normocephalic Eye: Present EOMI and PERRL ENT: Present mucous membranes moist *Routine Neck Exam Neck: Present supple; Absent lymphadenopathy *Routine Respiratory Exam Respiratory: Present CTA bilaterally; Absent respiratory distress, rhonchi, stridor, wheezes or crackles *Routine Cardiovascular Exam Cardiovascular: Present RRR *Routine Abdominal Exam Abdominal: Present soft and normoactive bowel sounds; Absent tenderness *Routine Rectal Exam Patient deferred: visual exam *Routine Exam Patient deferred: external exam *Routine Extremities Exam Extremities: Absent cyanosis, clubbing or edema *Routine Skin Exam Skin: Present intact and warm; Absent rash *Routine Neurological Exam Neurological: Present alert, oriented X3 and moving all extremities; Absent altered mental status Results Data Completed and Pending Labs on day of discharge: Labs from last 24 hours 02/25/24 02/24/24 02/24/24 06:18 21:43 20:10 WBC 6.2 D RBC 4.35 Hgb 12.7 Hct 38.4 MCV 88.3 MCH 29.2 MCHC 33.1 RDW 13.4 Plt Count 292 MPV 8.6 Neut % (Auto) 56.1 Lymph % (Auto) 32.9 Garvin % (Auto) 8.0 Eos % (Auto) 1.8 Baso % (Auto) 1.3 Neut # (Auto) 3.5 Lymph # (Auto) 2.0 Garvin # (Auto) 0.5 Eos # (Auto) 0.1 Baso # (Auto) 0.1 Sodium 136 137 Potassium 3.0 L D 2.4 L* Chloride 99 99 Carbon Dioxide 32 H 31 H Anion Gap 8.0 9.4 BUN 15 15 Creatinine 0.60 D 0.80 D Estimated Creat Clear 63 61 Estimated GFR 100 72 Est GFR ( Amer) 121 D 87 D Glucose 105 H D 143 H D Calcium 8.6 8.8 Magnesium 2.2 D 1.9 Total Bilirubin 0.3 AST 27 D ALT 20 D Alkaline Phosphatase 64 Troponin I Total Protein 5.7 L Albumin 3.1 L D Globulin 2.6 Albumin/Globulin Ratio 1.2 TSH Urine Opiates Screen Negative Urine Methadone Screen Negative Ur Barbituates Screen Negative Ur Phencyclidine Scrn Negative Ur Amphetamines Screen Negative U Benzodiazepines Scrn Negative Urine Cocaine Screen Negative U Marijuana (THC) Screen Positive H 02/24/24 02/24/24 02/24/24 16:45 13:35 10:21 WBC 8.6 RBC 4.79 Hgb 14.1 Hct 42.6 MCV 89.0 MCH 29.4 MCHC 33.1 RDW 13.2 Plt Count 349 MPV 8.7 Neut % (Auto) 60.3 Lymph % (Auto) 29.7 Garvin % (Auto) 7.4 Eos % (Auto) 1.6 Baso % (Auto) 0.9 Neut # (Auto) 5.2 Lymph # (Auto) 2.6 Garvin # (Auto) 0.6 Eos # (Auto) 0.1 Baso # (Auto) 0.1 Sodium 135 L Potassium 2.2 L* Chloride 95 L Carbon Dioxide 26 Anion Gap 16.2 H BUN 16 Creatinine 1.10 H Estimated Creat Clear 51 Estimated GFR 50 L Est GFR ( Amer) 60 Glucose 182 H Calcium 8.8 Magnesium 1.8 Total Bilirubin 0.5 AST 37 H ALT 38 Alkaline Phosphatase 76 Troponin I 0.02 0.02 < 0.01 Total Protein 6.8 Albumin 4.0 Globulin 2.8 Albumin/Globulin Ratio 1.4 TSH 2.24 Urine Opiates Screen Urine Methadone Screen Ur Barbituates Screen Ur Phencyclidine Scrn Ur Amphetamines Screen U Benzodiazepines Scrn Urine Cocaine Screen U Marijuana (THC) Screen DS: Diagnosis Discharge Diagnosis (1) Acute hypokalemia: Status: Acute Code(s): E87.6 - Hypokalemia (2) Seizure disorder: Status: Chronic Code(s): G40.909 - Epilepsy, unspecified, not intractable, without status epilepticus (3) Syncope: Status: Acute Code(s): R55 - Syncope and collapse (4) Overweight (BMI 25.0-29.9): Status: Acute Code(s): E66.3 - Overweight (5) Hypertension: Status: Acute Code(s): I10 - Essential (primary) hypertension Meds Home Medications and Allergies Home Medications ?Medication ?Instructions ?Recorded ?Confirmed ?Type cholecalciferol (vitamin D3) 25 25 mcg .Route .COMPLEX #30 tabs 02/13/24 02/24/24 Rx mcg (1,000 unit) tablet hydrochlorothiazide 25 mg tablet 25 mg PO DAILY #30 tabs 02/17/24 02/24/24 Rx meclizine 25 mg tablet 25 mg PO BID PRN dizziness #20 tabs 02/19/24 02/24/24 Rx cholecalciferol (vitamin D3) 1,250 1,250 mcg PO WEEKLY 02/24/24 02/24/24 History mcg (50,000 unit) capsule metoprolol succinate 25 mg 25 mg PO DAILY 02/24/24 02/24/24 History tablet,extended release 24 hr levetiracetam 500 mg tablet 750 mg (1.5 x 500 mg) PO BID 30 02/25/24 Rx days #90 tabs potassium chloride 20 mEq 40 meq (2 x 20 mEq) PO DAILY 30 02/25/24 Rx tablet,extended days #60 tabs release(part/cryst) (Klor-Con M) sennosides 8.6 mg-docusate sodium 1 tab PO DAILY PRN Constipation 02/25/24 Rx 50 mg tablet (Stimulant Laxative days #30 tabs Plus) New Prescriptions to Start Prescriptions: levetiracetam Dharmesh Junior potassium chloride [Klor-Con M20] Dharmesh Junior sennoisaacs-docusate sodium [Stimulant Laxative Plus] Dharmesh Junior Allergies Allergy/AdvReac Type Severity Reaction Status Date / Time latex Allergy Intermediate Rash Verified 02/24/24 12:37 Discharge Plan Disposition Patient Disposition: Home Health Service Condition: Fair Discharge Order Discharge Orders: Discharge Order (Routine); Ordered 02/25/24 Ordered By: Dharmesh Junior Follow up Plan Follow up with: Bibi Kerr PA [Primary Care Provider] - Enter time for follow up (please call for follow up appointment) Prescriptions/Medication Reconciliation: New sennosides-docusate sodium [Stimulant Laxative Plus] 8.6-50 mg Tablet 1 tab PO DAILY PRN (Reason: Constipation) 30 Days Qty: 30 0RF potassium chloride [Klor-Con M20] 20 mEq Tablet,Er Particles/Crystals 40 meq PO DAILY 30 Days Qty: 60 0RF Continued meclizine 25 mg tablet 25 mg PO BID PRN (Reason: dizziness) Qty: 20 0RF cholecalciferol (vitamin D3) 25 mcg (1,000 unit) tablet 25 mcg .ROUTE .COMPLEX Qty: 30 2RF Rx Instructions: 25 mcg; hydrochlorothiazide 25 mg tablet 25 mg PO DAILY Qty: 30 4RF metoprolol succinate 25 mg tablet extended release 24 hr 25 mg PO DAILY cholecalciferol (vitamin D3) 1,250 mcg (50,000 unit) capsule 1,250 mcg PO WEEKLY Rx Instructions: TAKE ONE CAPSULE BY MOUTH EVERY WEEK Changed levetiracetam 500 mg tablet 750 mg PO BID 30 Days Qty: 90 0RF Rx Instructions: TAKE ONE TABLET BY MOUTH 2 TIMES A DAY Problem Reconciliation Problems Reviewed?: Yes Patient Discharge Instructions ACTIVITY: Continue current activity DIET: continue same diet Patient Instructions: DI for Hypokalemia, How to Prevent Falls, Hypokalemia Print Language: Maltese Providers Primary Care Provider: Bibi Kerr Admit Provider: Dharmesh Junior Attending Provider: Dharmesh Junior
--- NOTE | 2024-02-26 07:34 | SW/DCPLANNER ---
Addendum entered by Susu Her 02/26/24 13:32: Meredith shankar/ [facility] stated that services will start this week. Original Note: Patient information/order will be faxed to [facility] this AM. Patient discharged home over the weekend. Per nursing staff patient did not have a preference for home health agency but is agreeable to services.
--- NOTE | 2024-02-29 14:39 | CARE MANAGER ---
Unable to reach patient via phone to discuss recent discharge. VM left with call back information. Call attempted X 2.
== END 2024-02-25 11:09 | disposition home health service (06) ==
LOC: ER 12:02 → 2ND 12:12
PROVIDERS: Admitting Provider Internal Medicine Adolescent Medicine; Emergency Provider Student in an Organized Health Care Education/Training Program; PCP Physician Assistant; Visit Provider Internal Medicine Adolescent Medicine
DX: E87.6 Hypokalemia (principal); G40.909 Epilepsy, unspecified, not intractable, without status epilepticus; R55 Syncope and collapse; E66.3 Overweight; I10 Essential (primary) hypertension; Z68.29 Body mass index [BMI] 29.0-29.9, adult; F12.90 Cannabis use, unspecified, uncomplicated; Z79.899 Other long term (current) drug therapy
CPT/HCPCS: 36415; 70450; 73030; 73060; 80048; 80050; 80053; 80307; 83735; 84443; 84484; 85025; 93005; 97163; 99285; G0378; J3480; J7120

== ENCOUNTER 2024-03-04 09:30 | Outpatient (CLI) | payer MEDICARE, BC, SELFPAY ==
[2024-03-04 20:24] LABS: Alanine Aminotransferase 20 U/L (12-78); Albumin Level 3.8 g/dl (3.5-5.0); Albumin/Globulin Ratio 1.2 (1.1-1.8); Alkaline Phosphatase 80 U/L (38-126); Anion Gap 14.8 mEq/L (5-15); Aspartate Amino Transferase 28 U/L (14-36); Bilirubin,Total 0.4 mg/dl (0.2-1.3); Blood Urea Nitrogen 12 mg/dl (7-17); Calcium 9.6 mg/dl (8.4-10.2); Carbon Dioxide 24 mmol/L (22.0-30.0); Chloride 102 mmol/L (98-107); Estimated Glomerular Filt Rate 100 ml/min (>60); GFR (African American) 121 ML/MIN (>60); Globulin 3.1 g/dL (1.3-3.2); Glucose 100 mg/dl (74-100); Potassium 3.8 mmoL/L (3.5-5.1); Sodium 137 mmol/L (136-145); Total Protein,Serum 6.9 g/dl (6.3-8.2)
[2024-03-07 16:38] LABS: Levetiracetam (Keppra) 27.6 ug/mL (10.0-40.0)
== END 2024-03-04 23:59 | disposition home or self-care (01) ==
LOC: LAB.DROPOF 03-05 14:46
PROVIDERS: PCP Family Medicine; Visit Provider Family Medicine
DX: G40.909 Epilepsy, unspecified, not intractable, without status epilepticus (principal); H81.393 Other peripheral vertigo, bilateral
CPT/HCPCS: 80053; 80177

== ENCOUNTER 2024-03-21 07:54 | Outpatient (CLI) | payer MEDICARE, BC, SELFPAY ==
--- NOTE | 2024-03-21 07:55 | MM_ITS ---
PROCEDURE INFORMATION: Exam: MG Bilateral Screening 3D Mammography Exam date and time: 03/21/2024 7:59 AM Age: 64 years old Clinical indication: Screening exam. TECHNIQUE: Imaging protocol: Bilateral Screening tomosynthesis and 2D mammography including computer-aided detection (CAD) when performed. COMPARISON: MG MM DIG SCREENING MAMM BI W/CAD 10/08/2020 8:07 AM FINDINGS: MAMMOGRAPHY: Breast composition: There are scattered areas of fibroglandular density. Mass: No suspicious masses. Architectural distortion: None. Calcifications: No suspicious calcifications. Asymmetric density: None. Skin thickening: None. Axillary adenopathy: None. IMPRESSION: No mammographic evidence of malignancy. Annual screening is recommended unless otherwise clinically indicated. ASSESSMENT: BI-RADS Category 1: Negative
--- NOTE | 2024-03-21 08:30 | CA_ITS ---
FINAL REPORT TECHNIQUE: Real-time imaging was performed of the extracranial carotid arteries in transverse and longitudinal planes, with color duplex evaluation of blood flow velocity. Spectral analysis was performed. The cervical vertebral arteries were also examined. CLINICAL HISTORY: HTN, EX SMOKER, SOB, SEIZURE COMPARISON: None FINDINGS: NASCET technique is utilized for stenosis evaluation. Right carotid system (centimeters/second): CCA: 134 ICA: 93 ECA: 49 Vertebral artery: Antegrade ICA/CCA ratio: 1.2 Mild plaque is identified at the bifurcation. Left carotid system (centimeters/second): CCA: 95 ICA: 104 ECA: 94 Vertebral artery: Antegrade ICA/CCA ratio: 1.15 Mild plaque is identified at the bifurcation. IMPRESSION: Less than 50% right ICA stenosis. Less than 50% left ICA stenosis. Antegrade flow bilateral vertebral arteries. Reviewed, Interpreted and Dictated by Mika Peres MD Transcribed by Diane Nielson Authenticated and . [facility]
--- NOTE | 2024-03-21 08:30 | CA_ITS ---
APPROVED REPORT EXAM: Comprehensive 2D, Doppler, and color-flow Echocardiogram Music Education Director: Arianne Douglas CRT Ht: 5 ft 2 in Wt: 153lbs BSA: 1.71 BP: 142/88 mmHg Indications: Shortness of Breath, Syncope, ex smoker 2D Dimensions Left Atrium 3.59 cm LVEF (Marcelo's) 62.70 % LVOT 1.68 cm (M/F) 1.5-2.5 LV Volume 60.30 mL LA Volume 32.40 mL LA Volume Index 18.90 mL/m2 (M/F) 16-34 EF AP4 60.90 % EF AP2 64.1 % EF BP 62.7 % GL Strain -22.2 % M-Mode Dimensions RVDd 1.74 cm (0.9-2.6) LVDd 4.11 cm (3.5-5.7) Ao Diam 3.87 cm (2.0-3.7) LVDs 2.68 cm (3.5-5.7) IVSd 1.15 cm (0.6-1.1) PWd 0.56 cm (0.6-1.1) EF (Teich) 64.50% FS 34.80% EDV (Teich) 74.70 mL ESV (Teich) 26.50 mL LV Diastology E Decel Time 261 (160-240 msec) E/A Ratio 0.74 MED E' 6.1 (>= 7 cm/sec) MED A' 13.70 cm/s E'/MED E' Ratio 13.93 (<= 14) LAT E' 6.8 (>= 10 cm/sec) LAT A' 14.20 cm/s E/LAT E' Ratio 12.50 (<= 14) Aortic Valve AoV Peak French. 120.0 (50-130 cm/s) AO Peak GR. 5.80 mmHg Mitral Valve MV E Max French. 85.0 (40-130 cm/s) MV A Velocity 115.0 (40-130 cm/s) E/A Ratio 0.74 MV Decel. Time 261 (160-240 ms) Tricuspid Valve TR P. Velocity 261.00 cm/s RAP Estimate 10.00 mmHg RVSP 37.30 mmHg Left Ventricle The left ventricle is normal size. The left ventricular systolic function is normal. The left ventricular ejection fraction is within the normal range. There is normal left ventricular wall thickness. There is normal LV segmental wall motion. The left ventricular diastolic function is normal. LVEF is 55%. Right Ventricle The right ventricle is normal size. The right ventricular systolic function is normal. Atria Left atrium is mildly dilated. The right atrium size is normal. Color Doppler is indeterminate for interatrial shunt. Aortic Valve The aortic valve opens well. There is no aortic valvular stenosis. Mild aortic regurgitation. Mitral Valve The mitral valve is mildly thickened. Mild mitral regurgitation. Tricuspid Valve The tricuspid valve leaflets are thin and pliable. Trace tricuspid regurgitation. RVSP is 20-25 mmHg. Pulmonic Valve The pulmonary valve is normal in structure. Trace pulmonic regurgitation. Great Vessels The aortic root is normal in size. The ascending aorta is not well-visualized. IVC is normal in size and collapses >50% with inspiration. Pericardium There is no pericardial effusion. Other Information Study Quality: Fair Conclusion Normal biventricular systolic function. Mild LA dilation. Mild MR, mild AI. Color Doppler is indeterminate for interatrial shunt. If clinically necessary, further evaluation is suggested with limited TTE with agitated saline administration (bubble study). Electronically signed by : Ling Peguero MD 03/26/2024 09:32:38
== END 2024-03-21 23:59 | disposition home or self-care (01) ==
LOC: RAD 07:55
PROVIDERS: PCP Family Medicine; Visit Provider Family Medicine
DX: Z12.31 Encounter for screening mammogram for malignant neoplasm of breast (principal); R00.0 Tachycardia, unspecified; R06.00 Dyspnea, unspecified; R42 Dizziness and giddiness
CPT/HCPCS: 77063; 77067; 93306; 93880

== ENCOUNTER 2024-04-01 14:11 | Outpatient (CLI) | payer MEDICARE, BC, SELFPAY ==
--- NOTE | 2024-04-01 14:17 | US_ITS ---
FINAL REPORT CLINICAL HISTORY: thyroid nodule COMPARISON: None FINDINGS: Sonographic images of the thyroid gland were obtained. The right thyroid lobe measures 44 mm. in length. The left thyroid lobe measures 35 mm. in length. The thyroid isthmus measures 2 mm. The echogenicity is normal. Several thyroid calcifications are noted. There are several thyroid nodules. The largest on the right measures 14 x 12 x 9 mm, cystic and solid, isoechoic, TR 2. On the left is a 6 x 5 x 3 mm solid and hypoechoic TR 1 nodule. IMPRESSION: Bilateral thyroid nodules, TR 2 and TR 1, with no follow-up required per TI-RADS criteria. Reviewed, Interpreted and Dictated by Dudley Sagastume III, MD Transcribed by Ekta Michele Authenticated and [facility]
== END 2024-04-01 23:59 | disposition home or self-care (01) ==
LOC: RAD 14:12
PROVIDERS: PCP Family Medicine; Visit Provider Family Medicine
DX: E04.1 Nontoxic single thyroid nodule (principal)
CPT/HCPCS: 76536

== ENCOUNTER 2024-04-11 07:18 | Outpatient (CLI) | payer MEDICARE, BC, SELFPAY ==
--- NOTE | 2024-04-11 07:24 | CT_ITS ---
APPROVED REPORT Sheet Metal Worker Supervisor: CLINICAL INDICATION Chest Pain TECHNIQUE Image Acquisition: A 128 slice MDCT scanner ([employer]) was used for data acquisition. A noncontrast coronary calcium scan was performed. A CT attenuation threshold of 130 Hounsfield units (HU) was used for the detection of calcium in contiguous voxels of 1 sq mm in area to be counted as individual lesions. Bolus tracking in the ascending aorta with a threshold of 180 HU was performed. Immediately afterwards, ECG synchronized cardiac CT was then performed from the cardiac base to apex using retrospective gating with ECG tube current modulation. A total of 85 mL of Isovue 370 mg/mL contrast medium was administered at 5 mL/sec followed by a saline flush using a biphasic injection protocol. A tube voltage of 120 KVp was used. The patient received the following medications prior to the cardiac CT. 50 mg of oral metoprolol 0.8 mg of sublingual nitroglycerin The average heart rate at the time of acquisition was 57 bpm and regular. Image Reconstruction Transaxial images were reconstructed at 0.67 mm slide thickness. Data was reviewed interactively on an advanced workstation capable of 2 and 3-dimensional displays in all conventional reconstruction formats, including multiplanar reformations, maximum intensity projections, curved multiplanar reformations, and volume rendered reconstructions. When applicable, selected routine images describing the relevant coronary anatomy and pathology were saved and sent to PACS. Complications None Technical Quality Overall image quality was good. Coronary artery opacification was adequate. Total DLP (Dose-Length Product) is 1281.4 mGy-cm. The reported value represents the total of one or more individual components during the CT acquisition of this date and at this time, and as such, the same value may appear in more than one CT report depending on the interpreting/reporting physicians. COMPARISON None FINDINGS CT Coronary Calcium Scoring LMA (Left Main Artery) = 37 LAD (Left Anterior Descending) = 36 LCX (Left Coronary Circumflex) = 38 RCA (Right Coronary Artery) = 143 Total Calcium Score = 254 using the AJ-130 method. The observed calcium score of 254 is at 91st percentile for subjects of the same age, sex, and race/ethnicity. The interpretation of the calcium heart score is based on the following continuum*: 0 = no calcified plaque detected (risk of coronary artery disease is very low ??? less than 5%) 1-10 = calcium detected in extremely minimal levels (risk of coronary diseases is still low ??? less than 10%) 11-100 = mild levels of plaque detected with certainty (mild or minimal narrowing of heart arteries is likely) 101-400 = definite,at least moderate levels of plaque detected (relatively high risk of a heart attack within 3-5 years) >401-999 = extensive levels of plaque detected (high risk of heart attack, high levels of vascular disease are present, high likelihood of at least one significant coronary narrowing) *The calcium heart score quantifies the burden of coronary calcification/plaque in the coronary arteries. The calcium heart score is not able to evaluate the presence or burden of non-calcified (i.e. soft) plaque. There is no identifiable calcification in the aortic valve, mitral annulus or mitral valve, pericardium, or myocardium. Coronary CT Angiography The coronary arterial system is right dominant. Quantitative Stenosis Grading: Left Main (LM): The left main originates normally from the left sinus of Valsalva. The LM bifurcates into the left anterior descending artery and left circumflex artery. The LM is patent with no evidence of atherosclerosis. Left Anterior Descending (LAD) and Diagonal Branches: The LAD gives off 2 diagonal branch(es). There is mixed calcified/noncalcified plaque in the proximal LAD segment, with up to 25-49% luminal stenosis. There is no evidence of LAD-myocardial bridge. Left Circumflex (LCX) and Obtuse Marginals (OM): The LCX gives off 2 Obtuse Marginal (OM) branch(es). There is mixed calcified/noncalcified plaque in the proximal LCx segment, with up to 50 to 70% luminal stenosis. Right Coronary Artery (RCA): The RCA originates normally from the right sinus of Valsalva. The RCA gives off a posterior descending artery (PDA) and posterolateral (PL) branches. There is mixed calcified/non-calcified plaque in the ostial, proximal, and mid-RCA segments, with up to 50-70% luminal stenosis in the mid-RCA segment. Non-Coronary Cardiac Findings: Analysis of the left ventricular (LV) structure and function was performed after 3-D reconstruction of the LV from axial images, with user-corrected automatic contouring for assessment of LV volumes and user-defined reconstruction from oblique planes for measurement of 3-D cardiac structure and function. -The left ventricle systolic function is normal. -There is no left atrial appendage filling defect. Two right pulmonary veins and two left pulmonary veins drain normally into the left atrium. -No pericardial thickening or calcification. -Central and branch pulmonary arteries in the [id number] are unremarkable. -Thoracic aorta within the visualized thoracic aortic-branches in the [id number] is unremarkable. Extracardiac Structures No significant extra-cardiac findings. Note, however, that this study is focused on the cardiac findings. IMPRESSION -Presence of coronary calcification with an Agatston score = 254 using the AJ-130 method. -The observed calcium score of 254 is at 91st percentile for subjects of the same age, sex, and race/ethnicity. -Multivessel atherosclerotic coronary disease, with possible evidence of significant flow-limiting atherosclerosis of the mid-RCA (dominant) and proximal LCX segments. -CAD-RADS 3. Management recommendations per ACC/AHA guidelines*, as clinically appropriate. *Recommendations: CAD RADS 0: Reassurance. Consider non-atherosclerotic causes of chest pain. CAD RADS 1: Consider non-atherosclerotic causes of chest pain. Consider preventive therapy and risk factor modification. CAD RADS 2: Consider non-atherosclerotic causes of chest pain. Consider preventive therapy and risk factor modification, particularly for patients with nonobstructive plaque in multiple segments. CAD RADS 3: Consider further functional testing. Consider symptom-guided anti-ischemic and preventive pharmacotherapy as well as risk factor modification per published guideline statements. CAD RADS 4A: Consider further functional testing or invasive coronary angiography with revascularization per published guideline statements. Consider symptom-guided anti-ischemic and preventive pharmacotherapy as well as risk factor modification per published guideline statements. CAD RADS 4B: Invasive coronary angiography recommended with revascularization per published guideline statements. Consider symptom-guided anti-ischemic and preventive pharmacotherapy as well as risk factor modification per published guideline statements. CAD RADS 5: Consider invasive angiography and/or viability assessment with revascularization per published guideline statements. Consider symptom-guided anti-ischemic and preventive pharmacotherapy as well as risk factor modification per published guideline statements. CRITICAL RESULT None COMMUNICATION Per this written report The coronary and cardiac findings of this CCTA were reviewed, reported, and signed by Chuck Peguero MD (Precipitate Washer) Conclusion Electronically signed by : Ling Peguero MD 04/11/2024 13:25:50
[2024-04-11 07:35] VITALS: BMI 28.9
[2024-04-11 07:42] VITALS: BP 114/76; PULSE 64; RESP 18; O2SAT 99
[2024-04-11] MEDS: METOPROLOL TARTRATE 50MG TABLET PO (07:48)
[2024-04-11 08:27] VITALS: BP 140/84; PULSE 67; RESP 18; O2SAT 98
[2024-04-11] MEDS: NITROGLYCERIN 0.4MG SL TABLET SL (08:27)
[2024-04-11 08:30] VITALS: BP 103/58; PULSE 65; RESP 18; O2SAT 99
[2024-04-11 08:35] VITALS: BP 103/51; PULSE 63; RESP 18; O2SAT 98
[2024-04-11 08:45] VITALS: BP 127/68; PULSE 67; RESP 18; O2SAT 99
[2024-04-11] MEDS: 0.9 % SODIUM CHLORIDE 50 ML VIAL IV (08:47)
[2024-04-11] MEDS: IOPAMIDOL-370 (76%);100ML BOTTLE 85 ML IV (08:47)
[2024-04-11] MEDS: SODIUM CHLORIDE 0.9% 10ML SYR (RAD ONLY) 10 ML IV (08:47)
== END 2024-04-11 08:45 | disposition home or self-care (01) ==
PROVIDERS: PCP Nurse Practitioner Family; Visit Provider Nurse Practitioner Family
DX: R06.09 Other forms of dyspnea (principal); I48.0 Paroxysmal atrial fibrillation; R94.31 Abnormal electrocardiogram [ECG] [EKG]; R42 Dizziness and giddiness; I10 Essential (primary) hypertension
CPT/HCPCS: 75574; Q9967

== ENCOUNTER 2024-05-16 07:52 | Day surgery (SDC) | payer MEDICARE, BC, SELFPAY ==
[2024-05-16] VITALS (14 sets, daily range): BP systolic 97–131; BP diastolic 63–93; PULSE 68–81; RESP 18; TEMP 36.9; O2SAT 93–100; BMI 29.2
--- NOTE | 2024-05-16 07:20 | IR_ITS ---
APPROVED REPORT Patient Location: Outpatient Sample Cutter: Frank Lerma RT (R) PROCEDURES Selective coronary angiogram Drug-eluting stent deployment to the proximal and distal dominant right coronary artery in a noncontiguous manner INDICATION Coronary artery disease, Angina pectoris, Abnormal CCTA Informed consent was obtained prior to the procedure. COMPLICATIONS NONE Estimated Blood Loss: LESS THAN 10 ML TECHNIQUE One percent lidocaine used to anesthetize the right anterior aspect of the wrist. The right radial artery was accessed via the Seldinger technique. A 6 Georgian sheath was placed in the right radial artery. 2.5 mg of Verapamil, 800 mcg of nitroglycerin, 1mg Lidocaine and 5000 U Heparin were given through the arterial sheath. The 6 Georgian JL 3 guide catheter was used to perform selective coronary angiogram. At the end of the diagnostic angiogram therapeutic heparin was administered giving a therapeutic ACT and the guide catheter was placed in the right coronary followed by Choice PT extra-support wire placed distally. A 4 mm x 26 mm [place] frontier stent was deployed at 14 amandeep in the distal right coronary reducing the severe stenosis to 0%. Following this an additional 4 mm x 12 mm [place] frontier stent was placed proximally at 16 amandeep reducing the stenosis. A 4 mm x 8 mm noncompliant balloon was then placed back into the midportion of the stent and deployed at 20 and then 24 amandeep to further post dilate. GERSON-3 flow was present down the vessel before and after the procedure at the end the procedure the apparatus was removed the sheath was removed and hemostasis was achieved using TR banding patient was transferred to the postop putting in stable condition ANGIOGRAPHIC RESULTS The left main artery Normal The left anterior descending artery Has proximal 10% luminal irregularities with mid vessel 20% stenoses with an additional 30 to 40% mid vessel stenosis. The entire caliber the LAD is small distal to a large first diagonal artery. The first diagonal artery is large in caliber and bigger in caliber than the LAD and bifurcates. The large caliber diagonal artery has 30 to 40% multiple mid vessel stenoses. The circumflex artery Is nondominant and has proximal 10 to 20% stenosis with additional 20% stenoses in the first obtuse marginal artery The right coronary artery Is large and dominant and has a proximal concentric 40% stenosis with a distal concentric 70% followed by 40% stenosis The BROWN ventriculogram reveals Not performed The left ventricular end-diastolic pressure Not measured IMPRESSION Coronary disease as described above Successful stenting of the proximal and distal dominant right coronary artery in a noncontiguous manner reducing stenoses to 0% with 2 noncontiguous drug-eluting stents PLAN 1. Plavix aspirin and Xarelto for 1 month and discontinue aspirin 2. LDL less than 55 to achieve that high intensity statin 3. Avoidance of tobacco products 4. Risk factor modification Electronically signed by : Josh Paris MD 05/16/2024 10:48:49
[2024-05-16 09:20] LABS: Basophils # 0.1 K/mm3 (0-0.2); Basophils % 1.5 % (0.1-2.0); Eosinophils # 0.2 K/mm3 (0.0-0.4); Eosinophils % 2.9 % (0.1-12.0); Hematocrit 43.6 % (37.0-47.0); Hemoglobin 14.7 g/dL (12.2-16.2); Lymphocytes # 1.7 K/mm3 (0.7-4.5); Lymphocytes % 31.7 % (10-50); Mean Corpuscular HGB Conc 33.7 g/dL (31.8-35.4); Mean Corpuscular Hemoglobin 29.4 pg (27.0-31.2); Mean Corpuscular Volume 87.3 fl (81-99); Mean Platelet Volume 7.7 fl (7.4-10.4); Monocytes # 0.5 K/mm3 (0.1-1.0); Monocytes % 8.5 % (1.7-9.3); Neutrophils % 55.5 % (37.0-80.0); Platelet Count 451 K/mm3 (142-424); Red Cell Distribution Width 13.3 % (11.5-17.5); White Blood Count 5.4 K/mm3 (4.8-10.8)
[2024-05-16 09:24] LABS: Chloride 95 mmol/L (98-107); Sodium 135 mmol/L (136-145)
[2024-05-16 09:28] LABS: Anion Gap 10.7 mEq/L (5-15); Blood Urea Nitrogen 9 mg/dl (7-17); Calcium 9.9 mg/dl (8.4-10.2); Carbon Dioxide 32 mmol/L (22.0-30.0); Creatinine Clearance Estimated 64 mL/min (50-200); Estimated Glomerular Filt Rate 84 ml/min (>60); GFR (African American) 102 ML/MIN (>60); Glucose 99 mg/dl (74-100)
[2024-05-16 09:30] LABS: Potassium 2.7 mmoL/L (3.5-5.1)
[2024-05-16] MEDS: LIDOCAINE 1% 10ML MDV 20 ML IJ (09:59)
[2024-05-16] MEDS: diphenhydrAMINE 50MG/ML VIAL 50 MG IV (10:00)
[2024-05-16] MEDS: HEPARIN 1,000 UNITS/ML 10ML VIAL (CATH LAB) 10000 UNIT IV ×3 (10:00→10:47)
[2024-05-16] MEDS: VERAPAMIL 2.5MG/ML 2ML VIAL 2.5 MG IV (10:00)
[2024-05-16] MEDS: 0.9 % SODIUM CHLORIDE 500 ML 25 ML IV (10:01)
[2024-05-16] MEDS: NITROGLYCERIN 800MCG/8ML SYR (CATH LAB) 800 MCG IA (10:01)
[2024-05-16] MEDS: HEPARIN 1,000 UNITS/500ML NS (CATH LAB) 3000 UNIT IV (10:01)
[2024-05-16] MEDS: CLOPIDOGREL 300MG TABLET 600 MG PO (10:29)
[2024-05-16] MEDS: MIDAZOLAM HCL 1MG/ML 5ML VIAL 1 MG IV (10:35)
[2024-05-16] MEDS: FENTANYL 100MCG/2ML VIAL 50 MCG IV (10:36)
[2024-05-16] MEDS: IOPAMIDOL-370 (76%);100ML BOTTLE 90 ML IV (13:41)
[2024-05-16 13:45] LABS: CATHL Activated Clotting Time 267 SEC (74-125)
== END 2024-05-16 14:30 | disposition home or self-care (01) ==
PROVIDERS: PCP Family Medicine; Visit Provider Internal Medicine
DX: I48.0 Paroxysmal atrial fibrillation (principal); I25.118 Atherosclerotic heart disease of native coronary artery with other forms of angina pectoris; R93.1 Abnormal findings on diagnostic imaging of heart and coronary circulation; R06.09 Other forms of dyspnea; R53.83 Other fatigue; Z79.899 Other long term (current) drug therapy; Z79.01 Long term (current) use of anticoagulants; I10 Essential (primary) hypertension
CPT/HCPCS: 80048; 85025; 85347; 92928; 93454; 99152; 99153; C1725; C1769; C1874; C9600; J1200; J1644; J2250; J3010; Q9967

== ENCOUNTER 2024-05-18 07:53 | Outpatient (CLI) | payer MEDICARE, BC, SELFPAY ==
[2024-05-18 08:18] LABS: Basophils # 0.1 K/mm3 (0-0.2); Basophils % 1.4 % (0.1-2.0); Eosinophils # 0.1 K/mm3 (0.0-0.4); Eosinophils % 1.9 % (0.1-12.0); Hematocrit 40.6 % (37.0-47.0); Hemoglobin 13.2 g/dL (12.2-16.2); Lymphocytes # 1.9 K/mm3 (0.7-4.5); Lymphocytes % 24.6 % (10-50); Mean Corpuscular HGB Conc 32.6 g/dL (31.8-35.4); Mean Corpuscular Hemoglobin 28.2 pg (27.0-31.2); Mean Corpuscular Volume 86.6 fl (81-99); Mean Platelet Volume 7.4 fl (7.4-10.4); Monocytes # 0.5 K/mm3 (0.1-1.0); Monocytes % 6.4 % (1.7-9.3); Neutrophils % 65.7 % (37.0-80.0); Platelet Count 434 K/mm3 (142-424); Red Blood Count 4.68 M/mm3 (4.20-5.40); Red Cell Distribution Width 13.4 % (11.5-17.5); White Blood Count 7.7 K/mm3 (4.8-10.8)
[2024-05-18 08:39] LABS: Chloride 96 mmol/L (98-107)
[2024-05-18 08:40] LABS: Potassium 3.2 mmoL/L (3.5-5.1); Sodium 132 mmol/L (136-145)
[2024-05-18 08:42] LABS: Blood Urea Nitrogen 10 mg/dl (7-17); Estimated Glomerular Filt Rate 100 ml/min (>60); GFR (African American) 121 ML/MIN (>60)
[2024-05-18 08:43] LABS: Anion Gap 11.2 mEq/L (5-15); Calcium 9.2 mg/dl (8.4-10.2); Carbon Dioxide 28 mmol/L (22.0-30.0); Glucose 115 mg/dl (74-100)
== END 2024-05-18 23:59 | disposition home or self-care (01) ==
LOC: LAB 07:54
PROVIDERS: PCP Internal Medicine; Visit Provider Nurse Practitioner Family
DX: R79.9 Abnormal finding of blood chemistry, unspecified (principal); I25.10 Atherosclerotic heart disease of native coronary artery without angina pectoris
CPT/HCPCS: 36415; 80048; 85025

== ENCOUNTER 2024-07-08 10:37 | Outpatient (CLI) | payer MEDICARE, BC, SELFPAY ==
--- NOTE | 2024-07-08 10:59 | XR_ITS ---
FINAL REPORT CLINICAL HISTORY: Right shoulder pain FINDINGS: Right shoulder THREE VIEW FINDINGS: Three views show no evidence of an acute, displaced fracture or dislocation of the visualized bony architecture. The joint spaces appear normal. IMPRESSION: Unremarkable exam. Authenticated and ERN
[2024-07-08 11:47] LABS: Albumin Level 4.1 g/dl (3.5-5.0); Chloride 99 mmol/L (98-107); Potassium 3.4 mmoL/L (3.5-5.1); Sodium 132 mmol/L (136-145)
[2024-07-08 11:49] LABS: Blood Urea Nitrogen 12 mg/dl (7-17)
[2024-07-08 11:50] LABS: Alanine Aminotransferase 16 U/L (12-78); Alkaline Phosphatase 77 U/L (38-126); Anion Gap 5.4 mEq/L (5-15); Aspartate Amino Transferase 25 U/L (14-36); Bilirubin,Direct 0.3 mg/dl (0.0-0.4); Bilirubin,Total 0.3 mg/dl (0.2-1.3); Calcium 9.2 mg/dl (8.4-10.2); Carbon Dioxide 31 mmol/L (22.0-30.0); Cholesterol 147 mg/dl (140-200); Estimated Glomerular Filt Rate 100 ml/min (>60); GFR (African American) 121 ML/MIN (>60); Glucose 117 mg/dl (74-100); Total Protein,Serum 6.4 g/dl (6.3-8.2); Triglycerides 141 mg/dl (30-150); VLDL Cholesterol 28 mg/dL (0-40)
[2024-07-08 11:51] LABS: Chol/HDL Ratio 3.3 (1-3.5); HDL Cholesterol 45 mg/dl (40-60)
[2024-07-08 11:55] LABS: Basophils # 0.1 K/mm3 (0-0.2); Basophils % 1.1 % (0.1-2.0); Eosinophils # 0.2 K/mm3 (0.0-0.4); Eosinophils % 2.1 % (0.1-12.0); Lymphocytes # 1.4 K/mm3 (0.7-4.5); Lymphocytes % 18.5 % (10-50); Mean Corpuscular HGB Conc 33.2 g/dL (31.8-35.4); Mean Corpuscular Hemoglobin 26.2 pg (27.0-31.2); Mean Corpuscular Volume 78.8 fl (81-99); Mean Platelet Volume 8.2 fl (7.4-10.4); Monocytes # 0.6 K/mm3 (0.1-1.0); Monocytes % 7.8 % (1.7-9.3); Neutrophils # 5.4 K/mm3 (1.8-7.8); Neutrophils % 70.5 % (37.0-80.0); Platelet Count 461 K/mm3 (142-424); Red Blood Count 3.43 M/mm3 (4.20-5.40); Red Cell Distribution Width 14.3 % (11.5-17.5); White Blood Count 7.6 K/mm3 (4.8-10.8)
[2024-07-08 12:21] LABS: Thyroid Stimulating Hormone 4.57 uIU/mL (0.465-4.68)
[2024-07-08 13:24] LABS: Free T4 (Free Thyroxine) 1.05 ng/dl (0.78-2.19)
[2024-07-09 14:45] LABS: Iron 31 ug/dL (37-170)
[2024-07-09 14:54] LABS: Total Iron Binding Capacity 471 ug/dL (265-497)
== END 2024-07-08 23:59 | disposition home or self-care (01) ==
LOC: LAB 10:40
PROVIDERS: PCP Family Medicine; Visit Provider Internal Medicine
DX: I48.0 Paroxysmal atrial fibrillation (principal); I25.118 Atherosclerotic heart disease of native coronary artery with other forms of angina pectoris; I10 Essential (primary) hypertension; G40.909 Epilepsy, unspecified, not intractable, without status epilepticus; M25.511 Pain in right shoulder; D64.9 Anemia, unspecified
CPT/HCPCS: 36415; 73030; 80048; 80061; 80076; 83540; 83550; 83735; 84439; 84443; 85025

== ENCOUNTER 2024-07-26 10:30 | Outpatient (CLI) | payer MEDICARE, BC, SELFPAY ==
[2024-07-26 18:04] LABS: Basophils # 0.1 K/mm3 (0-0.2); Basophils % 1.3 % (0.1-2.0); Eosinophils # 0.1 K/mm3 (0.0-0.4); Eosinophils % 2.6 % (0.1-12.0); Hematocrit 24.7 % (37.0-47.0); Hemoglobin 7.4 g/dL (12.2-16.2); Mean Corpuscular Hemoglobin 23.3 pg (27.0-31.2); Mean Corpuscular Volume 77.7 fl (81-99); Mean Platelet Volume 11.3 fl (7.4-10.4); Monocytes # 0.5 K/mm3 (0.1-1.0); Monocytes % 8.7 % (1.7-9.3); Neutrophils # 3.7 K/mm3 (1.8-7.8); Platelet Count 399 K/mm3 (142-424); Red Blood Count 3.18 M/mm3 (4.20-5.40); Red Cell Distribution Width 15.2 % (11.5-17.5); White Blood Count 5.4 K/mm3 (4.8-10.8)
== END 2024-07-26 23:59 | disposition home or self-care (01) ==
LOC: LAB.DROPOF 07-27 09:48
PROVIDERS: PCP Family Medicine; Visit Provider Family Medicine
DX: D64.9 Anemia, unspecified (principal)
CPT/HCPCS: 85025

== ENCOUNTER 2024-08-01 07:53 | Outpatient (CLI) | payer MEDICARE, MEDICAID, SELFPAY ==
[2024-08-01] VITALS (11 sets, daily range): BP systolic 106–126; BP diastolic 57–73; PULSE 76–88; RESP 14–18; TEMP 36.6–36.9; O2SAT 98–100; BMI 28.0
[2024-08-01 08:22] LABS: Basophils # 0.1 K/mm3 (0-0.2); Basophils % 1.3 % (0.1-2.0); Eosinophils # 0.1 K/mm3 (0.0-0.4); Eosinophils % 1.9 % (0.1-12.0); Hematocrit 24.8 % (37.0-47.0); Hemoglobin 7.3 g/dL (12.2-16.2); Lymphocytes # 1.5 K/mm3 (0.7-4.5); Lymphocytes % 23.7 % (10-50); Mean Corpuscular HGB Conc 29.4 g/dL (31.8-35.4); Mean Corpuscular Hemoglobin 21.9 pg (27.0-31.2); Mean Corpuscular Volume 74.5 fl (81-99); Mean Platelet Volume 10.8 fl (7.4-10.4); Monocytes # 0.9 K/mm3 (0.1-1.0); Monocytes % 13.9 % (1.7-9.3); Neutrophils # 3.6 K/mm3 (1.8-7.8); Neutrophils % 58.9 % (37.0-80.0); Platelet Count 287 K/mm3 (142-424); Red Blood Count 3.33 M/mm3 (4.20-5.40); White Blood Count 6.2 K/mm3 (4.8-10.8)
[2024-08-01] MEDS: 0.9 % SODIUM CHLORIDE 250 ML 25 ML IV (10:01)
[2024-08-01] MEDS: diphenhydrAMINE 25MG CAPSULE 25 MG PO (10:02)
[2024-08-01] MEDS: ACETAMINOPHEN 325MG TAB 650 MG PO (10:02)
== END 2024-08-01 14:40 | disposition home or self-care (01) ==
LOC: LAB 07:59 → INF 08:30
PROVIDERS: Physician Assistant; PCP Family Medicine; Visit Provider Family Medicine
DX: D64.9 Anemia, unspecified (principal)
CPT/HCPCS: 36415; 36430; 85025; 86850; P9016

== ENCOUNTER 2024-08-05 07:16 | Day surgery (SDC) | payer MEDICARE, MEDICAID, SELFPAY ==
[2024-08-02 14:03] VITALS: BMI 27.1
[2024-08-05] MEDS: LACTATED RINGERS 1000ML 1,000 ML 25 ML IV (08:16)
[2024-08-05 08:19] VITALS: BP 118/59; PULSE 72; RESP 18; TEMP 37.3; O2SAT 100
--- NOTE | 2024-08-05 08:59 | P.PNANES_ITS ---
[facility] Disclaimer: The information contained in this section may have been updated after the patient was seen, as this information can be updated by other users. Medical History Anemia Right shoulder pain Coronary artery disease Atypical angina Fatigue Abnormal findings on diagnostic imaging of heart and coronary circulation Stage II decubitus ulcer Hypertension Encounter for colorectal cancer screening Encounter for pre-operative cardiovascular clearance Edema Sinus tachycardia Abnormal electrocardiography Surgical History S/P cardiac cath H/O tubal ligation History of left hip replacement Family History Mother Diabetes Melanoma Hypertension Other Family history of diabetes mellitus type II Family history of myocardial infarction Family history of stroke Social History Smoking Status: Former smoker second hand exposure: Yes alcohol intake: never substance use type: marijuana current occupational status: disabled Travel in the last 8 weeks: None household members: children housing: house current occupational exposures/hazards: No Have you lived/traveled outside [place] in past 30 days?: No Contact w/someone who lives/traveled outside US past 30 days?: No Exposure to someone with infectious disease in past 14 days?: No Do you have a fever (greater than 100.4 F or 38 C)?: No Have you tested positive for COVID-19: No Exposed to someone with COVID-19 in past 14 days?: No Do you have a sore throat?: No Do you have a cough?: No Do you have any weakness?: No Do you have any diarrhea?: No Are you experiencing any unusual bleeding?: No Do you have any muscle aches/pain?: No Do you have any abdominal pain?: No Are you experiencing loss of taste or smell?: No [facility] Anesthesia Checklist Patient Identification Patient Identification: Arm Band and Verbal (Name & ) Structural Data Admitted From: Home Planned Operative Procedure/s: EGD/Colonoscopy Consent for Planned Operative Procedure(s) Verified: Yes Verified Documents: Surgical Consent and History and Physical NPO Status Verified Time NPO: 00:00 Additional verifications Anesthesia Reactions: No Hx Blood Transfusions: No Blood Transfusion Reaction: No Airway Assessment Mallampati Score:: Class I C-Spine Mobility Assessed: Yes TMJ Mobility Assessed: Yes Dentition: Edentulous Neurological Assessment Level of Consciousness: Awake Hx Seizures: No Numbness or tingling in extremities: No Anesthesia Plan Anesthesia Risk discussed: Yes Anesthesia Plan: Verified ASA Class: III Anesthesia Type: MAC
--- NOTE | 2024-08-05 09:34 | P.HP_ITS ---
History of Present Illness *Admission Date: 08/05/24 *Reason for visit:: Iron deficiency anemia/rectal bleeding *History of present illness: Mrs. Olivier is a 64-year-old female who is here for diagnostic EGD and colonoscopy secondary to iron deficiency anemia and rectal bleeding. The examination is deemed medically necessary for diagnostic EGD and colonoscopy. The patient has been seen, interviewed and examined prior to the procedure by both myself and the anesthesia provider. [facility] Disclaimer: The information contained in this section may have been updated after the patien t was seen, as this information can be updated by other users. Medical History Anemia Right shoulder pain Coronary artery disease Atypical angina Fatigue Abnormal findings on diagnostic imaging of heart and coronary circulation Stage II decubitus ulcer Hypertension Encounter for colorectal cancer screening Encounter for pre-operative cardiovascular clearance Edema Sinus tachycardia Abnormal electrocardiography Surgical History S/P cardiac cath H/O tubal ligation History of left hip replacement Family History Mother Diabetes Melanoma Hypertension Other Family history of diabetes mellitus type II Family history of myocardial infarction Family history of stroke Social History Smoking Status: Former smoker second hand exposure: Yes alcohol intake: never substance use type: marijuana current occupational status: disabled Travel in the last 8 weeks: None household members: children housing: house current occupational exposures/hazards: No Have you lived/traveled outside US in past 30 days?: No Contact w/someone who lives/traveled outside US past 30 days?: No Exposure to someone with infectious disease in past 14 days?: No Do you have a fever (greater than 100.4 F or 38 C)?: No Have you tested positive for COVID-19: No Exposed to someone with COVID-19 in past 14 days?: No Do you have a sore throat?: No Do you have a cough?: No Do you have any weakness?: No Do you have any diarrhea?: No Are you experiencing any unusual bleeding?: No Do you have any muscle aches/pain?: No Do you have any abdominal pain?: No Are you experiencing loss of taste or smell?: No Other Medical History Have you received the Flu Vaccine for this season: No Have you received the Pneumonia Vaccine: No Review of Systems Review of Systems Review of systems (narrative): Negative *Cardiovascular Comments: Negative *Gastrointestinal Comments: Negative *Genitourinary Comments: Negative *Musculoskeletal Comments: Negative *Neurologic Comments: Negative Meds Home Medications and Allergies Home Medications ?Medication ?Instructions ?Recorded ?Confirmed ?Type metoprolol succinate 50 mg 50 mg PO DAILY #30 tabs 04/01/24 08/01/24 Rx tablet,extended release 24 hr rivaroxaban 20 mg tablet (Xarelto) 20 mg PO DAILY #30 tabs 04/01/24 08/01/24 Rx cholecalciferol (vitamin D3) 1,250 1,250 mcg PO WEEKLY #10 caps 04/29/24 08/01/24 Rx mcg (50,000 unit) capsule cholecalciferol (vitamin D3) 25 25 mcg .Route .COMPLEX #30 tabs 04/29/24 08/01/24 Rx mcg (1,000 unit) tablet sennosides 8.6 mg-docusate sodium 1 tab PO DAILY PRN Constipation 30 04/29/24 08/01/24 Rx 50 mg tablet (Stimulant Laxative days #30 tabs Plus) levetiracetam 500 mg tablet See Rx Instructions .Route 05/06/24 08/01/24 Rx (Keppra) .COMPLEX #90 tabs atorvastatin 40 mg tablet 40 mg PO DAILY 30 days #30 tabs 05/16/24 08/01/24 Rx potassium chloride 10 mEq 10 meq PO DAILY #30 caps 05/20/24 08/01/24 Rx capsule,extended release hydrochlorothiazide 25 mg tablet 25 mg PO DAILY #30 tabs 07/10/24 08/01/24 Rx ferrous sulfate 325 mg (65 mg 325 mg PO DAILY #30 tabs 07/26/24 08/01/24 Rx iron) tablet (Feosol) omeprazole 20 mg capsule,delayed 20 mg PO DAILY #30 caps 07/26/24 08/01/24 Rx release peg 3350-electrolytes 236 240 ml PO Q10M colonscopy #4,000 mL 08/02/24 Rx gram-22.74 gram-6.74 gram-5.86 gram solution (Golytely) New Prescriptions to Start Prescriptions: Allergies Allergy/AdvReac Type Severity Reaction Status Date / Time latex Allergy Intermediate Rash Verified 08/02/24 14:00 Exam Data for Last 24 hours Vital signs and Labs for Last 24 Hours: Temp Pulse Resp BP Pulse Ox O2 Del Method 99.2 F 72 18 118/59 L 100 Room Air 08/05/24 08:19 08/05/24 08:19 08/05/24 08:19 08/05/24 08:19 08/05/24 08:19 08/05/24 08:19 I & O for Last 24 hours: Intake & Output 08/02/24 08/03/24 08/04/24 08/05/24 23:59 23:59 23:59 23:59 Weight 148 lb *Routine HEENT Exam Head: Present normocephalic Eye: Present EOMI and PERRL ENT: Present mucous membranes moist *Routine Neck Exam Neck: Present supple *Routine Respiratory Exam Respiratory: Present CTA bilaterally *Routine Cardiovascular Exam Cardiovascular: Present RRR *Routine Abdominal Exam Abdominal: Present soft and normoactive bowel sounds; Absent tenderness *Routine Rectal Exam Rectal:: deferred *Routine Genitalia Exam Genitalia:: deferred *Routine Extremities Exam Extremities: Absent cyanosis, clubbing or edema *Routine Skin Exam Skin: Present warm; Absent rash *Routine Neurological Exam Neurological: Present alert and oriented X3 Assessment and Plan *Assessment and plan (1) Iron deficiency anemia: Status: Acute Category: Medical Code(s): D50.9 - Iron deficiency anemia, unspecified (2) Rectal bleeding: Status: Acute Category: Medical Code(s): K62.5 - Hemorrhage of anus and rectum (3) Left sided abdominal pain: Status: Acute Category: Medical Code(s): R10.9 - Unspecified abdominal pain (4) Heartburn: Status: Acute Category: Medical Code(s): R12 - Heartburn (5) GERD (gastroesophageal reflux disease): Status: Acute Category: Medical Code(s): K21.9 - Gastro-esophageal reflux disease without esophagitis (6) Dysphagia: Status: Acute Category: Medical Code(s): R13.10 - Dysphagia, unspecified (7) Abnormal weight loss: Status: Acute Category: Medical Code(s): R63.4 - Abnormal weight loss Plan A/P: 1. Iron deficiency anemia and rectal bleeding is the preprocedural diagnosis. The patient will be anesthetized/sedated using MAC sedation. The patient has been seen and examined. Cardiac and lung assessment prior to the examination is stable. Proceed with planned diagnostic EGD and colonoscopy colonoscopy
[2024-08-05 09:38] VITALS: O2SAT 100
--- NOTE | 2024-08-05 09:42 | P.PCN_ITS ---
[facility] Procedure Note Date: 08/05/24 Time: 09:57 Procedure Note:: Upper Endoscopy Procedure Report: Esophagogastroduodenoscopy with APC ablation, cold biopsies and TTS balloon dilation Endoscopost: Damian Lopez II, MD Referring Physician: TERRI Fuchs Date of Procedure: August 05, 2024 Equipment: Olympus GIF 190 standard upper endoscope Sedation: MAC sedation Indications: Mrs. Olivier is a 64-year-old female who is here for diagnostic panendoscopy. The patient does have iron deficiency anemia which is new. The patient's hemoglobin and hematocrit in April 2024 was 13.2 and 40.6. On 07/08/2024 her hemoglobin and hematocrit were 9.0 and 27.0 with microcytic indices. In the interim, the patient had cardiac catheterization with RCA stenting and had been placed on Plavix and Xarelto. She also has paroxysmal atrial fibrillation. She was seen by her PCP and cardiology and stopped the aspirin, Xarelto and Plavix on 07/08. Her iron studies on 07/08/2024 were low with serum iron 31, iron saturation 6.58%. Her creatinine was normal at 0.60. The patient did have some rectal bleeding that stopped last month after stopping the anticoagulation. The patient does report some left sided abdominal pain, heartburn and reflux. She has some intermittent dysphagia. She has never had EGD or colonoscopy. She reports some weight loss. She does have some chronic constipation. This is her first upper endoscopy. Procedure: Prior to the procedure, a history and physical exam was performed, and patient's medications and allergies were reviewed. The risks, benefits and alternatives of the sedation and procedure were discussed with the patient. All questions were answered and informed consent was obtained. The patient was brought to the procedure room. Patient identification and proposed procedure were verified by the physician and the nurse. The patient was placed in a left lateral decubitus position and the scope was passed under direct vision. Throughout the procedure, the patient's blood pressure, pulse, and oxygen saturations were monitored continuously. The upper GI endoscopy was accomplished without difficulty. The patient tolerated the procedure well. Findings: The scope was passed directly into the upper esophagus and advanced to the third portion of the duodenum. The post bulbar duodenum and duodenal bulb were normal with normal mucosa and conniventes. There was a single 3 mm angiodysplasia/AVM with some heme in the second portion of the duodenum. This was ablated/coagulated using APC (argon plasma coagulation). The scope was then withdrawn through a normal duodenal bulb and pylorus into the stomach. There was mild linear reactive gastropathy of the antrum. The body and fundus of the stomach were normal. Upon retroflexion there was a 2 to 3 cm hiatal hernia. There were no Matt's erosions. Biopsies were taken from the antrum. The scope was then withdrawn into the esophagus. There was no evidence of reflux esophagitis or Proctor's. There was a distal esophageal ring/Schatzki's ring. The entire esophagus was dilated to 60 Azeri/20 mm with a TTS hydrostatic balloon with shattering of the Schatzki's ring. The remainder of the esophageal mucosa was normal. Impression: 1. Schatzki's ring dilated to 20 mm 2. Small to medium sized hiatal hernia (2 to 3 cm) 3. 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 Plan: I do feel that the AVMs/angiodysplasia may be an etiology of her iron deficiency. Certainly this was aggravated by the anticoagulation. Long-term exposure to certain medications especially blood thinners (oral anticoagulants?i.e. Plavix, Eliquis, Xarelto, etc.) is an associated independent risk factor for the development of iron deficiency anemia. Other medications associated with iron deficiency anemia include acid reflux medications (proton pump inhibitors?omeprazole, pantoprazole, etc.) which are also associated with iron deficiency and play a role with reduced iron absorption. I will proceed with diagnostic colonoscopy and follow-up the biopsies. She will need to resume anticoagulation subsequently. I will check hemogram and iron studies again today I would consider parenteral iron if she remains low.
--- NOTE | 2024-08-05 10:40 | [facility].PROCNOTE ---
[facility] Procedure Note Date: 08/05/24 Time: 10:40 Procedure Note:: Colonoscopy Procedure Report: Colonoscopy with cold and hot snare polypectomy Endoscopist: Damian Lopez II, MD Referring physician: TERRI Fuchs Date of Procedure: August 05, 2024 Equipment: Olympus 190 variable stiffness pediatric colonoscope Sedation: MAC sedation Indication: Mrs. Olivier is a 64-year-old female who is here for diagnostic panendoscopy. The patient does have iron deficiency anemia which is new. The patient's hemoglobin and hematocrit in April 2024 was 13.2 and 40.6. On 07/08/2024 her hemoglobin and hematocrit were 9.0 and 27.0 with microcytic indices. In the interim, the patient had cardiac catheterization with RCA stenting and had been placed on Plavix and Xarelto. She also has paroxysmal atrial fibrillation. She was seen by her PCP and cardiology and stopped the aspirin, Xarelto and Plavix on 07/08. Her iron studies on 07/08/2024 were low with serum iron 31, iron saturation 6.58%. Her creatinine was normal at 0.60. The patient did have some rectal bleeding that stopped last month after stopping the anticoagulation. The patient does report some left sided abdominal pain, heartburn and reflux. She has some intermittent dysphagia. She has never had EGD or colonoscopy. She reports some weight loss. She does have some chronic constipation. This is her first colonoscopy. Procedure: Prior to the procedure, a history and physical exam was performed, and patient's medications and allergies were reviewed. The risks, benefits and alternatives of the sedation and procedure were discussed with the patient. All questions were answered and informed consent was obtained. The patient was brought to the procedure room. Patient identification and proposed procedure were verified by the physician and the nurse. The patient was placed in a left lateral decubitus position and the scope was passed under direct vision. Throughout the procedure, the patient's blood pressure, pulse, and oxygen saturations were monitored continuously. The colonoscopy was accomplished without difficulty. The patient tolerated the procedure well. Findings: On digital rectal examination there was normal rectal tone. There were no external hemorrhoids. The colonoscope was introduced through the anal canal to the rectum and advanced to the cecum. The ileocecal valve and appendiceal orifice were identified. The scope was advanced a short distance into the ileum which appeared grossly normal. The scope was then withdrawn into the colon. There were multiple colonic polyps identified. There were 16 total polyps identified and removed (cecum x 3 (4, 5 and 6 mm), ascending x 4 (4, 5, 12 and 17 mm), transverse x 3 (7, 8 and 8 mm), descending x 3 (5, 6 and 7 mm), sigmoid x 2 (6 and 6 mm) and distal sigmoid x 1 (pedunculated 16 mm polyp). The proximal ascending polyp that was 17 mm was laterally spreading nongranular polyp and removed via piecemeal. All of the polyps were removed via cold snare polypectomy except for the pedunculated polyp that was removed via snare cautery. There were scattered diverticuli throughout the descending and sigmoid colon (LEFT colon). The rectum itself was normal. Upon retroflexion within the rectum there were grade 2-3 internal hemorrhoids. The preparation was excellent throughout with [place] Preparation Score of 9. The cecal time was 22 minutes. Impression: 1. Colonic polyps x 16 (2 of which were advanced adenomas (proximal ascending laterally nongranular spreading adenoma and pedunculated lower sigmoid polyp) 2. Left-sided diverticulosis 3. Grade 2-3 internal hemorrhoids Plan: I will follow-up the polyp histology and recommend repeat surveillance colonoscopy in next 6 to 12 months based upon the pathology. I will discuss the findings with the patient and family. I will check iron studies today and hemogram and recommend parenteral iron if she remains low. I would encourage psyllium fiber supplementation on a maintenance basis.
[2024-08-05 10:45] VITALS: BP 118/65; PULSE 73; RESP 16; TEMP 36.4; O2SAT 99
[2024-08-05 10:55] VITALS: BP 117/64; PULSE 78; RESP 16; O2SAT 99
[2024-08-05 11:05] VITALS: BP 126/86; PULSE 89; RESP 18; O2SAT 100
[2024-08-05 11:15] VITALS: BP 115/62; PULSE 90; RESP 18; O2SAT 100
[2024-08-05 11:42] LABS: Iron 22 ug/dL (37-170)
[2024-08-05 11:59] LABS: Ferritin 7.09 ng/ml (11.1-264)
[2024-08-05 12:01] LABS: Total Iron Binding Capacity 371 ug/dL (265-497)
== END 2024-08-05 11:15 | disposition home or self-care (01) ==
PROVIDERS: PCP Family Medicine; Visit Provider Internal Medicine Gastroenterology
PROC: 0DJ08ZZ Inspection of Upper Intestinal Tract, Via Natural or Artificial Opening Endoscopic (ICD-10-PCS; CPT 45378; principal; 2024-08-05 09:30)
DX: K62.5 Hemorrhage of anus and rectum (principal); D50.9 Iron deficiency anemia, unspecified; R10.9 Unspecified abdominal pain; R12 Heartburn; K21.9 Gastro-esophageal reflux disease without esophagitis; R13.10 Dysphagia, unspecified; R63.4 Abnormal weight loss; K22.2 Esophageal obstruction; K44.9 Diaphragmatic hernia without obstruction or gangrene; K31.811 Angiodysplasia of stomach and duodenum with bleeding; K57.30 Diverticulosis of large intestine without perforation or abscess without bleeding; K64.8 Other hemorrhoids; D12.2 Benign neoplasm of ascending colon; D12.5 Benign neoplasm of sigmoid colon; K63.5 Polyp of colon; Z68.27 Body mass index [BMI] 27.0-27.9, adult
CPT/HCPCS: 43239; 43249; 43255; 45385; 36415; 82728; 83540; 83550; C1726; C2618; J2704; J7120

== ENCOUNTER 2024-10-14 08:44 | Outpatient (CLI) | payer MEDICARE, MEDICAID, SELFPAY ==
[2024-10-14 09:09] LABS: Basophils # 0.1 K/mm3 (0-0.2); Basophils % 0.8 % (0.1-2.0); Eosinophils # 0.1 K/mm3 (0.0-0.4); Eosinophils % 1.7 % (0.1-12.0); Hematocrit 42.5 % (37.0-47.0); Hemoglobin 13.9 g/dL (12.2-16.2); Lymphocytes # 1.5 K/mm3 (0.7-4.5); Lymphocytes % 24.9 % (10-50); Mean Corpuscular HGB Conc 32.7 g/dL (31.8-35.4); Mean Corpuscular Hemoglobin 27.1 pg (27.0-31.2); Mean Platelet Volume 9.2 fl (7.4-10.4); Monocytes # 0.6 K/mm3 (0.1-1.0); Monocytes % 10.5 % (1.7-9.3); Neutrophils # 3.7 K/mm3 (1.8-7.8); Neutrophils % 61.9 % (37.0-80.0); Platelet Count 317 K/mm3 (142-424); Red Blood Count 5.12 M/mm3 (4.20-5.40); Red Cell Distribution Width 17.2 % (11.5-17.5)
[2024-10-14 10:23] LABS: Iron 65 ug/dL (37-170)
[2024-10-14 10:40] LABS: Total Iron Binding Capacity 403 ug/dL (265-497)
[2024-10-14 11:10] LABS: Free T4 (Free Thyroxine) 1.44 ng/dl (0.78-2.19)
== END 2024-10-14 23:59 | disposition home or self-care (01) ==
PROVIDERS: Nurse Practitioner; PCP Family Medicine; Visit Provider Family Medicine
DX: D64.9 Anemia, unspecified (principal); R00.2 Palpitations; I25.118 Atherosclerotic heart disease of native coronary artery with other forms of angina pectoris; R53.83 Other fatigue; I10 Essential (primary) hypertension; R42 Dizziness and giddiness
CPT/HCPCS: 36415; 83540; 83550; 84439; 84443; 85025; 93270

== ENCOUNTER 2024-11-07 09:20 | Outpatient (CLI) | payer MEDICARE, MEDICAID, SELFPAY ==
[2024-11-07 18:24] LABS: Basophils # 0.1 K/mm3 (0-0.2); Basophils % 1.1 % (0.1-2.0); Eosinophils # 0.1 K/mm3 (0.0-0.4); Eosinophils % 1.9 % (0.1-12.0); Hematocrit 41.8 % (37.0-47.0); Lymphocytes # 1.1 K/mm3 (0.7-4.5); Lymphocytes % 19.3 % (10-50); Mean Corpuscular HGB Conc 33.5 g/dL (31.8-35.4); Mean Corpuscular Hemoglobin 28.3 pg (27.0-31.2); Mean Corpuscular Volume 84.6 fl (81-99); Mean Platelet Volume 10.2 fl (7.4-10.4); Monocytes # 0.5 K/mm3 (0.1-1.0); Monocytes % 8.1 % (1.7-9.3); Neutrophils # 3.9 K/mm3 (1.8-7.8); Neutrophils % 69.2 % (37.0-80.0); Nucleated Red Blood Cells # 0 10^3/uL; Nucleated Red Blood Cells % 0 %; Platelet Count 317 K/mm3 (142-424); Red Blood Count 4.94 M/mm3 (4.20-5.40); Red Cell Distribution Width 13.8 % (11.5-17.5); Red Cell Distribution Width-SD 39.8 fL; White Blood Count 5.7 K/mm3 (4.8-10.8)
[2024-11-07 19:47] LABS: Albumin Level 4.1 g/dl (3.5-5.0); Chloride 96 mmol/L (98-107); Potassium 3.1 mmoL/L (3.5-5.1); Sodium 136 mmol/L (136-145)
[2024-11-07 19:50] LABS: Alanine Aminotransferase 17 U/L (12-78); Albumin/Globulin Ratio 1.5 (1.1-1.8); Alkaline Phosphatase 97 U/L (38-126); Anion Gap 14.1 mEq/L (5-15); Aspartate Amino Transferase 25 U/L (14-36); Bilirubin,Total 0.3 mg/dl (0.2-1.3); Blood Urea Nitrogen 12 mg/dl (7-17); Calcium 9.2 mg/dl (8.4-10.2); Carbon Dioxide 29 mmol/L (22.0-30.0); Estimated Glomerular Filt Rate 100 ml/min (>60); GFR (African American) 121 ML/MIN (>60); Globulin 2.8 g/dL (1.3-3.2); Glucose 128 mg/dl (74-100); Total Protein,Serum 6.9 g/dl (6.3-8.2)
== END 2024-11-07 23:59 | disposition home or self-care (01) ==
LOC: LAB.DROPOF 11-08 11:38
PROVIDERS: PCP Family Medicine; Visit Provider Family Medicine
DX: D50.9 Iron deficiency anemia, unspecified (principal); I10 Essential (primary) hypertension
CPT/HCPCS: 80053; 85025

== ENCOUNTER 2024-12-19 06:09 | Emergency (ER) | payer MEDICARE, MEDICAID, SELFPAY ==
[2024-12-19] VITALS (8 sets, daily range): BP systolic 110–132; BP diastolic 74–98; PULSE 76–89; RESP 14–19; TEMP 36.9; O2SAT 94–97; BMI 29.9
--- NOTE | 2024-12-19 06:01 | ED_ITS ---
Discharge Plan Disposition Patient Disposition: Home, Self-Care Prescriptions Prescriptions: No Action sennosides-docusate sodium [Stimulant Laxative Plus] 8.6-50 mg tablet 1 tab PO DAILY PRN (Reason: Constipation) 30 Days Qty: 30 0RF hydrochlorothiazide 25 mg tablet 25 mg PO DAILY Qty: 30 5RF Xarelto 20 mg tablet 20 mg PO DAILY Qty: 30 5RF Rx Instructions: must administer with evening meal atorvastatin 40 mg tablet See Rx Instructions .ROUTE .COMPLEX Qty: 90 3RF Dose Instruction: TAKE ONE TABLET BY MOUTH ONCE A DAY Rx Instructions: TAKE ONE TABLET BY MOUTH ONCE A DAY metoprolol succinate 50 mg tablet extended release 24 hr See Rx Instructions .ROUTE .COMPLEX Qty: 90 3RF Dose Instruction: TAKE ONE TABLET BY MOUTH ONCE A DAY Rx Instructions: TAKE ONE TABLET BY MOUTH ONCE A DAY ferrous sulfate [FeroSul] 325 mg (65 mg iron) tablet See Rx Instructions .ROUTE .COMPLEX Qty: 30 7RF Dose Instruction: TAKE ONE TABLET BY MOUTH ONCE A DAY Rx Instructions: TAKE ONE TABLET BY MOUTH ONCE A DAY cholecalciferol (vitamin D3) 1,250 mcg (50,000 unit) capsule See Rx Instructions .ROUTE .COMPLEX Qty: 4 3RF Dose Instruction: TAKE ONE CAPSULE BY MOUTH ONCE WEEKLY Rx Instructions: TAKE ONE CAPSULE BY MOUTH ONCE WEEKLY cholecalciferol (vitamin D3) 25 mcg (1,000 unit) tablet See Rx Instructions .ROUTE .COMPLEX Qty: 30 3RF Dose Instruction: TAKE ONE TABLET BY MOUTH ONCE A DAY Rx Instructions: TAKE ONE TABLET BY MOUTH ONCE A DAY levetiracetam 500 mg tablet See Rx Instructions .ROUTE .COMPLEX Qty: 90 5RF Dose Instruction: TAKE ONE TABLET BY MOUTH EVERY MORNING AND TAKE TWO TABLETS BY MOUTH EVERY EVENING Rx Instructions: TAKE ONE TABLET BY MOUTH EVERY MORNING AND TAKE TWO TABLETS BY MOUTH EVERY EVENING potassium chloride 10 mEq capsule, extended release See Rx Instructions .ROUTE .COMPLEX Qty: 30 3RF Dose Instruction: TAKE ONE CAPSULE BY MOUTH ONCE A DAY Rx Instructions: TAKE ONE CAPSULE BY MOUTH ONCE A DAY Activity Restrictions/Add. Instructions Additional Instructions/Restrictions: At this time it was felt you are safe to be discharged home. If new or worsening symptoms please do not hesitate to return the emergency department. Please call and schedule an appointment to follow-up with your family doctor tomorrow or Monday to repeat your blood work to make sure that your electrolytes (sodium and potassium) are the same or starting return to normal as they were a little bit low today. It is very important that you call your neurologist and get in with them as soon as you are able to see if your seizure medications need to be adjusted. Seizure Precautions: due to being evaluated in the emergency department for seizure-like activity today, you must stop driving immediately. Per [place] law you must be seizure-free for at least 90 days. Please follow-up with your family doctor or your neurologist prior to then to be cleared for driving. Do not swim alone or go swimming with no laborer plumbing, operate heavy machinery, or lock the bathroom door while bathing. Do not undertake activities such as water sports, climbing, or where there is injury if you were to fall. Do not bathe children by your self. Clinical Impressions Clinical Impression: Generalized seizure, Seizure disorder, Hyponatremia, Hypokalemia, URI (upper respiratory infection) Instructions Patient Instructions: DI for Seizure Disorder -- Adult, DI for Seizure (Not Epilepsy/Seizure Disorder), DI for Seizure Disorder -- Child Print Language Print Language: Portuguese Discharge ED Provider: Garland Polanco General Adult HPI <Garland Polanco MD - Last Filed: 12/19/24 07:13> General Chief complaint: Seizure Stated complaint: seizure Time Seen by Provider: 12/19/24 06:12 History of Present Illness HPI narrative: 64-year-old female with history of colon cancer and seizure disorder on Keppra presents after seizure at home. Unknown seizure duration, unknown number of seizures. On arrival patient is postictal and confused and combative and unable to provide any history. EMS reports that family at home said that she had a seizure disorder but were unable to provide any other significant information. Related Data Previous Rx's ?Medication ?Instructions ?Recorded sennosides 8.6 mg-docusate sodium 1 tab PO DAILY PRN C onstipation 30 04/29/24 50 mg tablet (Stimulant Laxative days #30 tabs Plus) hydrochlorothiazide 25 mg tablet 25 mg PO DAILY #30 ta bs 07/10/24 rivaroxaban 20 mg tablet (Xarelto) 20 mg PO DAILY #30 tabs 08/08/24 atorvastatin 40 mg tablet See Rx Instructions .Route 0 09/10/24 .COMPLEX #90 tabs metoprolol succinate 50 mg See Rx Instructions .Route 09/24/24 tablet,extended release 24 hr .COMPLEX #90 tabs ferrous sulfate 325 mg (65 mg See Rx Instructions .Rou te 10/24/24 iron) tablet (FeroSul) .COMPLEX #30 tabs cholecalciferol (vitamin D3) 1,250 See Rx Instructions .Route 11/18/24 mcg (50,000 unit) capsule .COMPLEX #4 caps cholecalciferol (vitamin D3) 25 See Rx Instructions .R oute 11/20/24 mcg (1,000 unit) tablet .COMPLEX #30 ea levetiracetam 500 mg tablet See Rx Instructions .Route 12/02/24 .COMPLEX #90 tabs potassium chloride 10 mEq See Rx Instructions .Route 0 12/12/24 capsule,extended release .COMPLEX #30 caps Allergies Allergy/AdvReac Type Severity Reaction Status Date / Time latex Allergy Intermediate Rash Verified 11/07/24 08:51 [facility] <Garland Polanco MD - Last Filed: 12/19/24 07:13> [facility] Disclaimer: The information contained in this section may have been updated after the patient was seen, as this information can be updated by other users. Medical History (Updated 12/19/24 @ 09:17 by Rory Mckee MD) Abnormal weight loss Rectal bleed Left sided abdominal pain Rectal bleeding Acute hypokalemia Dizziness Obesity (BMI 30-39.9) Facial dermatitis Left leg swelling Acute postoperative pain of left hip Edema Paronychia Atypical angina Abnormal findings on diagnostic imaging of heart and coronary circulation Abnormal electrocardiography Urinary tract infection Anemia Right shoulder pain Coronary artery disease Fatigue Stage II decubitus ulcer Hypertension Encounter for colorectal cancer screening Encounter for pre-operative cardiovascular clearance Sinus tachycardia Surgical History S/P cardiac cath H/O tubal ligation History of left hip replacement Family History Mother Diabetes Melanoma Hypertension Heat failure Other Family history of diabetes mellitus type II Family history of myocardial infarction Family history of stroke Social History Smoking Status: Unknown if ever smoked second hand exposure: Yes alcohol intake: never substance use type: marijuana current occupational status: disabled Travel in the last 8 weeks?: None household members: children housing: house current occupational exposures/hazards: No Other Medical History Have you received the Flu Vaccine for this season: No Have you received the Pneumonia Vaccine: Yes <Garland Polanco MD - Last Filed: 12/19/24 07:13> ROS Obtained: Yes All systems reviewed & no additional complaints except as documented Physical Exam <Garland Polanco MD - Last Filed: 12/19/24 07:13> General General appearance: other (confused, combative, postictal in appearance) Comment: Confused, combative Head Head exam: atraumatic and normocephalic Eye Eye exam: Present normal appearance, PERRL and EOMI ENT ENT exam: Present normal oropharynx and normal external ear exam Neck Neck exam: Present normal inspection and full ROM Chest Chest inspection: Present normal inspection and symmetric chest wall rise; Absent tenderness Respiratory Respiratory exam: Present normal lung sounds bilaterally; Absent respiratory distress Cardiovascular Cardiovascular exam: Present regular rate and normal rhythm Abdominal Exam Abdominal exam: Present soft; Absent distention, tenderness or guarding Extremities Exam Extremities exam: Present normal inspection; Absent edema or joint swelling Back Exam Back exam: Present normal inspection; Absent tenderness Neurological Exam Neurological exam: Present other (Confused, combative, moving all extremities, appears postictal) Skin Skin exam: Present warm, dry and normal color Lymphatic Lymphatic Findings: no adenopathy Medical Decision Making <Garland Polanco MD - Last Filed: 12/19/24 07:13> Medical Records Medical records reviewed: Yes I reviewed the patient's medical records. Screening: Per USPSTF and CDC recommendations, given the prevalence of disease in our region, it is our hospital?s policy to screen for HIV and viral Hepatitis for all patients aged 18 and over and those with ongoing risk factors. Azeem Inquiry Pt receiving controlled substance: No Azeem was queried for this patient: No Vital Signs: 12/19/24 06:10 12/19/24 06:14 12/19/24 06:31 Pulse Rate 81 86 Pulse Rate [Right] 80 Respiratory Rate 18 16 14 Blood Pressure 110/87 Blood Pressure [Right Arm] 129/74 Blood Pressure Mean 94 Blood Pressure Mean [Right Arm] 92 Blood Pressure Source [Right Arm] Automatic Cuff Blood Pressure Position [Right Arm] Supine 02 Sat by Pulse Oximetry 95 94 L 96 Oxygen Delivery Method Room Air 12/19/24 06:45 12/19/24 07:00 12/19/24 08:00 Pulse Rate 89 86 80 Pulse Rate [Right] Respiratory Rate 19 17 16 Blood Pressure 126/84 127/75 Blood Pressure [Right Arm] Blood Pressure Mean Blood Pressure Mean [Right Arm] Blood Pressure Source [Right Arm] Blood Pressure Position [Right Arm] 02 Sat by Pulse Oximetry 96 95 97 Oxygen Delivery Method Room Air Room Air 12/19/24 08:30 Pulse Rate 76 Pulse Rate [Right] Respiratory Rate 19 Blood Pressure 132/76 Blood Pressure [Right Arm] Blood Pressure Mean Blood Pressure Mean [Right Arm] Blood Pressure Source [Right Arm] Blood Pressure Position [Right Arm] 02 Sat by Pulse Oximetry 96 Oxygen Delivery Method Room Air Lab Data Lab results reviewed: Yes I reviewed the patient's lab results. Lab Results 12/19/24 06:10: WBC 7.0, RBC 4.74, Hgb 13.7, Hct 40.2, MCV 84.8, MCH 28.9, MCHC 34.1, RDW 12.6, Plt Count 253, MPV 10.3, Neut % (Auto) 59.3, Lymph % (Auto) 29.0, [place] % (Auto) 8.6, Eos % (Auto) 2.0, Baso % (Auto) 0.7, Neut # (Auto) 4.2, Lymph # (Auto) 2.0, [place] # (Auto) 0.6, Eos # (Auto) 0.1, Baso # (Auto) 0.1, S odium 129 L, Potassium 3.0 L, Chloride 90 L, Carbon Dioxide 28, Anion Gap 14.0, BUN 10, Creatinine 0.70, Estimated Creat Clear 72, Estimated GFR 84, Est GFR ( Amer) 102, Glucose 133 H, Calcium 9.3, Magnesium 1.7, Total Bilirubin 1.0, AST 31, ALT 23, Alkaline Phosphatase 76, Total Protein 6.8, Albumin 4.3, Globulin 2.5, Albumin/Globulin Ratio 1.7, HCV Ab LELA w/Rflx PCR Qn Negative, HIV Ag/Ab Combo Qual Negative 12/19/24 06:10 12/19/24 06:10 Orders (Tests/Meds): ED MEDICATIONS Generic Name Dose Route Start Last Admin Trade Name Freq PRN Reason Stop Dose Admin Sodium Chloride 10 ml 12/19/24 06:09 Sodium Chloride 0.9% 10ml Vial IV 01/18/25 06:08 NEEDED PRN to Dilute Lorazepam inj Discontinued Medications Generic Name Dose Route Start Last Admin Trade Name Martell PRN Reason Stop Dose Admin Levetiracetam 3,000 mg/ Sodium 130 mls @ 260 mls/hr 12/19/24 06:07 12/19/24 06:17 Chloride IV 12/19/24 06:08 260 mls/hr ONCE ONE Administration Sodium Chloride 1,000 mls @ 999 mls/hr 12/19/24 06:45 12/19/24 06:49 Sod Chlor 0.9% 1000ml Bag IV 12/19/24 07:45 999 mls/hr .Q1H1M [place] Administration Potassium Chloride/Water 100 mls @ 100 mls/hr 12/19/24 06:40 12/19/24 08:32 Potassium Chloride 10meq/100ml Ivpb IV 12/19/24 08:39 Not Given Q1H [place] Lorazepam 1 mg 12/19/24 06:09 12/19/24 06:17 Lorazepam 2mg/Ml Vial IV 12/19/24 06:10 1 mg ONCE ONE Administration Potassium Chloride 40 meq 12/19/24 08:25 12/19/24 08:30 Potassium Chloride 20meq Tab PO 12/19/24 08:26 40 meq ONCE ONE Administration ORDERS Category Date Time Status CXR --portable [XR chest portable] Stat Exams 12/19/24 08:24 Taken CBC w/Auto Diff [Complete Blood Count Auto Diff] Stat Lab 12/19/24 06:10 Completed CMP [Comprehensive Metabolic Panel] Stat Lab 12/19/24 06:10 Completed HIV Combo Stat Lab 12/19/24 06:10 Completed Hepatitis C Ab Qual. W/ RFX Stat Lab 12/19/24 06:10 Completed MAG [Magnesium] Stat Lab 12/19/24 06:10 Completed Medical Decision Narrative: 64-year-old female with history of colon cancer and seizure disorder on Keppra presents after seizure at home via EMS. History was obtained via interactive discussion with patient. On arrival, patient is afebrile, hemodynamically stable, postictal appearing and combative, moving all extremities spontaneously. Full physical exam performed and significant for no significant signs of trauma Differential includes but is not limited to breakthrough seizure, electrolyte derangement, medication noncompliance. Patient was given 1 of IV Ativan for combativeness and 3 g of Keppra load for symptomatic management and correction of underlying abnormalities. Workup initiated including CBC CMP. On re-evaluation, patient [remains afebrile, HD stable.] Laboratory workup independently interpreted by me and significant for no significant leukocytosis, mild hyponatremia with sodium of 129, mild hypokalemia with potassium 3. Patient was given 1 L IV NS bolus and initiated on IV potassium repletion. At this time care was handed off to oncoming physician pending reassessment. <Rory Mckee MD - Last Filed: 12/19/24 09:19> Vital Signs: 12/19/24 06:10 12/19/24 06:14 12/19/24 06:31 Pulse Rate 81 86 Pulse Rate [Right] 80 Respiratory Rate 18 16 14 Blood Pressure 110/87 Blood Pressure [Right Arm] 129/74 Blood Pressure Mean 94 Blood Pressure Mean [Right Arm] 92 Blood Pressure Source [Right Arm] Automatic Cuff Blood Pressure Position [Right Arm] Supine 02 Sat by Pulse Oximetry 95 94 L 96 Oxygen Delivery Method Room Air 12/19/24 06:45 12/19/24 07:00 12/19/24 08:00 Pulse Rate 89 86 80 Pulse Rate [Right] Respiratory Rate 19 17 16 Blood Pressure 126/84 127/75 Blood Pressure [Right Arm] Blood Pressure Mean Blood Pressure Mean [Right Arm] Blood Pressure Source [Right Arm] Blood Pressure Position [Right Arm] 02 Sat by Pulse Oximetry 96 95 97 Oxygen Delivery Method Room Air Room Air 12/19/24 08:30 Pulse Rate 76 Pulse Rate [Right] Respiratory Rate 19 Blood Pressure 132/76 Blood Pressure [Right Arm] Blood Pressure Mean Blood Pressure Mean [Right Arm] Blood Pressure Source [Right Arm] Blood Pressure Position [Right Arm] 02 Sat by Pulse Oximetry 96 Oxygen Delivery Method Room Air Lab Data Lab Results 12/19/24 06:10: WBC 7.0, RBC 4.74, Hgb 13.7, Hct 40.2, MCV 84.8, MCH 28.9, MCHC 34.1, RDW 12.6, Plt Count 253, MPV 10.3, Neut % (Auto) 59.3, Lymph % (Auto) 29.0, [place] % (Auto) 8.6, Eos % (Auto) 2.0, Baso % (Auto) 0.7, Neut # (Auto) 4.2, Lymph # (Auto) 2.0, [place] # (Auto) 0.6, Eos # (Auto) 0.1, Baso # (Auto) 0.1, S odium 129 L, Potassium 3.0 L, Chloride 90 L, Carbon Dioxide 28, Anion Gap 14.0, BUN 10, Creatinine 0.70, Estimated Creat Clear 72, Estimated GFR 84, Est GFR ( Amer) 102, Glucose 133 H, Calcium 9.3, Magnesium 1.7, Total Bilirubin 1.0, AST 31, ALT 23, Alkaline Phosphatase 76, Total Protein 6.8, Albumin 4.3, Globulin 2.5, Albumin/Globulin Ratio 1.7, HCV Ab LELA w/Rflx PCR Qn Negative, HIV Ag/Ab Combo Qual Negative Orders (Tests/Meds): ED MEDICATIONS Generic Name Dose Route Start Last Admin Trade Name Freq PRN Reason Stop Dose Admin Sodium Chloride 10 ml 12/19/24 06:09 Sodium Chloride 0.9% 10ml Vial IV 01/18/25 06:08 NEEDED PRN to Dilute Lorazepam inj Discontinued Medications Generic Name Dose Route Start Last Admin Trade Name Freq PRN Reason Stop Dose Admin Levetiracetam 3,000 mg/ Sodium 130 mls @ 260 mls/hr 12/19/24 06:07 12/19/24 06:17 Chloride IV 12/19/24 06:08 260 mls/hr ONCE ONE Administration Sodium Chloride 1,000 mls @ 999 mls/hr 12/19/24 06:45 12/19/24 06:49 Sod Chlor 0.9% 1000ml Bag IV 12/19/24 07:45 999 mls/hr .Q1H1M [place] Administration Potassium Chloride/Water 100 mls @ 100 mls/hr 12/19/24 06:40 12/19/24 08:32 Potassium Chloride 10meq/100ml Ivpb IV 12/19/24 08:39 Not Given Q1H [place] Lorazepam 1 mg 12/19/24 06:09 12/19/24 06:17 Lorazepam 2mg/Ml Vial IV 12/19/24 06:10 1 mg ONCE ONE Administration Potassium Chloride 40 meq 12/19/24 08:25 12/19/24 08:30 Potassium Chloride 20meq Tab PO 12/19/24 08:26 40 meq ONCE ONE Administration ORDERS Category Date Time Status CXR --portable [XR chest portable] Stat Exams 12/19/24 08:24 Taken CBC w/Auto Diff [Complete Blood Count Auto Diff] Stat Lab 12/19/24 06:10 Completed CMP [Comprehensive Metabolic Panel] Stat Lab 12/19/24 06:10 Completed HIV Combo Stat Lab 12/19/24 06:10 Completed Hepatitis C Ab Qual. W/ RFX Stat Lab 12/19/24 06:10 Completed MAG [Magnesium] Stat Lab 12/19/24 06:10 Completed Medical Decision Narrative: 64-year-old female with history of colon cancer and seizure disorder on Keppra presents after seizure at home via EMS. History was obtained via interactive discussion with patient. On arrival, patient is afebrile, hemodynamically stable, postictal appearing and combative, moving all extremities spontaneously. Full physical exam performed and significant for no significant signs of trauma Differential includes but is not limited to breakthrough seizure, electrolyte derangement, medication noncompliance. Patient was given 1 of IV Ativan for combativeness and 3 g of Keppra load for symptomatic management and correction of underlying abnormalities. Workup initiated including CBC CMP. On re-evaluation, patient [remains afebrile, HD stable.] Laboratory workup independently interpreted by me and significant for no significant leukocytosis, mild hyponatremia with sodium of 129, mild hypokalemia with potassium 3. Patient was given 1 L IV NS bolus and initiated on IV potassium repletion. At this time care was handed off to oncoming physician pending reassessment. Rory Mckee: Upon assumption of care patient was hemodynamically stable. The patient was placed in observation status at 7:15 AM. Medical necessity for observational status is serial neurologic exams in the setting of seizure. The patient was provided serial reevaluations and cardiac monitoring while awaiting results. Ultimately patient slowly progressed to normal neurologic baseline, GCS 15, moving all extremities, conversational. Underwent p.o. challenge and was successful. Upon further questioning she has had cough and upper respiratory symptoms as of late. She has a known seizure disorder and has seizures often and has been compliant with her medications. I suspect that her upper respiratory infection has lowered her seizure threshold. She has been loaded with Keppra. Additional potassium repletion given that she is awake now will be repleted with 40 mill equivalents p.o. She has mild hyponatremia 129 which is not low enough to cause seizure. Chest x-ray obtained to screen for underlying pneumonia. Chest x-ray informally interpreted by me no acute lobar opacities or large pneumothorax. Patient was ambulatory multiple times at bedside and is appropriate for outpatient management at this time given that she has seizures with relative frequency and has had full recovery also has a reason to lower her seizure threshold with a upper respiratory tract infection. Total time in observation 2 hours. Procedures <Garland Polanco MD - Last Filed: 12/19/24 07:13> Risk/Benefits of Procedure(s) Were Explained: Yes Critical Care <Garlnad Polanco MD - Last Filed: 12/19/24 07:13> Critical Care Time Critical Care Time: Yes Attestation: On 12/19/24, the high probability of a clinically significant, sudden or life threatening deterioration of the following system(s) required my full and direct attention, intervention and personal management. The time I documented below is in addition to time spent performing reported procedures but includes the following listed in this critical care notation. Total Time Total Critical Care Time: 40
[2024-12-19 06:17] LABS: Basophils # 0.1 K/mm3 (0-0.2); Basophils % 0.7 % (0.1-2.0); Eosinophils # 0.1 Kmm3 (0.0-0.4); Hematocrit 40.2 % (37.0-47.0); Hemoglobin 13.7 g/dL (12.2-16.2); Immature Granulocytes # 0.03 10^3uL; Immature Granulocytes % 0.4 %; Mean Corpuscular HGB Conc 34.1 g/dL (31.8-35.4); Mean Corpuscular Hemoglobin 28.9 pg (27.0-31.2); Mean Corpuscular Volume 84.8 fl (81-99); Mean Platelet Volume 10.3 fl (7.4-10.4); Monocytes # 0.6 K/mm3 (0.1-1.0); Monocytes % 8.6 % (1.7-9.3); Neutrophils # 4.2 K/mm3 (1.8-7.8); Neutrophils % 59.3 % (37.0-80.0); Nucleated Red Blood Cells # 0 10^3/uL; Nucleated Red Blood Cells % 0 %; Platelet Count 253 K/mm3 (142-424); Red Blood Count 4.74 M/mm3 (4.20-5.40); Red Cell Distribution Width 12.6 % (11.5-17.5); Red Cell Distribution Width-SD 38.8 fL
[2024-12-19] MEDS: LORazepam 2MG/ML VIAL 1 MG IV (06:17)
[2024-12-19 06:30] LABS: Alanine Aminotransferase 23 U/L (12-78); Albumin Level 4.3 g/dl (3.5-5.0); Albumin/Globulin Ratio 1.7 (1.1-1.8); Alkaline Phosphatase 76 U/L (38-126); Aspartate Amino Transferase 31 U/L (14-36); Blood Urea Nitrogen 10 mg/dl (7-17); Calcium 9.3 mg/dl (8.4-10.2); Carbon Dioxide 28 mmol/L (22.0-30.0); Chloride 90 mmol/L (98-107); Creatinine Clearance Estimated 72 mL/min (50-200); Estimated Glomerular Filt Rate 84 ml/min (>60); GFR (African American) 102 ML/MIN (>60); Globulin 2.5 g/dL (1.3-3.2); Glucose 133 mg/dl (74-100); Sodium 129 mmol/L (136-145); Total Protein,Serum 6.8 g/dl (6.3-8.2)
[2024-12-19] MEDS: 0.9 % SODIUM CHLORIDE 1000ML 1,000 ML 999 ML IV (06:49)
[2024-12-19] MEDS: KCl 10mEq/100ml 100 ML 100 MEQ IV (06:49)
[2024-12-19 06:53] LABS: Magnesium 1.7 mg/dl (1.6-2.3)
--- NOTE | 2024-12-19 08:24 | XR_ITS ---
FINAL REPORT CLINICAL HISTORY: Nonspecific cough COMPARISON: 02/17/2024 FINDINGS: The heart size is normal. The mediastinum is normal. There is no focal infiltrate or edema. There are no pleural effusions. There is no pneumothorax. There is no osseous abnormality. IMPRESSION: No acute cardiopulmonary process Reviewed, Interpreted and Dictated by Mika Peres MD Transcribed by Ekta Michele Authenticated and [facility]
--- NOTE | 2024-12-19 08:25 | PC.NURSE ---
call made to dietary for breakfast tray
[2024-12-19] MEDS: POTASSIUM CHLORIDE 20MEQ TAB 40 MEQ PO (08:30)
[2024-12-19 08:31] LABS: HIV Combo NEGATIVE (Negative)
[2024-12-19 08:40] LABS: Hepatitis C Ab Qual. W/ RFX NEGATIVE (Negative)
--- NOTE | 2024-12-19 08:42 | PC.NURSE ---
called patients son jc he will come pick her up
--- NOTE | 2024-12-19 08:48 | PC.NURSE ---
XRAY AT [facility]
== END 2024-12-19 10:00 | disposition home or self-care (01) ==
PROVIDERS: Emergency Provider Emergency Medicine
DX: G40.319 Generalized idiopathic epilepsy and epileptic syndromes, intractable, without status epilepticus (principal); E87.6 Hypokalemia; E87.1 Hypo-osmolality and hyponatremia; G47.33 Obstructive sleep apnea (adult) (pediatric); J06.9 Acute upper respiratory infection, unspecified; K21.9 Gastro-esophageal reflux disease without esophagitis
CPT/HCPCS: 71045; 80053; 83735; 85025; 86803; 87389; 96361; 96365; 96366; 96375; 99285; J1953; J2060; J3480; J7030

== ENCOUNTER 2025-02-13 11:51 | Outpatient (CLI) | payer MEDICARE, MEDICAID, SELFPAY ==
[2025-02-13 15:23] LABS: Chloride 96 mmol/L (98-107)
[2025-02-13 15:24] LABS: Albumin Level 4.2 g/dl (3.5-5.0); Potassium 3.3 mmoL/L (3.5-5.1); Sodium 133 mmol/L (136-145)
[2025-02-13 15:26] LABS: Hematocrit 42.1 % (37.0-47.0); Hemoglobin 13.9 g/dL (12.2-16.2); Immature Granulocytes % 0.3 %; Mean Corpuscular HGB Conc 33.0 g/dL (31.8-35.4); Mean Corpuscular Hemoglobin 29.2 pg (27.0-31.2); Mean Corpuscular Volume 88.4 fl (81-99); Nucleated Red Blood Cells % 0 %; Platelet Count 297 K/mm3 (142-424); Red Blood Count 4.76 M/mm3 (4.20-5.40); Red Cell Distribution Width-SD 41.5 fL; White Blood Count 6.8 K/mm3 (4.8-10.8)
[2025-02-13 15:27] LABS: Alanine Aminotransferase 15 U/L (12-78); Albumin/Globulin Ratio 1.6 (1.1-1.8); Alkaline Phosphatase 80 U/L (38-126); Anion Gap 10.3 mEq/L (5-15); Aspartate Amino Transferase 24 U/L (14-36); Bilirubin,Total 0.4 mg/dl (0.2-1.3); Blood Urea Nitrogen 17 mg/dl (7-17); Calcium 9.9 mg/dl (8.4-10.2); Carbon Dioxide 30 mmol/L (22.0-30.0); Creatinine,Serum 0.60 mg/dl (0.52-1.04); Estimated Glomerular Filt Rate 100 ml/min (>60); GFR (African American) 121 ML/MIN (>60); Globulin 2.6 g/dL (1.3-3.2); Glucose 106 mg/dl (74-100); Iron 82 ug/dL (37-170); Total Protein,Serum 6.8 g/dl (6.3-8.2)
[2025-02-13 16:02] LABS: Ferritin 52.7 ng/ml (11.1-264)
[2025-02-13 17:08] LABS: Hemoglobin A1C 5.5 % (4.0-6.0)
--- OUTSIDE RECORDS SUMMARY | 2025-02-17 11:54 | XMS_ITS | Clinical Summary ---
Author Organization Healthcare Address [address] [place] [address] Care Team Providers Care Director Call Center Sales Name Role Phone Brandi Salazar APRN Primary Care Provider [phone] Allergies Active Allergy Reactions Criticality Noted Date Comments Latex Hives Medium 10/29/2015 Medications atorvastatin (Lipitor) 40 MG tablet 07/25/2024 Active GNP Vitamin D3 Extra Strength 25 MCG (1000 UT) tablet 07/25/2024 Ac tive FeroSul 325 (65 Fe) MG tablet 07/26/2024 Active hydroCHLOROthiazide (HYDRODiuril) 25 MG tablet 07/25/2024 Active levETIRAcetam (Keppra) 500 MG tablet 07/25/2024 Active metoprolol succinate XL (Toprol-XL) 50 MG 24 hr tablet 07/25/2024 Active omeprazole (PriLOSEC) [address] capsule 07/26/2024 Active PEG 5304-GDi-DbUvy-NaCl- NaSulf (PEG-3350/Electrolyt es) 236 g reconstituted solution 08/02/2024 Active potassium chloride ER (Micro-K) 10 MEQ ER capsule 08/16/2024 Active Senna Plus 8.6-50 MG tablet 04/29/2024 Active Xarelto 20 MG tablet 07/25/2024 Active Active Problems Problem Noted Date Diagnosed Date Hypertension Colon cancer Heart disease Encounters Date Type Department Care Team Description 02/13/2025 Telephone [facility] General Surgery [address], [address] [place] [address] Mika Henson MD HCN Clinical Concern/Question from Last 3 Months Family History Medical History Relation Name Comments Diabetes Brother Cancer Mother Diabetes Mother Heart disease Mother Cancer Sister Relation Name Status Comments Brother Mother Sister Social History Tobacco Use Types Packs/Day Years Used Date Smoking Tobacco: Never Passive Smoke Exposure: Past Smokeless Tobacco: Never PHQ-2 Answer Date Recorded Patient Health Questionnaire-2 Score 0 10/15/2024 Comments Unknown Sex and Gender Information Value Date Recorded Sex Assigned at Not on file Legal Sex Female 7:36 PM EDT Gender Identity Not on file Sexual Orientation Not on file Last Filed Vital Signs Vital Sign Reading Time Taken Comments Blood Pressure 145/93 10/15/2024 10:14 AM EDT Pulse 76 10/15/2024 10:14 AM EDT Temperature 36.6 C (97.8 F) 10/15/2024 10:14 AM EDT Respiratory Rate 16 10/15/2024 10:14 AM EDT Oxygen Saturation 97% 10/15/2024 10:14 AM EDT Inhaled Oxygen Concentration - - Weight 72.8 kg (160 lb 7.9 oz) 10/15/2024 10:14 AM EDT Height 157.5 cm (5' 2 ) 10/15/2024 10:14 AM EDT Body Mass Index 29.35 10/15/2024 10:14 AM EDT Plan of Treatment Health Maintenance Due Date Last Done Comments [facility]-Bone Density Scan 1959 [facility]-Hepatitis C Screening 1959 [facility]-Medicare Annual Wellness (AWV) 1959 [facility]-Infant/Child/Adol SDOH Screenings 1959 [facility]- SDOH Screenings 1977 [facility]-Adult SDOH Screenings 1977 [facility]-Pneumococcal Vaccine: 50 + Years (1 of 2 - PCV) 1978 [facility]-Zoster Vaccines (1 of 2) 1978 CT Colonography 02/15/2004 Colonoscopy 02/15/2004 FIT-DNA 02/15/2004 FIT 02/15/2004 FOBT 02/15/2004 Sigmoidoscopy 02/15/2004 [facility]-Colorectal Cancer Screening 02/15/2004 [facility]-Breast Cancer Screening 2009 [id number] Vaccine (3 - Moderna risk series) 10/13/2021 09/15/2021, 08/17/2021 [facility]-Influenza Vaccine (#1) 03/24/202505/11, 06/09/2020 [facility]-Depression Screening 10/15/2025 10/15/2024 [facility]-DTaP,Tdap,and Td Vaccine s (4 - Td or Tdap) 03/12/2032 03/12/2022, 08/04/2019, 10/29/2014 [facility]-RSV Vaccine: 60+ Years o r (1 - 1-dose 75+ series) 2034 [facility]-Obesity Intervention Completed 025, 08/20/2024 HPV Vaccines Aged Out No longer eligi ble based on patient's age to complete this topic [facility]-HIB Vaccines Aged Out No longer e ligible based on patient's age to complete this topic [facility]-Hepatitis A Vaccines Aged Out No longer eligible based on patient's age to complete this topic [facility]Y-IPV Vaccines Aged Out No longer e ligible based on patient's age to complete this topic [facility]-Rotavirus Vaccines Aged Out No lo nger eligible based on patient's age to complete this topic Insurance MEDICAID [facility] MEDICARE Care Teams Director Call Center Sales Relationship Specialty Start Date End Date Brandi Salazar APRN [address] [place] [address] PCP - General 02/13/25
--- OUTSIDE RECORDS SUMMARY | 2025-02-17 11:54 | XMS_ITS | Encounter Summary ---
Author Organization Healthcare Address [address] [place] [address] Care Team Providers Care Mortgage Loan Processing Clerk Name Role Phone Frank Newton MD Primary Care Provider + [phone] Brandi Salazar APRN Primary Care Provider [phone] Encounter Details Date Type Department Care Team (Late st Contact Info) Description 08/15/2024 Lab Requisition [facility] [address] [place] [address] Mika Henson MD [address] [facility] [address] [place] [address] Anemia, unspecified Social History Tobacco Use Types Packs/Day Years Used Date Smoking Tobacco: Never Assessed Comments Unknown Sex and Gender Information Value Date Recorded Sex Assigned at Not on file Legal Sex Female 7:36 PM EDT Gender Identity Not on file Sexual Orientation Not on file documented as of this encounter Plan of Treatment Not on file documented as of this encounter Procedures Procedure Name Priority Date/Time Associated Diagnosis Comments SURGICAL PATHOLOGY CONSULT Routine 08/15/2024 11:13 AM EST Anemia, unspecified documented in this encounter Results * Surgical Pathology Consult (08/15/2024 11:13 AM EST) Case Report Sugical Pathology Consult Case: [id number] Authorizing Provider: Mika Henson MD Collected: 08/15/2024 1113 Ordering Location: [facility] Received: 08/15/2024 1113 Pathologist: Randolph Pulido DO Specimen: Colon, [id number] 08/20/2024 4:08 PM EST [facility] Final Diagnosis OUTSIDE SLIDES; [id number], A-G; 08/05/2024 A. STOMACH, BIOPSY: - REACTIVE GASTROPATHY. - NO EVIDENCE OF HELICOBACTER-LIK E ORGANISMS ON ROUTINE STAIN. B. LARGE INTESTINE, DESCENDING COLON, POLYPS X3, BIOPSY: - MODERATELY DIFFERENTIATED ADENOCARCINOMA (SEE COMMENT). - FRAGMENTS OF TUBULAR ADENOMA(S). C. LARGE INTESTINE, TRANSVERSE COLON, POLYPS X3, BIOPSY: - MODERATELY DIFFERENTIATED ADENOCARCINOMA (SEE COMMENT). - FRAGMENTS OF TUBULAR ADENOMA(S). - MMR BY IHC (PER REPORT): - RETAINED NUCLEAR STAINING OF ALL FOUR PROTEINS (MLH1, PMS2, MSH2 AND MSH6). D. LARGE INTESTINE, CECUM, POLYPS X3, BIOPSY: - FRAGMENTS OF TUBULAR ADENOMA(S). - NEGATIVE FOR HIGH-GRADE DYSPLASIA OR CARCINOMA. E. LARGE INTESTINE, ASCENDING COLON, POLYPS X4, BIOPSY: - FRAGMENTS OF TUBULAR ADENOMA(S). - NEGATIVE FOR HIGH-GRADE DYSPLASIA OR CARCINOMA. F. LARGE INTESTINE, SIGMOID COLON, POLYPS X2, BIOPSY: - FRAGMENTS OF TUBULAR ADENOMA(S). - NEGATIVE FOR HIGH-GRADE DYSPLASIA OR CARCINOMA. G. LARGE INTESTINE, SIGMOID COLON, DISTAL, POLYP, BIOPSY: - TUBULAR ADENOMA WITH MICROSCOPIC FINDINGS OF MUCOSAL PROLAPSE. - NEGATIVE FOR HIGH-GRADE DYSPLASIA OR CARCINOMA. 08/20/2024 4:08 PM EST [facility] at 1608 EST Comment The biopsies designated as descending colon and transverse colon both harbor fragments of moderately differentiated adenocarcinoma. The endoscopic findings and reported sizes of polyps identified is reviewed (see colonoscopy report for details of polyp sizes and location) in conjunction with the biopsy material. The possibility of carryover/contam ination cannot be excluded. Correlation with imaging findings or repeat colonoscopy should be considered for localization of tumor(s). 08/20/2024 4:08 PM EST [facility] Clinical Information D64.9 - Anemia, unspecified [ICD-10-CM] 08/20/2024 4:08 PM EST [facility] Gross Description A. [id number] Received along with a corresponding pathology report from [facility] are 15 slides labeled outside case: [id number] collected on 08/05/2024. 08/20/2024 4:08 PM EST [facility] Intradepartmental Consultation with Agreement Dr. Elias 08/20/2024 4:08 PM EST [facility] Note: A resident was involved in the service. I attest I examined the relevant preparations for the specimens and confirmed the diagnosis or interpretation. 08/20/2024 4:08 PM EST [facility] Tissue Colon structure / Unknown 08/15/2024 11:13 AM EST 08/15/2024 11:13 AM EST us Mika Henson MD LAB PATHOLOGY ORDERABLES Final Result [facility] [address] [place] [address] documented in this encounter Visit Diagnoses Diagnosis Anemia, unspecified documented in this encounter Care Teams Mortgage Loan Processing Clerk Relationship Specialty Start Date End Date Frank Newton MD [address] [place] [address] PCP - General 07/24/24 02/12/25 Brandi Salazar APRN [address] [place] [address] PCP - General 02/13/25 documented as of this encounter
--- OUTSIDE RECORDS SUMMARY | 2025-02-17 11:54 | XMS_ITS | Encounter Summary ---
Author Organization Healthcare Address [address] [place] [address] Care Team Providers Care Paper Stripper Name Role Phone Brandi Salazar APRN Primary Care Provider [phone] Reason for Visit * Reason Onset Date Comments HCN Clinical Concern/Question 02/13/2025 Encounter Details Date Type Department Care Team (Late st Contact Info) Description 02/13/2025 Telephone [facility] General Surgery [address], [address] [place] [address] Mika Henson MD [address] [place] [address] HCN Clinical Concern/Question Social History Tobacco Use Types Packs/Day Years [...] on file documented as of this encounter Miscellaneous Notes * Telephone Encounter - Isabel See RN - 02/17/2025 9:26 AM EDT Patient was no show for colonoscopy with Dr. Henson on 11/25. Will get her colonoscopy rescheduled and call her. Waiting on to schedule. * Telephone Encounter - Tomasa Linares - 02/13/2025 11:36 AM EDT Clinical Concern/Question Reason for Call: Pt called to schedule colonoscopy Best contact number: Other: [phone] Optimal time of day to reach caller: ANYTIME Additional comments/information from caller: Pt asked us to call her son [phone]. Pt asked if she can be scheduled in the morning. Note: Please do not reply to this message. Follow-up communication and further actions as a result of this message need to be communicated with the patient directly, if the patient is not active onMyChart. If the patient is active on MyChart, they will receive notification of the communication/outcome via [employer]. documented in this encounter Plan of Treatment Not on file documented as of this encounter Visit Diagnoses Not on filedocumented in this encounter Additional Health Concerns Assessment Noted Time A fall risk assessment has been complete d for the patient 10/15/2024 10:21 AM EDT A Body Mass Index follow-up plan has been documented for the patient 10/18/2024 11:16 AM EDT documented as of this encounter Care Teams Paper Stripper Relationship Specialty Start Date End Date Brandi Salazar APRN [address] [place] [address] PCP - General 02/13/25 documented as of this encounter
== END 2025-02-13 23:59 | disposition home or self-care (01) ==
LOC: LAB.DROPOF 02-17 11:52
PROVIDERS: PCP Family Medicine; Visit Provider Family Medicine
DX: D50.9 Iron deficiency anemia, unspecified (principal); D64.9 Anemia, unspecified; R73.09 Other abnormal glucose
CPT/HCPCS: 80053; 82728; 83036; 83540; 85025

== ENCOUNTER 2025-03-17 10:11 | Outpatient (CLI) | payer MEDICARE, MEDICAID, SELFPAY ==
--- OUTSIDE RECORDS SUMMARY | 2024-04-27 05:00 | XMS_ITS ---
Author Organization [facility] [place] Address [address] [address] Care Team Providers Care Collet Gluer Name Role Phone Marielena Choi MD Primary Care Provider UnavailAngel Pineda Unavailable [phone] Migration, Provider Unavailable Unavailable REASON FOR VISIT EMR-Connor Encounters Encounter Location Date Provider Diagnosis [facility] [place] [address] [address] 04/27/2024 Provider Migration Plan Of Treatment No Information Progress Notes * Daniel ROCAOB:[birth year] (65 yo F)Acc No.[id number]:04/27/2024 Patient: Yoly VAUGHAN :1960 A ge:64 Y S ex:Female Address:[address] [place], [address] Subjective: * Chief Complaints: * E MR-Connor * * Date:
--- OUTSIDE RECORDS SUMMARY | 2024-04-28 05:00 | XMS_ITS ---
Author Organization [facility] [place] Address [address] [address] Care Team Providers Care Steffen House Supervisor Name Role Phone Marielena Choi MD Primary Care Provider UnavailAngel Pineda Unavailable [phone] Migration, Provider Unavailable Unavailable REASON FOR VISIT EMR-Connor Encounters Encounter Location Date Provider Diagnosis [facility] [place] [address] [address] 04/28/2024 Provider Migration Plan Of Treatment No Information Progress Notes * Daniel ROCAOB:[birth year] (65 yo F)Acc No.[id number]:04/28/2024 Patient: Yoly VAUGHAN :1960 A ge:64 Y S ex:Female Address:[address] [place], [address] Subjective: * Chief Complaints: * E MR-Connor * * Date:
[2025-03-17 18:00] LABS: Chloride 100 mmol/L (98-107); Potassium 3.2 mmoL/L (3.5-5.1); Sodium 137 mmol/L (136-145)
[2025-03-17 18:03] LABS: Anion Gap 11.2 mEq/L (5-15); Blood Urea Nitrogen 14 mg/dl (7-17); Carbon Dioxide 29 mmol/L (22.0-30.0); Creatinine,Serum 0.60 mg/dl (0.52-1.04); Estimated Glomerular Filt Rate 100 ml/min (>60); GFR (African American) 121 ML/MIN (>60)
[2025-03-17 18:04] LABS: Calcium 9.8 mg/dl (8.4-10.2); Glucose 104 mg/dl (74-100)
--- OUTSIDE RECORDS SUMMARY | 2025-03-19 09:32 | XMS_ITS | Encounter Summary ---
Author Organization Healthcare Address [address] [place] [address] Care Team Providers Care Kitchen Manager Name Role Phone Frank Newton MD Primary Care Provider [phone] Brandi Salazar APRN Primary Care Provider [phone] Encounter Details Date Type Department Care Team (Late Contact Info) Description 08/15/2024 Lab Requisition [facility] [address] [place] [id number] Mika Henson MD [address] [address] Anemia, unspecified Social History Tobacco Use Types Packs/Day Years Used Date Smoking Tobacco: Never Assessed Comments Unknown Sex and Gender Information Value Date Recorded Sex Assigned at Not on file Legal Sex Female 7:36 PM EDT Gender Identity Not on file Sexual Orientation Not on file documented as of this encounter Plan of Treatment Upcoming Encounters Date Type Department Care Team (Late st Contact Info) Description 04/14/2025 11:30 AM EDT Appointment [facility] [address] [place] [address] Mika Henson MD [address] [phone] documented as of this encounter Procedures Procedure Name Priority Date/Time Associated Diagnosis Comments SURGICAL PATHOLOGY CONSULT Routine 08/15/2024 11:13 AM EST Anemia, unspecified documented in this encounter Results * Surgical Pathology Consult (08/15/2024 11:13 AM EST) Case Report Sugical Pathology Consult Case: [id number] Authorizing Provider: Mika Henson MD Collected: 08/15/2024 1113 Ordering Location: [facility] Lab Received: 08/15/2024 1113 Pathologist: Randolph Pulido DO Specimen: Colon, [id number] 08/20/2024 4:08 PM EST [facility] Final Diagnosis OUTSIDE SLIDES; [id number], A-G; 08/05/2024 A. STOMACH, BIOPSY: - REACTIVE [...] DYSPLASIA OR CARCINOMA. 08/20/2024 4:08 PM EST [facility] at 1608 EST Comment The biopsies designated [...] localization of tumor(s). 08/20/2024 4:08 PM EST [facility] Clinical Information D64.9 - Anemia, unspecified [ICD-10-CM] 08/20/2024 4:08 PM EST [facility] Gross Description A. [id number] Received along with a corresponding pathology report from [facility] are 15 slides labeled outside case: [id number] collected on 08/05/2024. 08/20/2024 4:08 PM EST [facility] Intradepartmental Consultation with Agreement Dr. Elias 08/20/2024 4:08 PM EST [facility] Note: A resident was involved in the service. I attest I examined the relevant preparations for the specimens and confirmed the diagnosis or interpretation. 08/20/2024 4:08 PM EST [facility] Tissue Colon structure / Unknown 08/15/2024 11:13 AM EST 08/15/2024 11:13 AM EST us Mika Henson MD LAB PATHOLOGY ORDERABLES Final Result [facility] [address] [place] [address] documented in this encounter Visit Diagnoses Diagnosis Anemia, unspecified documented in this encounter Care Teams Kitchen Manager Relationship Specialty Start Date End Date Frank Newton MD [address] [place] [address] PCP - General 07/24/24 02/12/25 Brandi Salazar APRN [address] [place] [address] PCP - General 02/13/25 documented as of this encounter
--- OUTSIDE RECORDS SUMMARY | 2025-03-19 09:32 | XMS_ITS | Clinical Summary ---
Author Organization Healthcare Address [address] [place] [address] Care Team Providers Care Track Layer Head Name Role Phone Brandi Salazar APRN Primary Care Provider [phone] Allergies Active Allergy Reactions Criticality Noted Date [...] [address] capsule 07/26/2024 Active PEG 1686-PTf-KgSmu-NaCl- NaSulf (PEG-3350/Electrolyt es) 236 g reconstituted solution 08/02/2024 Active potassium chloride ER (Micro-K) 10 MEQ ER capsule 08/16/2024 Active Senna Plus 8.6-50 MG tablet 04/29/2024 Active Xarelto 20 MG tablet 07/25/2024 Active Active Problems Problem Noted Date Diagnosed Date Hypertension Colon cancer Heart disease Encounters Date Type Department Care Team Description 02/13/2025 Telephone [facility] General Surgery [address], [address] [place] [address] Mika Henson MD HCN Clinical [...] 10/15/2024 10:14 AM EDT Plan of Treatment Upcoming Encounters Date Type Department Care Team (Late st Contact Info) Description 04/14/2025 11:30 AM EDT Appointment [facility] [address] [place] [address] Mika Henson MD [id number] [place] [address] Health Maintenance Due Date Last Done Comments [facility]-Bone Density Scan 1959 [facility]-Hepatitis C Screening 1959 [facility]-Medicare Annual Wellness (AWV) 1959 [facility]-/Child/Adol SDOH Screenings 1959 [facility]- SDOH Screenings 1977 [facility]-Adult SDOH Screenings 1977 [facility]-Pneumococcal Vaccine: 50 + Years (1 of 2 - PCV) 1978 [facility]-Zoster Vaccines (1 of 2) 1978 CT Colonography 02/15/2004 Colonoscopy 02/15/2004 FIT-DNA 02/15/2004 FIT 02/15/2004 FOBT 02/15/2004 Sigmoidoscopy 02/15/2004 [facility]-Colorectal Cancer Screening 02/15/2004 [facility]-Breast Cancer Screening 2009 [id number] Vaccine (3 - Moderna risk series) 10/13/2021 [...] on patient's age to complete this topic Goals Goal Patient Goal Type Associated Problems Recent Progress Patient-Stated? Author Autogenerat ed Goal Care Plan Autogenerated Problem No Tomasa Vasquez Additional Health Concerns Active Problems Noted Date Diagnosed Date Autogenerated Problem 02/21/2025 Insurance [facility] [employer] [facility] [place] MEDICAID [facility] MEDICARE Care Teams Track Layer Head Relationship Specialty Start Date End Date Brandi Salazar APRN [address] [place] [address] PCP - General 02/13/25
--- OUTSIDE RECORDS SUMMARY | 2025-03-19 09:32 | XMS_ITS | Patient Health Record ---
Author Organization [facility] [place] Address [address] [address] Care Team Providers Care Project Leader Name Role Phone Marielena Choi MD Primary Care Provider Unavaila Angel Sanders Unavailable [phone] Migration, Provider Unavailable Unavailable Reason For Referral No Information Encounters Encounter Location Date Provider Diagnosis [facility] [place] [address] [address] 04/27/2024 Provider Migration [facility] [place] [address] [address] 04/28/2024 Provider Migration Plan Of Treatment No Information Insurance Providers Payer Name Payer Address Payer Phone Subscriber Number Group Number Insured Name Patient Relationship to Insured Coverage Start Date Coverage End Date [employer] med[employer] [address] [place] [address] [id number] Yoly Luciano Self - patient is the insured
--- OUTSIDE RECORDS SUMMARY | 2025-03-19 09:32 | XMS_ITS | Encounter Summary ---
Author Organization Healthcare Address [address] [place] [address] Care Team Providers Care Hydraulic And Plumbing Installer Name Role Phone Brandi Salazar APRN Primary Care Provider [phone] Reason for Visit * Reason Onset Date Comments HCN Clinical Concern/Question 02/13/2025 Encounter Details Date Type Department Care Team (Late st Contact Info) Description 02/13/2025 Telephone [facility] General Surgery [address] [place] [address] Mika Henson MD [address] [place] [address] HCN Clinical Concern/Question Social History [...] Telephone Encounter - Isabel See RN - 02/25/2025 3:18 PM EDT Tried several times to reach patient and left message of colonoscopy date. Appt instructions placedin mail. * Telephone Encounter - Isabel See RN - 02/21/2025 1:24 PM EDT Colonoscopy rescheduled for 04/14/25 with 9:20 am arrival. Unable to reach patient. Left message with son's phone number to call back. * Telephone Encounter - Isabel See, RN - 02/17/2025 9:26 AM EDT Patient was no show for colonoscopy with Dr. Henson on 11/25. Will get her colonoscopy rescheduled and call her. Waiting on to schedule. * Telephone Encounter - Tomasa Linares - 02/13/2025 11:36 AM EDT Clinical Concern/Question Reason for Call: Pt called to schedule colonoscopy Best contact number: Other: [phone] Optimal time of day to reach caller: ANYTIME Additional comments/information from caller: Pt asked us to call her son [phone]. Pt asked if she can be scheduled in the morning. Note: Please do not reply to this message. Follow-up communication and further actions as a result of this message need to be communicated with the patient directly, if the patient is not active onMyChart. If the patient is active on MyChart, they will receive notification of the communication/outcome via [employer]. documented in this encounter Plan of Treatment Upcoming Encounters Date Type Department Care Team (Late st Contact Info) Description 04/14/2025 11:30 AM EDT Appointment [facility] [address] [place] [address] Mika Henson MD [address] [facility] [address] [place] [address] documented as of this encounter Goals Goal Patient Goal Type Associated Problems Recent Progress Patient-Stated? Author Autogenerat ed Goal Care Plan Autogenerated Problem Tomasa Yi documented as of this encounter Visit Diagnoses Not on filedocumented in this encounter Additional Health Concerns Active Problems Noted Date Diagnosed Date Autogenerated Problem 02/21/2025 Assessment Noted Time A fall risk assessment has been complete d for the patient 10/15/2024 10:21 AM EDT A Body Mass Index follow-up plan has been documented for the patient 10/18/2024 11:16 AM EDT documented as of this encounter Care Teams Hydraulic And Plumbing Installer Relationship Specialty Start Date End Date Brandi Salazar APRN [address] [place] [address] PCP - General 02/13/25 documented as of this encounter
== END 2025-03-17 23:59 | disposition home or self-care (01) ==
LOC: LAB.DROPOF 03-19 09:27
PROVIDERS: PCP Family Medicine; Visit Provider Family Medicine
DX: D50.9 Iron deficiency anemia, unspecified (principal); R73.9 Hyperglycemia, unspecified
CPT/HCPCS: 80048

== ENCOUNTER 2025-07-02 10:24 | Outpatient (CLI) | payer MEDICARE, MEDICAID, SELFPAY ==
[2025-07-02 17:44] LABS: Hematocrit 41.7 % (37.0-47.0); Hemoglobin 13.8 g/dL (12.2-16.2); Immature Granulocytes % 0.5 %; Mean Corpuscular HGB Conc 33.1 g/dL (31.8-35.4); Mean Corpuscular Hemoglobin 31.1 pg (27.0-31.2); Mean Corpuscular Volume 93.9 fl (81-99); Nucleated Red Blood Cells % 0 %; Platelet Count 271 K/mm3 (142-424); Red Blood Count 4.44 M/mm3 (4.20-5.40); Red Cell Distribution Width-SD 44.0 fL; White Blood Count 6.2 K/mm3 (4.8-10.8)
[2025-07-02 18:30] LABS: Alanine Aminotransferase 15 U/L (12-78); Albumin Level 4.1 g/dl (3.5-5.0); Albumin/Globulin Ratio 1.6 (1.1-1.8); Alkaline Phosphatase 78 U/L (38-126); Anion Gap 13.0 mEq/L (5-15); Aspartate Amino Transferase 24 U/L (14-36); Bilirubin,Total 0.6 mg/dl (0.2-1.3); Blood Urea Nitrogen 17 mg/dl (7-17); Calcium 9.3 mg/dl (8.4-10.2); Carbon Dioxide 24 mmol/L (22.0-30.0); Chloride 108 mmol/L (98-107); Creatinine,Serum 0.70 mg/dl (0.52-1.04); Estimated Glomerular Filt Rate 84 ml/min (>60); GFR (African American) 101 ML/MIN (>60); Globulin 2.5 g/dL (1.3-3.2); Glucose 92 mg/dl (74-100); Iron 91 ug/dL (37-170); Potassium 4.0 mmoL/L (3.5-5.1); Sodium 141 mmol/L (136-145); Total Protein,Serum 6.6 g/dl (6.3-8.2)
[2025-07-02 18:40] LABS: Total Iron Binding Capacity 275 ug/dL (265-497)
[2025-07-02 19:06] LABS: Ferritin 55.8 ng/ml (11.1-264)
== END 2025-07-02 23:59 | disposition home or self-care (01) ==
LOC: LAB.DROPOF 07-04 11:42
PROVIDERS: PCP Student in an Organized Health Care Education/Training Program; Visit Provider Family Medicine
DX: D50.9 Iron deficiency anemia, unspecified (principal)
CPT/HCPCS: 80053; 82728; 83540; 83550; 85025